=== PATIENT | female | born 1945 | race Caucasian/White ===

== ENCOUNTER → 2017-02-03 | Outpatient (CLI) | payer MEDICARE, OTHER ==
[2015-05-07 03:33] VITALS: BP 135/76
[~2017-02-03] MED LIST: ALBU18HF IH; AMLO1TAB95 PO; ATOR20TA PO; ATOR40TA PO; FEXO180T81 PO; LEVO50TA5 PO; LISI-334 PO; METO25TA9 PO; TICA90TA PO
[2017-02-03 19:32] LABS: ALBUMIN 3.6 g/dL (3.4-5.0); CALCIUM 9.7 mg/dL (8.5-10.1); CREATININE 1.4 mg/dL (0.6-1.0); GFR 37.2; PHOSPHORUS 4.1 mg/dL (2.6-4.7); POTASSIUM 3.9 mmol/L (3.5-5.1)
[2017-02-03 19:54] LABS: BASO # 0.1 x10^3/uL (0.0-0.2); BASO % 1 % (0-3); EOS # 0.2 x10^3/uL (0.0-0.7); EOS % 2 % (0-3); HEMATOCRIT 45.4 % (36.0-47.0); HEMOGLOBIN 15.2 g/dL (12.0-15.5); LYMPH # 2.7 x10^3/uL (1.0-4.8); LYMPH % 34 % (24-48); MEAN CORPUSCULAR HEMOGLOBIN 31 pg (25-35); MEAN CORPUSCULAR HGB CONC 34 g/dL (31-37); MEAN CORPUSCULAR VOLUME 93 fL (79-100); MONO # 0.6 x10^3/uL (0.0-1.1); MONO % 8 % (0-9); NEUT # 4.3 x10^3uL (1.8-7.7); NEUT % 55 % (31-73); PLATELET COUNT 193 x10^3/uL (140-400); RED BLOOD COUNT 4.87 x10^6/uL (3.50-5.40); RED CELL DISTRIBUTION WIDTH 15.5 % (11.5-14.5); WHITE BLOOD COUNT 7.9 x10^3/uL (4.0-11.0)
[2017-02-04 21:12] LABS: CREATININE PTH 1.29 mg/dL (0.57-1.00); PTH INTACT 45 pg/mL (15-65)
== END | disposition home or self-care (01) ==
LOC: LAB 18:42
PROVIDERS: ATTEND Internal Medicine Nephrology
DX: I12.9 Hypertensive chronic kidney disease with stage 1 through stage 4 chronic kidney disease, or unspecified chronic kidney disease (principal); N18.3 Chronic kidney disease, stage 3 (moderate)
CPT/HCPCS: 36415; 80069; 83970; 85027

== ENCOUNTER → 2017-05-10 | Outpatient (CLI) | payer MEDICARE, OTHER ==
[2015-05-07 03:33] VITALS: BP 135/76
[~2017-05-10] MED LIST changes: +IOHEXOL 240 MG/ML 50ML VIAL. ONE; +IOHEXOL 300 MG/ML 75 ML VIAL. IV ONE; +IOHEXOL 300 MG/ML 75 ML VIAL. ONE; +METO-239 PO; -METO25TA9 PO
[2017-05-10 09:28] LABS: CREATININE 1.4 mg/dL (0.6-1.0); GFR 37.1
--- NOTE | 2017-05-10 11:10 | RAD ---
EXAM: CT abdomen/pelvis with contrast. HISTORY: Incisional hernia. TECHNIQUE: Computed tomography of the abdomen and pelvis was performed after the intravenous administration of 60 mL Omnipaque 300. COMPARISON: 04/28/2013. FINDINGS: Lung windows through the visualized portions of the bases reveal mild atelectasis. Bone windows reveal no suspicious lesions. There is diffuse diastasis of the rectus muscles. The deep fascia protrudes in the periumbilical and supraumbilical regions, most notable superior to the umbilicus, where the distal stomach also protrudes into the region of diastasis. No clear superimposed hernia is present. A small cyst in the left hepatic lobe is stable. Another tiny cyst in segment 5 is likely benign. The gallbladder, pancreas, adrenal glands and spleen are unremarkable. The right kidney is severely atrophic. It contains calculi that measure up to 4 mm. Left renal calculus measures 3-4 mm. A subcentimeter cyst is noted in the left lower pole. There are changes of aortobifemoral bypass. The [place] aorta and iliac systems are segmentally occluded with segmental reconstitution in the common, internal and external iliac segments. The graft remains patent. There is a bulky mostly calcified atheroma just proximal to the origin of the graft that narrows the aortic lumen to 7 mm. There are no pathologically enlarged lymph nodes. Mild stranding in the retroperitoneum is likely postsurgical scarring. The uterus is surgically absent. The appendix is not inflamed. There is no obstruction. IMPRESSION: 1. Diffuse diastasis of the periumbilical and supraumbilical rectus muscles with protrusion of the deep fascia, but no clear hernia. 2. Status post aortobifemoral bypass. A large atheroma just proximal to the origin of the graft results in a abdominal aortic stenosis. The graft remains patent. 3. Severe right renal atrophy. Bilateral renal calculi measure up to 4 mm. *One or more of the following individualized dose reduction techniques were utilized for this examination: 1. Automated exposure control. 2. Adjustment of the mA and/or kV according to patient size. 3. Use of iterative reconstruction technique.
== END | disposition home or self-care (01) ==
LOC: CT 08:38
PROVIDERS: ATTEND Specialist
DX: K43.2 Incisional hernia without obstruction or gangrene (principal); I35.0 Nonrheumatic aortic (valve) stenosis; N20.0 Calculus of kidney; N26.1 Atrophy of kidney (terminal); K76.89 Other specified diseases of liver; J98.11 Atelectasis; Q79.59 Other congenital malformations of abdominal wall; I25.10 Atherosclerotic heart disease of native coronary artery without angina pectoris; I10 Essential (primary) hypertension; E03.9 Hypothyroidism, unspecified; E78.00 Pure hypercholesterolemia, unspecified; F17.210 Nicotine dependence, cigarettes, uncomplicated; Z95.1 Presence of aortocoronary bypass graft; Z90.710 Acquired absence of both cervix and uterus
CPT/HCPCS: 36415; 74177; 82565; Q9966; Q9967

== ENCOUNTER → 2017-09-14 | Outpatient (CLI) | payer MEDICARE, OTHER ==
[2015-05-07 03:33] VITALS: BP 135/76
[~2017-09-14] MED LIST changes: -IOHEXOL 240 MG/ML 50ML VIAL. ONE; -IOHEXOL 300 MG/ML 75 ML VIAL. IV ONE; -IOHEXOL 300 MG/ML 75 ML VIAL. ONE
[2017-09-14 18:48] LABS: BASO # 0.1 x10^3/uL (0.0-0.2); BASO % 1 % (0-3); EOS # 0.3 x10^3/uL (0.0-0.7); EOS % 3 % (0-3); HEMATOCRIT 47.3 % (36.0-47.0); HEMOGLOBIN 15.9 g/dL (12.0-15.5); LYMPH # 3.1 x10^3/uL (1.0-4.8); LYMPH % 32 % (24-48); MEAN CORPUSCULAR HEMOGLOBIN 32 pg (25-35); MEAN CORPUSCULAR HGB CONC 34 g/dL (31-37); MEAN CORPUSCULAR VOLUME 95 fL (79-100); MONO # 0.8 x10^3/uL (0.0-1.1); MONO % 9 % (0-9); NEUT # 5.4 x10^3uL (1.8-7.7); NEUT % 55 % (31-73); PLATELET COUNT 235 x10^3/uL (140-400); RED BLOOD COUNT 4.97 x10^6/uL (3.50-5.40); RED CELL DISTRIBUTION WIDTH 14.2 % (11.5-14.5); WHITE BLOOD COUNT 9.7 x10^3/uL (4.0-11.0)
[2017-09-14 18:59] LABS: ALBUMIN 3.8 g/dL (3.4-5.0); CALCIUM 9.6 mg/dL (8.5-10.1); CREATININE 1.3 mg/dL (0.6-1.0); GFR 40.4; MAGNESIUM 1.8 mg/dL (1.8-2.4); PHOSPHORUS 3.9 mg/dL (2.6-4.7); POTASSIUM 4.1 mmol/L (3.5-5.1)
[2017-09-14 19:06] LABS: BACTERIA,URINE 0 /HPF (0-FEW); BILIRUBIN,URINE NEG (NEG); CLARITY,URINE CLEAR; COLOR,URINE STRAW; GLUCOSE,URINE NEG (NEG); NITRITE,URINE NEG (NEG); RBC,URINE 0 /HPF (0-2); SQUAMOUS EPITHELIAL CELL,UR OCC /LPF; UROBILINOGEN,URINE 0.2 mg/dL (0.2 mg/dL); WBC,URINE OCC /HPF (0-4)
== END | disposition home or self-care (01) ==
LOC: LAB 17:34
PROVIDERS: ATTEND Family Medicine
DX: I12.9 Hypertensive chronic kidney disease with stage 1 through stage 4 chronic kidney disease, or unspecified chronic kidney disease (principal); N18.3 Chronic kidney disease, stage 3 (moderate); E78.5 Hyperlipidemia, unspecified
CPT/HCPCS: 80069; 81001; 83735; 84550; 85025

== ENCOUNTER 2017-12-21 15:08 | Inpatient (IN) | payer MEDICARE, OTHER ==
[~2017-12-21] VITALS: Ht 162.6 cm; Wt 67.4 kg
[2017-12-21] VITALS (8 sets, daily range): BP systolic 138–196; BP diastolic 76–92
[2017-12-21 16:15] LABS: BASO # 0.1 x10^3/uL (0.0-0.2); BASO % 1 % (0-3); EOS # 0.1 x10^3/uL (0.0-0.7); EOS % 1 % (0-3); HEMATOCRIT 46.8 % (36.0-47.0); HEMOGLOBIN 16.1 g/dL (12.0-15.5); LYMPH # 2.2 x10^3/uL (1.0-4.8); LYMPH % 22 % (24-48); MEAN CORPUSCULAR HEMOGLOBIN 32 pg (25-35); MEAN CORPUSCULAR HGB CONC 34 g/dL (31-37); MEAN CORPUSCULAR VOLUME 93 fL (79-100); MONO # 0.8 x10^3/uL (0.0-1.1); MONO % 9 % (0-9); NEUT # 6.6 x10^3uL (1.8-7.7); NEUT % 67 % (31-73); PLATELET COUNT 246 x10^3/uL (140-400); RED BLOOD COUNT 5.02 x10^6/uL (3.50-5.40); RED CELL DISTRIBUTION WIDTH 13.7 % (11.5-14.5); WHITE BLOOD COUNT 9.7 x10^3/uL (4.0-11.0)
[2017-12-21] MEDS ORDERED: ASPI-630 PO (16:23)
[2017-12-21] MEDS ORDERED: ALBU8.5H8 INH (16:23)
--- NOTE | 2017-12-21 16:28 | RAD ---
Chest, 2 views, 12/21/2017: HISTORY: Shortness of breath, weakness Comparison is made to a study from 05/07/2015. The heart is at the upper limits of normal in size. There is mild calcific plaquing and tortuosity of the thoracic aorta. The pulmonary vascularity is normal. A calcified granuloma is present in the right upper lobe. No acute infiltrate is seen. There is no evidence of pleural fluid. IMPRESSION: 1. Borderline cardiomegaly and aortic atherosclerosis. 2. No acute abnormality is detected. Electronically signed by: Collin Mosquera MD (12/21/2017 4:24 PM) [facility]
[2017-12-21 16:30] LABS: ALBUMIN 3.7 g/dL (3.4-5.0); CALCIUM 10.1 mg/dL (8.5-10.1); CREATININE 1.1 mg/dL (0.6-1.0); POTASSIUM 4.1 mmol/L (3.5-5.1); TOTAL BILIRUBIN 0.3 mg/dL (0.2-1.0); TOTAL PROTEIN 7.4 g/dL (6.4-8.2)
[2017-12-21] MEDS: hydrALAZINE 20 MG/ML VIAL. IV PRN (17:11)
[2017-12-21] MEDS ORDERED: ALBUTEROL SULFATE 8GM INHALER. INH PRN (18:30)
[2017-12-21] MEDS ORDERED: ALBUTEROL SULFATE 2.5 MG/3 ML NEBU. NEB PRN (18:45)
--- NOTE | 2017-12-21 18:50 | EKG ---
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
[2017-12-21 19:25] LABS: BACTERIA,URINE 0 /HPF (0-FEW); BILIRUBIN,URINE NEG (NEG); CLARITY,URINE CLEAR; COLOR,URINE STRAW; GLUCOSE,URINE NEG (NEG); NITRITE,URINE NEG (NEG); RBC,URINE OCC /HPF (0-2); SQUAMOUS EPITHELIAL CELL,UR OCC /LPF; UROBILINOGEN,URINE 0.2 mg/dL (0.2 mg/dL); WBC,URINE OCC /HPF (0-4)
[2017-12-21] MEDS: hydrALAZINE 25 MG TABLET PO SCH (20:00)
[2017-12-21] MEDS: ATORVASTATIN CALCIUM 20 MG TABLET PO SCH (20:00)
[2017-12-22] VITALS (16 sets, daily range): BP systolic 119–206; BP diastolic 57–92
[2017-12-22] MEDS: hydrALAZINE 20 MG/ML VIAL. IV PRN (00:55)
[2017-12-22 06:25] LABS: BASO # 0.1 x10^3/uL (0.0-0.2); BASO % 1 % (0-3); EOS # 0.2 x10^3/uL (0.0-0.7); EOS % 2 % (0-3); HEMATOCRIT 45.8 % (36.0-47.0); HEMOGLOBIN 15.5 g/dL (12.0-15.5); LYMPH # 3.1 x10^3/uL (1.0-4.8); LYMPH % 31 % (24-48); MEAN CORPUSCULAR HEMOGLOBIN 31 pg (25-35); MEAN CORPUSCULAR HGB CONC 34 g/dL (31-37); MEAN CORPUSCULAR VOLUME 93 fL (79-100); MONO # 0.9 x10^3/uL (0.0-1.1); MONO % 9 % (0-9); NEUT # 5.8 x10^3uL (1.8-7.7); NEUT % 58 % (31-73); PLATELET COUNT 232 x10^3/uL (140-400); RED BLOOD COUNT 4.92 x10^6/uL (3.50-5.40); WHITE BLOOD COUNT 10.1 x10^3/uL (4.0-11.0)
[2017-12-22] MEDS: LEVOTHYROXINE 50 MCG TABLET PO SCH (06:25)
[2017-12-22 06:30] LABS: CALCIUM 9.2 mg/dL (8.5-10.1); CREATININE 1.2 mg/dL (0.6-1.0); GFR 44.3; POTASSIUM 3.9 mmol/L (3.5-5.1)
[2017-12-22] MEDS: LISINOPRIL 20 MG TABLET PO SCH (08:48)
[2017-12-22] MEDS: ASPIRIN 81 MG TAB.CHEW PO SCH (08:48)
[2017-12-22] MEDS: CETIRIZINE HCL 10 MG TABLET PO SCH (08:49)
--- NOTE | 2017-12-22 10:13 | PDOC2 ---
[address]ISONLEXX [address] SUPERVISOR 12/22/17 1013: CONSULT Date of Admission DATE: 12/22/17 TIME: 10:01 Reason for Consult: bradycardia, AVB noted in PCP office. History of Present Illness Ms Hernandez is a 72 year old female with known history of coronary artery disease s /p stemi in 2014 with PCI and stenting to LCX, and peripheral vascular disease s/p aorto bi fem bypass with bilateral TELEVISION PROGRAM DIRECTOR, Profunda and SFA endarterectomy, hypertension and hyperlipidemia. She presented to the PCP office yesterday with complaints of fatigue over the last 3-4 weeks. She did undergo an EKG which was thought to reveal AV block so she was sent to the hospital for evaluation and treatment. She reports sudden onset of fatigue about a month ago. She reports decreased tolerance for ADLs and electroencephalograph technician. Her daughter reports that she frequently falls asleep sitting. She denies any chest discomfort, lightheadedness or dizziness. She denies any palpitations or syncope. She did report to her PCP a cough off and on starting about 1 week ago but currently denies any respiratory symptoms. She does report inhaler use several times per week. She denies congestive symptoms, fever, chills or sick contacts. She denies edema or significant weight change. She also reported to her PCP intermittent Jaw pain for about 1 week but does not currently complain of this symptom. Past Medical History Echo Jul 2017 LVEF 65% Normal wall motion Trace MR Trace TR no significant effusion MPI 01/02/16 Small to moderate infarct involving the base to mid inferior wall without any ischemia Basal inferior wall hypokinesis with EF 69% Cardiac cath 08/19/14 LM without significant stenosis LAD without significant stenosis LCX with 90% midsegment and 100% stenosis in AV groove beyond takeoff of 1st OM. OM1 70% stenosis id to distal segment. RCA without significant stenosis. s/p successful PCI and stent placement with integrity stents to LCX. Femoral Runoff 10/12/14 80% calcified stenosis distal descending aorta. 80% calcified stenosis proximal right common iliac. 90% calcified stenosis left common iliac. 30% stenosis left external iliac. 30% stenosis right common femoral. No significant stenosis left common femoral. 90-95% calcified stenosis very proximal left superficial femoral. 30% stenosis distal left superficial femoral. No significant stenosis bilateral popliteal. 01/28/16 Aorto Bi Femoral Bypass, bilateral TELEVISION PROGRAM DIRECTOR, Profunda and SFA endarterectomy. 03/26/16 ZULAY biphasic/monophasic waveforms and ZULAY indices indicated nor significant arterial insufficiency at rest. 11/13/16 Carotid duplex <50% bilateral ICA with antegrade vertebral flow. Cardiovascular: CAD, HTN, DE, hyperipidemia, Other (PAD) Pulmonary: Other (emphysema) Musculoskeletal: Other (osteoporosis) ENT: Other (chronic rhinitis) Endocrine: Hypothyroidism Past Surgical History: Mastectomy, Hysterectomy, Other (aortobifemoral bypass surgery, left breast nodule removal) Family History hypertension Social History smoker 0.5-1 ppd, no significant ETOH, no illicit drug use Current Medications Current Medications Hydralazine HCl (Apresoline) 10 mg PRN Q6HRS PRN IV ELEVATED BP, SEE COMMENTS Last administered on 12/22/17at 00:55; Start 12/21/17 at 16:45 Albuterol Sulfate (Ventolin Hfa) 1 puff PRN Q6HRS PRN INH SHORTNESS OF BREATH; Start 12/21/17 at 18:30; Status UNV Lisinopril (Prinivil) 20 mg DAILY PO Last administered on 12/22/17at 08:48; Start 12/22/17 at 09:00 Aspirin (Children'S Aspirin) 81 mg DAILY PO Last administered on 12/22/17at 08: 48; Start 12/22/17 at 09:00 Atorvastatin Calcium (Lipitor) 40 mg QHS PO Last administered on 12/21/17at 20: 00; Start 12/21/17 at 21:00 Cetirizine HCl (ZyrTEC) 10 mg DAILY PO Last administered on 12/22/17at 08:49; Start 12/22/17 at 09:00 Levothyroxine Sodium (Synthroid) 50 mcg DAILY07 PO Last administered on at 06:25; Start 12/22/17 at 07:00 Hydralazine HCl (Apresoline) 25 mg TID PO Last administered on 12/21/17at 20:00 ; Start 12/21/17 at 21:00 Albuterol Sulfate (Ventolin) 2.5 mg PRN Q6HRS PRN NEB SHORTNESS OF BREATH; Start 12/21/17 at 18:45 Active Scripts Active Reported Aspirin 81 Mg Tab.chew 81 Mg PO DAILY Proair Hfa Inhaler (Albuterol Sulfate) 8.5 Gm Hfa.aer.ad 1 Puff INH PRN Q6HRS PRN Lipitor (Atorvastatin Calcium) 40 Mg Tablet 40 Mg PO QHS Lisinopril 20 Mg Tablet 20 Mg PO DAILY Metoprolol Succinate ( Xl ) (Metoprolol Succinate) 25 Mg Tab.er.24h 25 Mg PO DAILY Levothyroxine Sodium 50 Mcg Tablet 1 Tab PO DAILY Abbey Allergy (Fexofenadine Hcl) 180 Mg Tablet 180 Mg PO DAILY Allergies: Coded Allergies: Sulfa (Sulfonamide Antibiotics) (Unverified Allergy, Intermediate, 05/07/15 ) sulfamethoxazole (Unverified Allergy, Intermediate, 05/07/15) trimethoprim (Unverified Allergy, Intermediate, 05/07/15) hydrocodone (Unverified Allergy, Mild, vomiting, 05/07/15) I S O L A T I O N *CONTACT* (Verified Allergy, Unknown, 12/23/17) +MRSA screen 12/22/17 Review of System as per HPI or negative General: Alert, Oriented X3, Cooperative, No acute distress HEENT: Atraumatic, EOMI, Mucous membr. moist/pink, Other (no JVD/HJR/carotid bruits) Lungs: Other (decreased with occasional expiratory wheeze) Heart: Other (bradycardic without significant murmurs, no gallops, clicks or rubs) Abdomen: Normal bowel sounds, Soft, No tenderness Extremities: No cyanosis, No edema Neuro: Normal speech, Strength at 5/5 X4 ext Psych/Mental Status: Mental status NL, Mood NL VITALS Vital Signs Date Time Temp Pulse Resp B/P (MAP) Pulse Ox O2 Delivery O2 Flow Rate FiO2 12/22/17 08:48 66 158/87 12/22/17 08:30 Room Air 12/22/17 08:14 20 96 12/22/17 06:15 98.3 Labs Laboratory Tests Test 12/21/17 15:45 12/21/17 19:05 12/21/17 22:00 12/22/17 05:35 White Blood Count 9.7 x10^3/uL (4.0-11.0) 10.1 x10^3/uL (4.0-11.0) Red Blood Count 5.02 x10^6/uL (3.50-5.40) 4.92 x10^6/uL (3.50-5.40) Hemoglobin 16.1 g/dL (12.0-15.5) 15.5 g/dL (12.0-15.5) Hematocrit 46.8 % (36.0-47.0) 45.8 % (36.0-47.0) Mean Corpuscular Volume 93 fL (79-100) 93 fL (79-100) Mean Corpuscular Hemoglobin 32 pg (25-35) 31 pg (25-35) Mean Corpuscular Hemoglobin Concent 34 g/dL (31-37) 34 g/dL (31-37) Red Cell Distribution Width 13.7 % (11.5-14.5) 14.0 % (11.5-14.5) Platelet Count 246 x10^3/uL (140-400) 232 x10^3/uL (140-400) Neutrophils (%) (Auto) 67 % (31-73) 58 % (31-73) Lymphocytes (%) (Auto) 22 % (24-48) 31 % (24-48) Monocytes (%) (Auto) 9 % (0-9) 9 % (0-9) Eosinophils (%) (Auto) 1 % (0-3) 2 % (0-3) Basophils (%) (Auto) 1 % (0-3) 1 % (0-3) Neutrophils # (Auto) 6.6 x10^3uL (1.8-7.7) 5.8 x10^3uL (1.8-7.7) Lymphocytes # (Auto) 2.2 x10^3/uL (1.0-4.8) 3.1 x10^3/uL (1.0-4.8) Monocytes # (Auto) 0.8 x10^3/uL (0.0-1.1) 0.9 x10^3/uL (0.0-1.1) Eosinophils # (Auto) 0.1 x10^3/uL (0.0-0.7) 0.2 x10^3/uL (0.0-0.7) Basophils # (Auto) 0.1 x10^3/uL (0.0-0.2) 0.1 x10^3/uL (0.0-0.2) Sodium Level 138 mmol/L (136-145) 140 mmol/L (136-145) Potassium Level 4.1 mmol/L (3.5-5.1) 3.9 mmol/L (3.5-5.1) Chloride Level 101 mmol/L (98-107) 103 mmol/L (98-107) Carbon Dioxide Level 28 mmol/L (21-32) 28 mmol/L (21-32) Anion Gap 9 (6-14) 9 (6-14) Blood Urea Nitrogen 14 mg/dL (7-20) 14 mg/dL (7-20) Creatinine 1.1 mg/dL (0.6-1.0) 1.2 mg/dL (0.6-1.0) Estimated GFR (Cockcroft-Gault) 49.0 44.3 BUN/Creatinine Ratio 13 (6-20) Glucose Level 108 mg/dL (70-99) 104 mg/dL (70-99) Calcium Level 10.1 mg/dL (8.5-10.1) 9.2 mg/dL (8.5-10.1) Total Bilirubin 0.3 mg/dL (0.2-1.0) Aspartate Amino Transf (AST/SGOT) 14 U/L (15-37) Alanine Aminotransferase (ALT/SGPT) 17 U/L (14-59) Alkaline Phosphatase 113 U/L (46-116) Creatine Kinase 82 U/L (26-192) Troponin I Quantitative 0.078 ng/mL (0-0.055) 0.076 ng/mL (0-0.055) 0.085 ng/mL (0-0.055) BE-Ouz-P-Type Natriuretic Peptide 2737 pg/mL (0-124) Total Protein 7.4 g/dL (6.4-8.2) Albumin 3.7 g/dL (3.4-5.0) Albumin/Globulin Ratio 1.0 (1.0-1.7) Urine Collection Type Unknown Urine Color Straw Urine Clarity Clear Urine pH 7.0 Urine Specific Simpson 1.010 Urine Protein Neg (NEG-TRACE) Urine Glucose (UA) Neg mg/dL (NEG) Urine Ketones (Stick) Neg mg/dL (NEG) Urine Blood Neg (NEG) Urine Nitrite Neg (NEG) Urine Bilirubin Neg (NEG) Urine Urobilinogen Dipstick 0.2 mg/dL (0.2 mg/dL) Urine Leukocyte Esterase Neg (NEG) Urine RBC Occ /HPF (0-2) Urine WBC Occ /HPF (0-4) Urine Squamous Epithelial Cells Occ /LPF Urine Bacteria 0 /HPF (0-FEW) Magnesium Level 1.9 mg/dL (1.8-2.4) Images EKG -Sinus bradycardia, 1st degree AVB, non specific st/t abn EKG from PCP office, sinus bradycardia, 1st degree AVB, non specific st/t abn, PACs. CXR - IMPRESSION: 1. Borderline cardiomegaly and aortic atherosclerosis. 2. No acute abnormality is detected. Assessment/Plan 1. Bradycardia - Sinus bradycardia, 1st degree AVB with occasional PACs. 2. elevated troponin - mild in the setting of uncontrolled hypertension 3. accelerated hypertension 4. CAD with history of stemi in 2014 with PCI/Stent to LCX 5. PAD s/p aortobifem bypass 6. HLD 7. Tobaccoism Bradycardia appears to be sinus with 1st degree AVB. No advanced conduction abnormalities noted. Heart rate has been stable with bradycardia for some time however due to progressive fatigue will hold beta blockers, check TSH and suggest outpatient monitor. Troponin elevation appears to be demand related secondary to accelerated hypertension, however in light of sudden onset of progressive fatigue, as well as intermittent jaw pain reported to PCP, will schedule for MPI to rule out progression of CAD. Hydralazine for improved blood pressure control and will add nitrates as well. Echo in July of this year revealed normal LV function. Check lipids, continue statin and strongly encourage smoking cessation. ED PACHECO MD 12/23/17 1557: CONSULT Assessment/Plan Late entry for 12/22/2017. Patient seen and examined. Agree with above nurse practitioner note. Her EKG does not reveal any evidence of AV block. She has occasional PVCs. Supportive care from a cardiac standpoint. Myocardial perfusion study did not reveal any significant ischemia. LEXX ROSAS APRN Dec 22, 2017 10:13 ED PACHECO MD Dec 23, 2017 15:57
[2017-12-22] MEDS: hydrALAZINE 25 MG TABLET PO SCH ×3 (10:19→20:19)
[2017-12-22] MEDS: ISOSORBIDE MONONITRATE ER 30 MG TAB.ER.24H PO SCH (13:42)
[2017-12-22] MEDS: ATORVASTATIN CALCIUM 20 MG TABLET PO SCH (20:19)
[2017-12-23] MEDS: LEVOTHYROXINE 50 MCG TABLET PO SCH (05:16)
[2017-12-23 05:45] VITALS: BP 146/80
[2017-12-23] MEDS: hydrALAZINE 25 MG TABLET PO SCH ×2 (08:56→15:10)
[2017-12-23] MEDS: ASPIRIN 81 MG TAB.CHEW PO SCH (08:56)
[2017-12-23] MEDS: LISINOPRIL 20 MG TABLET PO SCH (08:56)
[2017-12-23] MEDS: ISOSORBIDE MONONITRATE ER 30 MG TAB.ER.24H PO SCH (08:56)
[2017-12-23] MEDS: CETIRIZINE HCL 10 MG TABLET PO SCH (08:57)
[2017-12-23] MEDS ORDERED: REGADENOSON 0.4 MG/5 ML DISP.SYRIN. IV ONE (09:00)
[2017-12-23 10:52] VITALS: BP 144/70
--- NOTE | 2017-12-23 13:47 | PDOC ---
PROGRESS NOTES Assessment 1. Bradycardia - Sinus bradycardia, 1st degree AVB with occasional PACs. - rate improved off beta blockers. More frequent PVCs. Outpatient monitor with PVC burden on discharge. 2. elevated troponin - mild in the setting of uncontrolled hypertension - MPI today 3. accelerated hypertension - blood pressure significantly improved on hydralazine and imdur. 4. CAD with history of stemi in 2014 with PCI/Stent to LCX - continue current medical mgmt and await MPI 5. PAD s/p aortobifem bypass - continue medical mgmt 6. HLD- lipids pending 7. Tobaccoism - cessation encouraged Subjective seen during stress testing. no chest pain, no significant palpitations, no lightheadedness. Objective tele sinus rhythm with PACs and PVCs. 1x 5beat NSVT. No AV block noted. Vital Signs Date Time Temp Pulse Resp B/P (MAP) Pulse Ox O2 Delivery O2 Flow Rate FiO2 12/23/17 10:52 98.7 84 20 144/70 (94) 93 Room Air Intake and Output 12/23/17 07:00 Intake Total 1420 ml Balance 1420 ml Intake Oral 1420 ml # Voids 4 Abdomen: Normal bowel sounds, Soft Heart: Other (IRR, no gallops, clicks or rubs) Extremities: No cyanosis, Normal pulses General: Alert, Oriented X3, Cooperative Lungs: Other (decreased) Neuro: Normal speech, Strength at 5/5 X4 ext Psych/Mental Status: Mental status NL, Mood NL Review of Relevant I have reviewed the following items zakia (where applicable) has been applied. Labs Laboratory Tests Test 12/21/17 15:45 12/21/17 19:05 12/21/17 22:00 12/22/17 00:25 White Blood Count 9.7 x10^3/uL (4.0-11.0) Red Blood Count 5.02 x10^6/uL (3.50-5.40) Hemoglobin 16.1 g/dL (12.0-15.5) Hematocrit 46.8 % (36.0-47.0) Mean Corpuscular Volume 93 fL (79-100) Mean Corpuscular Hemoglobin 32 pg (25-35) Mean Corpuscular Hemoglobin Concent 34 g/dL (31-37) Red Cell Distribution Width 13.7 % (11.5-14.5) Platelet Count 246 x10^3/uL (140-400) Neutrophils (%) (Auto) 67 % (31-73) Lymphocytes (%) (Auto) 22 % (24-48) Monocytes (%) (Auto) 9 % (0-9) Eosinophils (%) (Auto) 1 % (0-3) Basophils (%) (Auto) 1 % (0-3) Neutrophils # (Auto) 6.6 x10^3uL (1.8-7.7) Lymphocytes # (Auto) 2.2 x10^3/uL (1.0-4.8) Monocytes # (Auto) 0.8 x10^3/uL (0.0-1.1) Eosinophils # (Auto) 0.1 x10^3/uL (0.0-0.7) Basophils # (Auto) 0.1 x10^3/uL (0.0-0.2) Sodium Level 138 mmol/L (136-145) Potassium Level 4.1 mmol/L (3.5-5.1) Chloride Level 101 mmol/L (98-107) Carbon Dioxide Level 28 mmol/L (21-32) Anion Gap 9 (6-14) Blood Urea Nitrogen 14 mg/dL (7-20) Creatinine 1.1 mg/dL (0.6-1.0) Estimated GFR (Cockcroft-Gault) 49.0 BUN/Creatinine Ratio 13 (6-20) Glucose Level 108 mg/dL (70-99) Calcium Level 10.1 mg/dL (8.5-10.1) Total Bilirubin 0.3 mg/dL (0.2-1.0) Aspartate Amino Transf (AST/SGOT) 14 U/L (15-37) Alanine Aminotransferase (ALT/SGPT) 17 U/L (14-59) Alkaline Phosphatase 113 U/L (46-116) Creatine Kinase 82 U/L (26-192) Troponin I Quantitative 0.078 ng/mL (0-0.055) 0.076 ng/mL (0-0.055) VC-Fzk-M-Type Natriuretic Peptide 2737 pg/mL (0-124) Total Protein 7.4 g/dL (6.4-8.2) Albumin 3.7 g/dL (3.4-5.0) Albumin/Globulin Ratio 1.0 (1.0-1.7) Thyroid Stimulating Hormone (TSH) 3.534 uIU/mL (0.358-3.740) Urine Collection Type Unknown Urine Color Straw Urine Clarity Clear Urine pH 7.0 Urine Specific [place] 1.010 Urine Protein Neg (NEG-TRACE) Urine Glucose (UA) Neg mg/dL (NEG) Urine Ketones (Stick) Neg mg/dL (NEG) Urine Blood Neg (NEG) Urine Nitrite Neg (NEG) Urine Bilirubin Neg (NEG) Urine Urobilinogen Dipstick 0.2 mg/dL (0.2 mg/dL) Urine Leukocyte Esterase Neg (NEG) Urine RBC Occ /HPF (0-2) Urine WBC Occ /HPF (0-4) Urine Squamous Epithelial Cells Occ /LPF Urine Bacteria 0 /HPF (0-FEW) Nasal Screen MRSA (PCR) Positive (Negative) Test 12/22/17 05:35 12/23/17 05:51 White Blood Count 10.1 x10^3/uL (4.0-11.0) Red Blood Count 4.92 x10^6/uL (3.50-5.40) Hemoglobin 15.5 g/dL (12.0-15.5) Hematocrit 45.8 % (36.0-47.0) Mean Corpuscular Volume 93 fL (79-100) Mean Corpuscular Hemoglobin 31 pg (25-35) Mean Corpuscular Hemoglobin Concent 34 g/dL (31-37) Red Cell Distribution Width 14.0 % (11.5-14.5) Platelet Count 232 x10^3/uL (140-400) Neutrophils (%) (Auto) 58 % (31-73) Lymphocytes (%) (Auto) 31 % (24-48) Monocytes (%) (Auto) 9 % (0-9) Eosinophils (%) (Auto) 2 % (0-3) Basophils (%) (Auto) 1 % (0-3) Neutrophils # (Auto) 5.8 x10^3uL (1.8-7.7) Lymphocytes # (Auto) 3.1 x10^3/uL (1.0-4.8) Monocytes # (Auto) 0.9 x10^3/uL (0.0-1.1) Eosinophils # (Auto) 0.2 x10^3/uL (0.0-0.7) Basophils # (Auto) 0.1 x10^3/uL (0.0-0.2) Sodium Level 140 mmol/L (136-145) Potassium Level 3.9 mmol/L (3.5-5.1) Chloride Level 103 mmol/L (98-107) Carbon Dioxide Level 28 mmol/L (21-32) Anion Gap 9 (6-14) Blood Urea Nitrogen 14 mg/dL (7-20) Creatinine 1.2 mg/dL (0.6-1.0) Estimated GFR (Cockcroft-Gault) 44.3 Glucose Level 104 mg/dL (70-99) Calcium Level 9.2 mg/dL (8.5-10.1) Magnesium Level 1.9 mg/dL (1.8-2.4) Iron Level 68 ug/dL (50-170) Total Iron Binding Capacity 302 ug/dL (250-450) Iron Saturation 23 % (15-34) Troponin I Quantitative 0.085 ng/mL (0-0.055) Vitamin B12 Level 1094 pg/mL (247-911) Serum Folate 9.32 ng/ml (3.2-20.0) D-Dimer (Alexa) 0.93 mg/L (0.00-0.50) Medications Current Medications Hydralazine HCl (Apresoline) 10 mg PRN Q6HRS PRN IV ELEVATED BP, SEE COMMENTS Last administered on 12/22/17at 00:55; Start 12/21/17 at 16:45 Albuterol Sulfate (Ventolin Hfa) 1 puff PRN Q6HRS PRN INH SHORTNESS OF BREATH; Start 12/21/17 at 18:30; Status UNV Lisinopril (Prinivil) 20 mg DAILY PO Last administered on 12/23/17at 08:56; Start 12/22/17 at 09:00 Aspirin (Children'S Aspirin) 81 mg DAILY PO Last administered on 12/23/17at 08: 56; Start 12/22/17 at 09:00 Atorvastatin Calcium (Lipitor) 40 mg QHS PO Last administered on 12/22/17at 20: 19; Start 12/21/17 at 21:00 Cetirizine HCl (ZyrTEC) 10 mg DAILY PO Last administered on 12/23/17at 08:57; Start 12/22/17 at 09:00 Levothyroxine Sodium (Synthroid) 50 mcg DAILY07 PO Last administered on at 05:16; Start 12/22/17 at 07:00 Hydralazine HCl (Apresoline) 25 mg TID PO Last administered on 12/23/17at 08:56 ; Start 12/21/17 at 21:00 Albuterol Sulfate (Ventolin) 2.5 mg PRN Q6HRS PRN NEB SHORTNESS OF BREATH Last administered on 12/22/17at 10:51; Start 12/21/17 at 18:45 Isosorbide Mononitrate (Imdur) 30 mg DAILY PO Last administered on 12/23/17at 08 :56; Start 12/22/17 at 12:00 Regadenoson (Lexiscan) 0.4 mg 1X ONCE IV Last administered on 12/23/17at 13:22 ; Start 12/23/17 at 09:00; Stop 12/23/17 at 09:01; Status DC Active Scripts Active Reported Aspirin 81 Mg Tab.chew 81 Mg PO DAILY Proair Hfa Inhaler (Albuterol Sulfate) 8.5 Gm Hfa.aer.ad 1 Puff INH PRN Q6HRS PRN Lipitor (Atorvastatin Calcium) 40 Mg Tablet 40 Mg PO QHS Lisinopril 20 Mg Tablet 20 Mg PO DAILY Metoprolol Succinate ( Xl ) (Metoprolol Succinate) 25 Mg Tab.er.24h 25 Mg PO DAILY Levothyroxine Sodium 50 Mcg Tablet 1 Tab PO DAILY Abbey Allergy (Fexofenadine Hcl) 180 Mg Tablet 180 Mg PO DAILY Vitals/I & O Vital Sign - Last 24 Hours 12/22/17 12/22/17 12/22/17 12/22/17 13:42 13:43 16:52 19:25 Temp 99.3 Pulse 83 83 83 Resp 24 B/P (MAP) 181/73 181/73 120/72 (88) Pulse Ox 96 O2 Delivery Room Air Room Air 12/22/17 12/22/17 12/22/17 12/23/17 19:25 20:19 22:20 05:45 Temp 98.2 97.8 98.0 Pulse 86 86 67 78 Resp 18 18 18 B/P (MAP) 143/72 (95) 143/72 124/69 (87) 146/80 (102) Pulse Ox 95 96 95 O2 Delivery Room Air Room Air Room Air 12/23/17 12/23/17 12/23/17 12/23/17 08:56 08:56 08:56 10:52 Temp 98.7 Pulse 78 78 78 84 Resp 20 B/P (MAP) 146/80 146/80 146/80 144/70 (94) Pulse Ox 93 O2 Delivery Room Air Intake and Output 12/22/17 12/22/17 12/23/17 15:00 23:00 07:00 Intake Total 250 ml 1170 ml 0 ml Balance 250 ml 1170 ml 0 ml LEXX ROSAS LANCE CREWMEMBER/MLRS SERGEANT Dec 23, 2017 13:47
--- NOTE | 2017-12-23 14:02 | PN ---
DATE: 12/23/2017 SUBJECTIVE: The patient resting fairly comfortably, going through nuclear studies, stress test and the like for possible coronary artery disease. OBJECTIVE: VITAL SIGNS: Blood pressure 140/70, respiratory rate 20, pulse 84 and afebrile. GENERAL: The patient is alert and oriented. LUNGS: Diminished, but clear. CARDIOVASCULAR: Regular sinus rhythm. ABDOMEN: Soft, nontender. PLAN: We will wait for the results of the testing from the toxics program officer to make further assessment. IMPRESSION: First-degree AV block, borderline cardiomegaly, bradycardia, coronary artery disease, history of stent in 2014. We will await results of the stress test and also continue to encourage her to stop smoking. CIRO AUSTIN MD DR: CHRISTIAN/kat JOB#: [id number] / [id number]
[2017-12-23 15:10] VITALS: BP 144/70
--- NOTE | 2017-12-23 15:28 | RAD ---
MR#: [id number] Date of Study: 12/22/2017 Ordering Physician: LEXX ROSAS, Referring Physician: SIERRA CHAPA Tech: KARSTEN Bingham ARRT (Susan) (N) APPROVED REPORT Test Type: Pharmacological Stress Nurse/Tech: ISIDRO LANDA Test Indications: SOB, ELEVATED TROPONIN,CAD Cardiac History: See Electronic Medical Record Medications: See Electronic Medical Record Medical History: See Electronic Medical Record Resting ECG: SR Resting Heart Rate: 70 bpm Resting Blood Pressure: 159/74mmHg Pretest Chest Pain: None Nurse/Tech Notes SR NO CHANGES Consent: The procedure was explained to the patient in lay terms. Informed consent was witnessed. Josué eout was entered into [employer]. History and Stress Test performed by KARSTEN Bingham ARRT (Susan) (N) Pharm. Details Pharmacologic stress testing was performed using 0.4mg per 5ml of regadenoson given intravenously ove r 7-10 seconds. Stress Symptoms Dyspnea POST EXERCISE Reason for Termination: Infusion complete Target HR: No Max HR: 112 bpm 88% of Maximum Predicted HR: 126 bpm Exercise duration: 6 min:sec, Stage Max Blood Pressure: 168/72mmHg Blood Pressure response to exercise: Normal blood pressure response during stress. Chest Pain: No. ST Change: No. INTERPRETATION Stress EKG Conclusion: NO ACUTE CHANGES Imaging Protocol IMAGE PROTOCOL: Rest Tc-99m/stress Tc-99m 2 days Rest: Stress: Viability: Radiopharm.Tc99m CqurtwsiuMw35e Sestamibi Jznb30gZw 32mCi Img Date 12/22/2017 12/23/2017 Inj-Img [id number]. 90min. Rest Admin Site:IV - Left AntecubitalAdministrator: KARSTEN Bingham ARRT (Susan)(N) Stress Admin Site: IV - Left AntecubitalAdministrator: KARSTEN Bingham ARRT (R)(N) STRESS DATA End Diast. Vol.82.0mlAv. Heart Rate93.0bpm LVEDV index BSA2.0mlCardiac Output0.1L/min End Syst. Vol.24.0mlCO Index BSA5.4L/min LVESV index BSA0.0mlMyocardial Jrfw585.0g Eject. Whpmaucm82.0% Stress Rates Pk. Fill Rate3.84EDV/secLVtime Pk. Fill 170.58msec Pk. Empty Rate4.16ESV/secLVtime Pk. Eject77.09msec 1/3 Pk. Fill1.12EDV/sec Stress Scores Regional WT0.00Summed WT3.00 Regional WM0.00Summed WM4.00 LV Perfusion There is a moderate sized, severe in intensity fixed basal to mid inferior wall defect suggestive of prior infarct without active ischemia. Wall Motion Normal wall motion with EF of 60% LV Perf. Quant 17 Seg. SSS4.00 17 Seg. SRS7.00 17 Seg. SDS0.00 Stress Defect Extent (% LAD)0.00Rest Defect Extent (% LAD)0.00Rev. Defect Extent (% LAD)0.00 Stress Defect Extent (% LCX) 0.00Rest Defect Extent (% LCX)7.50Rev. Defect Extent (% LCX)0.00 Stress Defect Extent (% RCA)26.70Rest Defect Extent (% RCA)32.20Rev. Defect Extent (% RCA)1.10 Stress Defect Extent (% RADHA)8.00Rest Defect Extent (% RADHA)10.20Rev. Defect Extent (% RADHA)0.40 Other Information Quality:Average Risk Assessment: Low-Moderate Risk Conclusion 1. No evidence of EKG changes with stress testing. 2. FIXED inferior wall defect. No ischemia. 3. Low to moderate risk study. 4. EF > 60%. Signed by : Sterling Nation, Electronically Approved : 12/23/2017 15:27:20
[2017-12-23] MEDS ORDERED: HYDR-2868 PO (16:26)
[2017-12-23] MEDS ORDERED: ISOS30TA4 PO (16:26)
--- NOTE | 2017-12-29 17:59 | DS ---
DATE OF DISCHARGE: 12/23/2017 HOSPITAL COURSE: A 72-year-old female came in through the office with generalized weakness, feeling rundown. The patient has significant problems with coronary artery disease as well as vascular disease over the years. The patient's EKG in the office appeared to show some type of a heart block, and as a result of this, the patient was admitted to the hospital for further evaluation and treatment. The patient was brought in. She was seen by Cardiology and evaluated. The diesel retrofit designer felt the patient had some form of a first degree AV block, but did not require any further aggressive therapy. She had bradycardia. She will be seen as an outpatient. She made good progress during the rest of her hospitalization and she was discharged to home. IMPRESSION: Bradycardia, elevated troponin, possibly related to uncontrolled hypertension, accelerated hypertension, coronary artery disease, history of ST elevation myocardial infarction in 2014 with stent placements, peripheral artery disease, aortobifemoral bypass, hyperlipidemia, tobaccoism. The patient will be discharged home on a heart healthy diet, decreased activity. Return for followup with primary care as well as her diesel retrofit designer as an outpatient. CIRO AUSTIN MD DR: CHRISTIAN/kat JOB#: [id number] / [id number]
== END 2017-12-23 17:16 | disposition home or self-care (01) | DRG 310 ==
LOC: ICU 15:08 → 1 SOUTH 15:18 → ICU 12-22 00:15 → 1 SOUTH 12-22 15:02
PROVIDERS: ADMIT Family Medicine; ATTEND Family Medicine
DX: I44.0 Atrioventricular block, first degree (principal); E03.9 Hypothyroidism, unspecified; E78.5 Hyperlipidemia, unspecified; F17.200 Nicotine dependence, unspecified, uncomplicated; I10 Essential (primary) hypertension; I25.10 Atherosclerotic heart disease of native coronary artery without angina pectoris; I70.0 Atherosclerosis of aorta; I25.2 Old myocardial infarction; I73.9 Peripheral vascular disease, unspecified; J31.0 Chronic rhinitis; J43.8 Other emphysema; M81.0 Age-related osteoporosis without current pathological fracture; I51.7 Cardiomegaly; Z82.49 Family history of ischemic heart disease and other diseases of the circulatory system; Z95.5 Presence of coronary angioplasty implant and graft; Z90.710 Acquired absence of both cervix and uterus; Z71.6 Tobacco abuse counseling; Z88.6 Allergy status to analgesic agent; Z88.1 Allergy status to other antibiotic agents; Z88.2 Allergy status to sulfonamides; Z88.8 Allergy status to other drugs, medicaments and biological substances
CPT/HCPCS: 36415; 71046; 78452; 80048; 80053; 81001; 82550; 82607; 82746; 83540; 83550; 83735; 83880; 84443; 84484; 85025; 85379; 87641; 93005; 93017; 94640; 96374; 96375; 96376; A9500; J0360; J2785; J7613

== ENCOUNTER → 2018-03-25 | Outpatient (CLI) | payer MEDICARE, OTHER ==
[~2018-03-25] MED LIST changes: +ALBU8.5H8 INH; +ASPI-630 PO; +HYDR-2868 PO; +ISOS30TA4 PO
[2018-03-25 18:19] LABS: BASO # 0.1 x10^3/uL (0.0-0.2); BASO % 1 % (0-3); EOS # 0.1 x10^3/uL (0.0-0.7); EOS % 2 % (0-3); HEMATOCRIT 41.2 % (36.0-47.0); HEMOGLOBIN 14.3 g/dL (12.0-15.5); LYMPH # 2.7 x10^3/uL (1.0-4.8); LYMPH % 31 % (24-48); MEAN CORPUSCULAR HEMOGLOBIN 32 pg (25-35); MEAN CORPUSCULAR HGB CONC 35 g/dL (31-37); MEAN CORPUSCULAR VOLUME 93 fL (79-100); MONO # 0.7 x10^3/uL (0.0-1.1); MONO % 8 % (0-9); NEUT # 5.1 x10^3uL (1.8-7.7); NEUT % 58 % (31-73); PLATELET COUNT 249 x10^3/uL (140-400); RED BLOOD COUNT 4.45 x10^6/uL (3.50-5.40); RED CELL DISTRIBUTION WIDTH 14.3 % (11.5-14.5); WHITE BLOOD COUNT 8.8 x10^3/uL (4.0-11.0)
[2018-03-25 18:32] LABS: ALBUMIN 3.6 g/dL (3.4-5.0); CALCIUM 9.1 mg/dL (8.5-10.1); CREATININE 1.3 mg/dL (0.6-1.0); GFR 40.3; PHOSPHORUS 3.2 mg/dL (2.6-4.7); POTASSIUM 4.1 mmol/L (3.5-5.1)
[2018-03-26 05:12] LABS: CALCIUM PTH 9.4 mg/dL (8.7-10.3); CREATININE PTH 1.17 mg/dL (0.57-1.00); PTH INTACT 56 pg/mL (15-65)
== END | disposition home or self-care (01) ==
LOC: LAB 17:55
PROVIDERS: ATTEND Internal Medicine Nephrology
DX: I12.9 Hypertensive chronic kidney disease with stage 1 through stage 4 chronic kidney disease, or unspecified chronic kidney disease (principal); N18.3 Chronic kidney disease, stage 3 (moderate); E78.5 Hyperlipidemia, unspecified; E78.00 Pure hypercholesterolemia, unspecified; E03.9 Hypothyroidism, unspecified; J44.9 Chronic obstructive pulmonary disease, unspecified; Z95.5 Presence of coronary angioplasty implant and graft; Z68.25 Body mass index [BMI] 25.0-25.9, adult; Z90.710 Acquired absence of both cervix and uterus; Z88.2 Allergy status to sulfonamides; Z88.1 Allergy status to other antibiotic agents; Z88.8 Allergy status to other drugs, medicaments and biological substances; Z88.5 Allergy status to narcotic agent; Z88.6 Allergy status to analgesic agent; Z82.49 Family history of ischemic heart disease and other diseases of the circulatory system
CPT/HCPCS: 36415; 80069; 83970; 85025

== ENCOUNTER → 2018-04-22 | Outpatient (CLI) | payer MEDICARE, OTHER | END | disposition home or self-care (01) | LOC: LAB 17:52 | PROVIDERS: ATTEND Internal Medicine Nephrology | DX: I12.9 Hypertensive chronic kidney disease with stage 1 through stage 4 chronic kidney disease, or unspecified chronic kidney disease (principal); N18.3 Chronic kidney disease, stage 3 (moderate); E87.1 Hypo-osmolality and hyponatremia; Z71.6 Tobacco abuse counseling; Z68.26 Body mass index [BMI] 26.0-26.9, adult | CPT/HCPCS: 36415; 84295 ==

== ENCOUNTER 2018-05-16 22:15 | Emergency (ER) | payer MEDICARE, OTHER ==
[~2018-05-16] VITALS: Ht 165.1 cm; Wt 65.8 kg
[2018-05-16] MEDS ORDERED: ACETAMINOPHEN/CODEINE 300/30MG TABLET PO ONE (23:00)
[2018-05-17] MEDS ORDERED: ACET-704 PO (00:08)
[2018-05-17] MEDS ORDERED: NAPR-683 PO (00:08)
--- NOTE | 2018-05-17 00:12 | PHYS DOC ---
Past History Past Medical History: Heart Disease, Hypertension, [place], Other Past Surgical History: Other Additional Smoking Information: 1 PPD Alcohol Use: None Drug Use: None Adult General Chief Complaint Chief Complaint: ANKLE PROBLEM [facility] HPI Patient is a 73-year-old female who presents with complaint of pain in injury to her left ankle after she missed a step while going down stairs. She states that she landed awkwardly on that left ankle and felt a twinge of pain. She states that since that time she has not been able to bear weight on the ankle. She states the injury occurred about 5:20 PM today. She denies any other injuries and had no loss of consciousness. She rates the pain at an 8 out of 10. Review of Systems Review of Systems Constitutional: Denies fever or chills [] Respiratory: Denies cough or shortness of breath [] Cardiovascular: No additional information not addressed in HPI [] Musculoskeletal: Complains of left ankle pain [] Integument: Denies rash or skin lesions [] Current Medications Current Medications Current Medications Medications (Trade) Dose Ordered Sig/Anita Start Time Stop Time Status Last Admin Dose Admin Acetaminophen/ Codeine Phosphate (Tylenol #3) 2 tab 1X ONCE 05/16/18 23:00 05/16/18 23:01 DC 05/16/18 22:52 2 TAB Allergies Allergies Allergies Coded Allergies Type Severity Reaction Last Updated Verified Sulfa (Sulfonamide Antibiotics) Allergy Intermediate 05/07/15 No sulfamethoxazole Allergy Intermediate 05/07/15 No trimethoprim Allergy Intermediate 05/07/15 No hydrocodone Allergy Mild vomiting 05/07/15 No I S O L A T I O N *CONTACT* Allergy Unknown 12/23/17 Yes Physical Exam Physical Exam Constitutional: Well developed, well nourished, no acute distress, non-toxic appearance. [] HENT: Normocephalic, atraumatic. [] Cardiovascular:Heart rate regular rhythm [] Lungs & Thorax: Bilateral breath sounds clear to auscultation [] Extremities: Left ankle demonstrates soft tissue swelling and tenderness to palpation around the lateral malleolus. No obvious deformity is noted. Patient unable to bear weight on exam. [] Neurologic: Alert and oriented X 3. [] Current Patient Data Vital Signs Vital Signs Date Time Temp Pulse Resp B/P (MAP) Pulse Ox O2 Delivery O2 Flow Rate FiO2 05/16/18 22:52 20 99 Room Air 05/16/18 22:29 98.1 92 EKG EKG [] Radiology/Procedures Radiology/Procedures [] Impressions: Left ankle films demonstrate lucency through the distal portion of lateral malleolus concerning for nondisplaced fracture. Of note, this is area of greatest tenderness on ankle. Course & Med Decision Making Course & Med Decision Making Pertinent Labs and Imaging studies reviewed. (See chart for details) Patient placed in left posterior OCL splint with stirrup by ER nurse. Good fit and alignment with excellent capillary refill is noted post splinting. Dragon Disclaimer Dragon Disclaimer This electronic medical record was generated, in whole or in part, using a voice recognition dictation system. Departure Departure: Impression: Primary Impression: Fx lateral malleolus-closed Condition: STABLE Referrals: CIRO AUSTIN MD (PCP) HARIS VALDEZ MD Patient Instructions: Ankle Fracture Additional Instructions: Call in the morning to schedule appointment with orthopedic surgeon in the next week. Scripts Naproxen (NAPROSYN) 500 Mg Tablet 1 TAB PO BID PRN for PAIN, #20 TAB Prov: CARL GEE Jr. DO 05/17/18 Acetaminophen With Codeine (TYLENOL WITH CODEINE #3 TABLET) 1 Each Tablet 1-2 TAB PO Q6HRS PRN for PAIN, #16 TAB Prov: CARL GEE Jr. DO 05/17/18 Problem Qualifiers Primary Impression: Fx lateral malleolus-closed Encounter type: initial encounter Fracture alignment: nondisplaced Laterality: left Qualified Codes: S82.65XA - Nondisplaced fracture of lateral malleolus of left fibula, initial encounter for closed fracture CARL GEE Jr. DO May 17, 2018 00:12
[2018-05-17 00:30] VITALS: BP 190/82
--- NOTE | 2018-05-17 08:03 | RAD ---
Examination: ANKLE LEFT 3V History: Left ankle injury on stairs, severe pain and swelling Comparison/Correlation: None Findings: Three-view left ankle x-ray exam was performed. Soft tissue swelling about the lateral malleolus is present. Subtle cortical defect on the frontal view at the lateral malleolar inferior aspect is present. Ankle joint mortise is unremarkable. No bony destruction. Impression: Nondisplaced lateral malleolar fracture and soft tissue swelling. Electronically signed by: Clayton Milton MD (05/17/2018 8:00 AM) [facility]
== END 2018-05-17 00:36 | disposition home or self-care (01) ==
LOC: ER 22:15
DX: S82.65XA Nondisplaced fracture of lateral malleolus of left fibula, initial encounter for closed fracture (principal); I11.9 Hypertensive heart disease without heart failure; I25.2 Old myocardial infarction; F17.210 Nicotine dependence, cigarettes, uncomplicated; Z88.2 Allergy status to sulfonamides; Z88.1 Allergy status to other antibiotic agents; Z88.5 Allergy status to narcotic agent; Z91.041 Radiographic dye allergy status; W10.8XXA Fall (on) (from) other stairs and steps, initial encounter; Y93.89 Activity, other specified; Y92.89 Other specified places as the place of occurrence of the external cause; Y99.8 Other external cause status
CPT/HCPCS: 29515; 73610; 99284

== ENCOUNTER 2018-09-28 20:58 | Emergency (ER) | payer MEDICARE, OTHER ==
[~2018-09-28] VITALS: Ht 165.1 cm; Wt 71.0 kg
[~2018-09-28 20:58] MED LIST changes: +ACET-704 PO; -ALBU18HF IH; +ALBU2.5V8 IH; +ALBU2.5V8 INH; -ALBU8.5H8 INH; +NAPR-683 PO
[2018-09-28] MEDS: ASPIRIN 81 MG TAB.CHEW PO ONE (21:19)
[2018-09-28 21:25] LABS: BASO # 0.1 x10^3/uL (0.0-0.2); BASO % 1 % (0-3); EOS # 0.2 x10^3/uL (0.0-0.7); EOS % 2 % (0-3); HEMATOCRIT 45.6 % (36.0-47.0); HEMOGLOBIN 15.4 g/dL (12.0-15.5); LYMPH # 2.8 x10^3/uL (1.0-4.8); LYMPH % 29 % (24-48); MEAN CORPUSCULAR HEMOGLOBIN 31 pg (25-35); MEAN CORPUSCULAR HGB CONC 34 g/dL (31-37); MEAN CORPUSCULAR VOLUME 92 fL (79-100); MONO # 0.8 x10^3/uL (0.0-1.1); MONO % 8 % (0-9); NEUT # 5.8 x10^3uL (1.8-7.7); NEUT % 60 % (31-73); PLATELET COUNT 269 x10^3/uL (140-400); RED BLOOD COUNT 4.95 x10^6/uL (3.50-5.40); RED CELL DISTRIBUTION WIDTH 14.5 % (11.5-14.5); WHITE BLOOD COUNT 9.7 x10^3/uL (4.0-11.0)
[2018-09-28 21:41] LABS: ALBUMIN/GLOBULIN RATIO 1.3 (1.0-1.7); CALCIUM 9.8 mg/dL (8.5-10.1); CREATININE 1.4 mg/dL (0.6-1.0); TOTAL BILIRUBIN 0.2 mg/dL (0.2-1.0); TOTAL PROTEIN 7.2 g/dL (6.4-8.2)
--- NOTE | 2018-09-28 21:59 | PHYS DOC ---
Past History Past Medical History: Heart Disease, Hypertension, [place], Other Past Surgical History: Other Alcohol Use: None Drug Use: None Adult General Chief Complaint Chief Complaint: CHEST PAIN HPI HPI 73 year old female presents with chest pain. The patient tells me that she had mid scapular pain last night that was severe 8 out of 10. She stated not to come to the emergency room. It did seem to subside. Today, the patient has had additional episodes of chest tightness that are 6 out of 10. She denies shortness of breath or diaphoresis. The patient has a cardiac history with previous heart attack and at least one stent. This was years ago. Her last stress test was a year ago. She denies fever or chills. She takes a baby aspirin daily. Review of Systems Review of Systems Constitutional: Denies fever or chills [] Eyes: Denies change in visual acuity, redness, or eye pain [] HENT: Denies nasal congestion or sore throat [] Respiratory: Denies cough or shortness of breath [] Cardiovascular: No additional information not addressed in HPI [] GI: Denies abdominal pain, nausea, vomiting, bloody stools or diarrhea [] : Denies dysuria or hematuria [] Musculoskeletal: Denies back pain or joint pain [] Integument: Denies rash or skin lesions [] Neurologic: Denies headache, focal weakness or sensory changes [] Endocrine: Denies polyuria or polydipsia [] All other systems were reviewed and found to be within normal limits, except as documented in this note. Current Medications Current Medications Current Medications Medications (Trade) Dose Ordered Sig/[facility] Start Time Stop Time Status Last Admin Dose Admin Aspirin (Children'S Aspirin) 324 mg 1X ONCE 09/28/18 21:15 09/28/18 21:16 DC 09/28/18 21:19 324 MG Allergies Allergies Allergies Coded Allergies Type Severity Reaction Last Updated Verified Sulfa (Sulfonamide Antibiotics) Allergy Intermediate 05/07/15 No sulfamethoxazole Allergy Intermediate 05/07/15 No trimethoprim Allergy Intermediate 05/07/15 No hydrocodone Allergy Mild vomiting 05/07/15 No I S O L A T I O N *CONTACT* Allergy Unknown 12/23/17 Yes Physical Exam Physical Exam Constitutional: Well developed, well nourished, no acute distress, non-toxic appearance. [] HENT: Normocephalic, atraumatic, bilateral external ears normal, oropharynx moist, no oral exudates, nose normal. [] Eyes: PERRLA, EOMI, conjunctiva normal, no discharge. [] Neck: Normal range of motion, no tenderness, supple, no stridor. [] Cardiovascular:Heart rate regular rhythm, no murmur [] Lungs & Thorax: Bilateral breath sounds decreased.[] Abdomen: Bowel sounds normal, soft, no tenderness, no masses, no pulsatile masses. [] Skin: Warm, dry, no erythema, no rash. [] Back: No tenderness, no CVA tenderness. [] Extremities: No tenderness, no cyanosis, no clubbing, ROM intact, no edema. [] Neurologic: Alert and oriented X 3, normal motor function, normal sensory function, no focal deficits noted. [] Psychologic: Affect normal, judgement normal, mood normal. [] Current Patient Data Vital Signs Vital Signs Date Time Temp Pulse Resp B/P (MAP) Pulse Ox O2 Delivery O2 Flow Rate FiO2 09/28/18 21:09 98.3 87 18 99 Room Air Lab Results Laboratory Tests Test 09/28/18 21:11 White Blood Count 9.7 x10^3/uL (4.0-11.0) Red Blood Count 4.95 x10^6/uL (3.50-5.40) Hemoglobin 15.4 g/dL (12.0-15.5) Hematocrit 45.6 % (36.0-47.0) Mean Corpuscular Volume 92 fL (79-100) Mean Corpuscular Hemoglobin 31 pg (25-35) Mean Corpuscular Hemoglobin Concent 34 g/dL (31-37) Red Cell Distribution Width 14.5 % (11.5-14.5) Platelet Count 269 x10^3/uL (140-400) Neutrophils (%) (Auto) 60 % (31-73) Lymphocytes (%) (Auto) 29 % (24-48) Monocytes (%) (Auto) 8 % (0-9) Eosinophils (%) (Auto) 2 % (0-3) Basophils (%) (Auto) 1 % (0-3) Neutrophils # (Auto) 5.8 x10^3uL (1.8-7.7) Lymphocytes # (Auto) 2.8 x10^3/uL (1.0-4.8) Monocytes # (Auto) 0.8 x10^3/uL (0.0-1.1) Eosinophils # (Auto) 0.2 x10^3/uL (0.0-0.7) Basophils # (Auto) 0.1 x10^3/uL (0.0-0.2) Sodium Level 136 mmol/L (136-145) Potassium Level 4.0 mmol/L (3.5-5.1) Chloride Level 99 mmol/L (98-107) Carbon Dioxide Level 28 mmol/L (21-32) Anion Gap 9 (6-14) Blood Urea Nitrogen 19 mg/dL (7-20) Creatinine 1.4 mg/dL (0.6-1.0) H Estimated GFR (Cockcroft-Gault) 37.0 BUN/Creatinine Ratio 14 (6-20) Glucose Level 171 mg/dL (70-99) H Calcium Level 9.8 mg/dL (8.5-10.1) Total Bilirubin 0.2 mg/dL (0.2-1.0) Aspartate Amino Transferase (AST) 14 U/L (15-37) L Alanine Aminotransferase (ALT) 19 U/L (14-59) Alkaline Phosphatase 113 U/L (46-116) Troponin I Quantitative 0.285 ng/mL (0-0.055) H Total Protein 7.2 g/dL (6.4-8.2) Albumin 4.0 g/dL (3.4-5.0) Albumin/Globulin Ratio 1.3 (1.0-1.7) EKG EKG Sinus rhythm, rate 87, normal axis, downsloping ST segments in lead 2, V5, V6. No ST elevations.[] Radiology/Procedures Radiology/Procedures [] Impressions: Rhythm interpretation: No acute cardiopulmonary process. Course & Med Decision Making Course & Med Decision Making Pertinent Labs and Imaging studies reviewed. (See chart for details) The patient's EKG does show some downsloping ST segments in 2, V5 and V6. No elevations. She was given 324 of aspirin on arrival. Her chest x-ray is unremarkable. Her troponin is significant for 0.285. This is higher than her last 3 previous troponins and she has come to the hospital. She did have a troponin of 17 in 2015. The patient's HEART score is 7. I discussed the patient with Dr. Pardo, cardiology and he has recommended the patient be transferred to [facility]. He also requested 25 mg of metoprolol tartrate by mouth, and nitro drip, and heparin protocol. We will start all these in the ED. I discussed the patient with Dr. Vee, the hospitalist and she has accepted the patient for admission. Greater than 35 minutes of critical care time was spent on this patient exclusive of other billable procedures. [] Dragon Disclaimer Dragon Disclaimer This electronic medical record was generated, in whole or in part, using a voice recognition dictation system. Departure Departure: Impression: Primary Impression: Chest pain Additional Impression: NSTEMI (non-ST elevated myocardial infarction) Disposition: 02 XFER SHT-TRM HOSP Condition: GUARDED Referrals: CIRO AUSTIN MD (PCP) Problem Qualifiers Primary Impression: Chest pain Chest pain type: chest pain due to myocardial ischemia Ischemic chest pain type: unstable angina pectoris Qualified Codes: I20.0 - Unstable angina SAPNA WHITLEY DO Sep 28, 2018 21:59
[2018-09-28] MEDS: NITROGLYCERIN SUBLINGUAL 0.4 MG BOTTLE OF 25. SL ONE (22:00)
[2018-09-28] MEDS ORDERED: HEPARIN for IV BOLUS 10,000 UNIT/10 ML VIAL. IV PRN ×2 (22:15)
[2018-09-28] MEDS: METOPROLOL TART IMMED RELEASE 25 MG TABLET PO ONE (22:22)
[2018-09-28] MEDS: HEPARIN for IV BOLUS 10,000 UNIT/10 ML VIAL. IV ONE (22:28)
[2018-09-28] MEDS: NITROGLYCERIN PREMIX 250 ML IV ONE (22:32)
[2018-09-28] MEDS: HEPARIN 25,000UTS/500ML PREMIX 500 ML IV PRN (22:41)
[2018-09-29 00:16] VITALS: BP 133/70
--- NOTE | 2018-09-29 05:02 | RAD ---
AP portable chest radiograph 09/28/2018 Clinical History: Chest pain. An AP erect portable digital radiograph of the chest was obtained. Comparison study is dated 12/21/2017. The cardiac silhouette is mildly enlarged. Atherosclerotic calcification of the thoracic aorta is seen. No acute pulmonary infiltrate is noted. A 1 cm calcified granuloma seen involving the right upper lobe. No pneumothorax or pleural effusion is seen. Degenerative changes are seen involving the thoracic spine. IMPRESSION: No acute abnormality is seen. Electronically signed by: Nigel Duron MD (09/29/2018 4:59 AM) [facility]
--- NOTE | 2018-09-29 09:16 | EKG ---
[address] [address] Test Date: 2018-09-28 Test Time: 21:25:20 Pat Name: KERMIT SALAMANCA Department: Room: Gender: F [employer]: : 1945 Requested By: SAPNA WHITLEY Order Number: [id number] Reading MD: Sterling Nation MD Measurements Intervals [place] Rate: 87 P: 56 SC: 180 QRS: 6 QRSD: 106 T: -174 QT: 336 QTc: 410 Interpretive Statements SINUS RHYTHM VENTRICULAR PREMATURE COMPLEX(ES) CONSIDER LEFT VENTRICULAR HYPERTROPHY ST & T ABNORMALITY, CONSIDER ANTEROLATERAL ISCHEMIA OR LEFT VENTRICULAR STRAIN INFEROLATERAL ISCHEMIA OR LEFT VENTRICULAR STRAIN ABNORMAL ECG Electronically Signed On 10-02-2018 21:59:46 CDT by Sterling Nation MD
[2018-12-05] MEDS ORDERED: MONT10TA9 PO (12:22)
[2018-12-05] MEDS ORDERED: LIPITOR80 MG PO (12:22)
[2018-12-05] MEDS ORDERED: LEVO75TA5 PO (12:22)
[2018-12-05] MEDS ORDERED: TRAZ-120 PO (12:22)
== END 2018-09-29 00:34 | disposition short-term general hospital (02) ==
LOC: ER 20:58
DX: I21.4 Non-ST elevation (NSTEMI) myocardial infarction (principal); I20.0 Unstable angina; I11.9 Hypertensive heart disease without heart failure; I25.2 Old myocardial infarction; Z79.82 Long term (current) use of aspirin; Z88.2 Allergy status to sulfonamides; Z88.1 Allergy status to other antibiotic agents; Z88.5 Allergy status to narcotic agent; Z91.041 Radiographic dye allergy status
CPT/HCPCS: 36415; 71045; 80053; 84484; 85025; 85610; 85730; 93005; 96365; 96367; 96368; 96376; J1644; J3490; 99291-25

== ENCOUNTER → 2019-02-09 | Outpatient (CLI) | payer MEDICARE, OTHER ==
[~2019-02-09] MED LIST changes: +LEVO75TA5 PO; +LIPITOR80 MG PO; +MONT10TA80 PO; +TRAZ-120 PO
--- NOTE | 2019-02-09 14:24 | CARD ---
MR#: [id number] Date of Study: 02/09/2019 Ordering Physician: DIANA DÍAZ, Referring Physician: DIANA DÍAZ, Tech: Luna An APPROVED REPORT EXAM: Two-dimensional and M-mode echocardiogram with Doppler and color Doppler. Other Information Quality : AverageHR: 68bpm INDICATION Cardiac Disease: CAD Surgery/Intervention Two Stents RISK FACTORS Hypertension Hyperlipidemia Smoking 2D DIMENSIONS Left Atrium(2D)4.0 (1.6-4.0cm)IVSd0.9 (0.7-1.1cm) Aortic Root(2D)2.9 (2.0-3.7cm)LVDd5.9 (3.9-5.9cm) LVOT Diameter2.0 (1.8-2.4cm)PWd0.9 (0.7-1.1cm) LVDs5.0 (2.5-4.0cm)FS (%) 15.8 % SV57.3 mlLVEF(%)32.7 (>50%) Aortic Valve AoV Peak Eran.143.4cm/sAoV VTI30.4cm AO Peak GR.8.2mmHgLVOT Peak Eran.126.9cm/s LVOT VTI 25.38cmAO Mean GR.4mmHg LILY (VMAX)2.01cy5TCB (VTI)2.50cm2 Mitral Valve MV E Tlwhzhqm41.7cm/sMV DECEL JPNI847wy MV A Qaiestvw95.3cm/sE/A Ratio0.6 Pulmonary Valve PV Peak Skhpaoof061.3cm/sPV Peak Grad.4mmHg Tricuspid Valve TR P. Gaqkdumd237ls/sRAP PBUWFFGA8duPe TR Peak Gr.35nsOvMHME25fiJw Pulmonary Vein S1 Ulszzeit09.1cm/sD2 Exglzdcl06.9cm/s LEFT VENTRICLE The Left Ventricle is moderately dilated. There is normal left ventricular wall thickness. The left v entricular systolic function is mildly decreased. EF 40-45% There is slight global hypokinesis of the left ventricle. The proximal to mid septum and inferior wall are severely hypokinesis. Transmitral D oppler flow pattern is Grade I-abnormal relaxation pattern. RIGHT VENTRICLE The right ventricle is normal size. The right ventricle is borderline hypertrophied. The right ventri cular systolic function is normal. ATRIA The left atrium size is normal. The right atrium size is normal. The interatrial septum is intact wit h no evidence for an atrial septal defect or patent foramen ovale as noted on 2-D or Doppler imaging. AORTIC VALVE The aortic valve is not well visualized. Doppler and Color Flow revealed trace to mild aortic regurgi tation. There is no significant aortic valvular stenosis. MITRAL VALVE The mitral valve is normal in structure and function. There is no evidence of mitral valve prolapse. There is no mitral valve stenosis. Doppler and Color-flow revealed trace mitral regurgitation. TRICUSPID VALVE The tricuspid valve is not well visualized. Doppler and Color Flow revealed no tricuspid valve regurg itation noted with an estimated PAP of 21 mmHg. There is no tricuspid valve stenosis. PULMONIC VALVE The pulmonic valve is not well visualized. Doppler and Color Flow revealed no pulmonic valvular regur gitation. There is no pulmonic valvular stenosis. GREAT VESSELS The aortic root is normal in size. The IVC is normal in size and collapses >50% with inspiration. PERICARDIAL EFFUSION There is a trace circumferential pericardial effusion. Critical Notification Critical Value: No <Conclusion> The left ventricular systolic function is mildly decreased. EF 40-45% There is slight global hypokinesis of the left ventricle. The proximal to mid septum and inferior wal l are severely hypokinesis. Signed by : Sterling Nation, Electronically Approved : 02/09/2019 14:24:03
== END | disposition home or self-care (01) ==
LOC: ECHO 12:46
PROVIDERS: ATTEND Internal Medicine Cardiovascular Disease
DX: I35.1 Nonrheumatic aortic (valve) insufficiency (principal); I31.3 Pericardial effusion (noninflammatory); I25.10 Atherosclerotic heart disease of native coronary artery without angina pectoris; I10 Essential (primary) hypertension; E78.5 Hyperlipidemia, unspecified; Z87.891 Personal history of nicotine dependence
CPT/HCPCS: 93306

== ENCOUNTER 2019-03-02 20:50 | Emergency (ER) | payer MEDICARE, OTHER ==
[~2019-03-02] VITALS: Ht 162.6 cm; Wt 71.0 kg
[2019-03-02] MEDS ORDERED: methylPREDNISolone SOD SUCC PF 125 MG/2 ML VIAL. IV ONE (22:00)
[2019-03-02] MEDS ORDERED: DOXYCYCLINE HYCLATE 100 MG TABLET PO ONE (22:00)
[2019-03-02] MEDS ORDERED: IPRATRPIUM/ALBUTEROL 0.5/2.5MG 3 ML NEBU. NEB ONE (22:00)
--- NOTE | 2019-03-02 22:11 | PHYS DOC ---
Past History Past Medical History: Heart Disease, Hypertension, PR, Other Past Surgical History: Other Alcohol Use: None Drug Use: None Adult General Chief Complaint Chief Complaint: SHORTNESS OF BREATH HPI HPI Patient is a 73-year-old female who is presenting with shortness of breath. She's been coughing it feels like she is short of breath because it is hard to get the mucus out. She does not know what color it is because she's been unable to cough it up no fever that she knows of denies any chest pain she said she went to her doctor the other day who gave her steroid medication however no antibiotics were given and she thinks she needs those. She is not on any diuretic at all she tells me she's been eating and drinking just fine Review of Systems Review of Systems Constitutional: Denies fever or chills [] Eyes: Denies change in visual acuity, redness, or eye pain [] Cardiovascular: No additional information not addressed in HPI [] GI: Denies abdominal pain, nausea, vomiting, bloody stools or diarrhea [] : Denies dysuria or hematuria [] \ Neurologic: Denies headache, focal weakness or sensory changes [] \ All other systems were reviewed and found to be within normal limits, except as documented in this note. Current Medications Current Medications Current Medications Medications (Trade) Dose Ordered Sig/Anita Start Time Stop Time Status Last Admin Dose Admin Albuterol/ Ipratropium (Duoneb) 3 ml 1X ONCE 03/02/19 22:00 03/02/19 22:01 DC 03/02/19 22:06 3 ML Doxycycline Hyclate (Vibra-Tab) 100 mg 1X ONCE 03/02/19 22:00 03/02/19 22:01 DC 03/02/19 22:06 100 MG Methylprednisolone Sodium Succinate (SOLU-Medrol 125MG VIAL) 125 mg 1X ONCE 03/02/19 22:00 03/02/19 22:01 DC 03/02/19 22:06 125 MG Allergies Allergies Allergies Coded Allergies Type Severity Reaction Last Updated Verified Sulfa (Sulfonamide Antibiotics) Allergy Intermediate 05/07/15 No sulfamethoxazole Allergy Intermediate 05/07/15 No trimethoprim Allergy Intermediate 05/07/15 No hydrocodone Allergy Mild vomiting 05/07/15 No Physical Exam Physical Exam Constitutional: Well developed, chronically ill-appearing HENT: Normocephalic, atraumatic, bilateral external ears normal, oropharynx moist, no oral exudates, nose normal. [] Eyes: PERRLA, EOMI, conjunctiva normal, no discharge. [] Neck: Normal range of motion, no tenderness, supple, no stridor. [] Cardiovascular:Heart rate regular rhythm, no murmur [] Lungs & Thorax: Diffuse wheezing noted bilaterally this was improved somewhat after nebs patient was able to walk to the bathroom in the emergency room without significant increase in respiratory effort Abdomen: Bowel sounds normal, soft, no tenderness, no masses, no pulsatile masses. [] Skin: Warm, dry, no erythema, no rash. [] Back: No tenderness, no CVA tenderness. [] Extremities: No tenderness, no cyanosis, no clubbing, ROM intact, no edema. [] Neurologic: Alert and oriented X 3, normal motor function, normal sensory function, no focal deficits noted. [] Psychologic: Affect normal, judgement normal, mood normal. [] Current Patient Data Vital Signs Vital Signs Date Time Temp Pulse Resp B/P (MAP) Pulse Ox O2 Delivery O2 Flow Rate FiO2 03/02/19 22:06 79 20 175/95 (121) 97 Room Air 03/02/19 21:09 98.7 Lab Results emperature (Fahrenheit): * 98.7 degrees F (97.6-99.5) Patient Temperature * 98.7 degrees F (97.5-99.5) Temperature Source * Oral Blood Pressure Systolic * 184 mm Hg (100-140) H Blood Pressure Diastolic * 107 mm Hg (60-100) H Blood Pressure Mean * 132 mm Hg Blood Pressure Location * Right Arm Blood Pressure Source * Automatic Cuff Pulse Rate * 92 beats per minute (60-90) H Pulse Assessment Method * Monitor Respiratory Rate * 24 breaths per minute (12-24) Oxygen Delivery Method * Room Air Bedside Pulse Oximetry * 96 % Treatment Prior to Arrival EKG EKG []Normal sinus rhythm rate of 78 no acute ischemic changes noted interpreted by me the time of encounter. There is some BORDERLINE ST DEPRESWSION INFERIOR this is very similar to the last EKG in our system dated September Radiology/Procedures Radiology/Procedures [] Impressions: Chest x-ray my interpretation was negative acute no obvious pneumonia or CHF was noted Course & Med Decision Making Course & Med Decision Making Pertinent Labs and Imaging studies reviewed. (See chart for details) []73-year-old female with known COPD as well as CAD status post stent or stool congestive heart failure EF 40-45% with grade 1 diastolic dysfunction who is presenting with shortness of breath coughing unable to get sputum up. Did have wheezing on examination chest x-ray was pretty clear I think this is COPD tropon in negative BNP is elevated but has been in the past that is not really not helpful. noted the sodium of 124 patient denies any diuretic therapy. PERHAPS is related to congestive heart failure. After neb she is feeling much better nevertheless I talked with the patient about the possibility of admission. I was very open to that option and actually preferred it however she said she was feeling much better and she really did not want to be admitted she really wanted to go home. As such we give her prescript ion for antibiotics as well as prednisone some more prednisone she says she only has one day left. I also asked her to watch her fluid intake and get her sodium level checked again in the next 3-5 days she says she will do that return precautions discussed in detail asked her to come back anytime should she be feeling worse rather than better Dragon Disclaimer Dragon Disclaimer This electronic medical record was generated, in whole or in part, using a voice recognition dictation system. Departure Departure: Impression: Primary Impression: Chronic obstructive pulmonary disease with (acute) exacerbation Additional Impression: Hyponatremia Disposition: 01 HOME, SELF-CARE Condition: STABLE Referrals: CIRO AUSTIN MD (PCP) Scripts Prednisone (PREDNISONE) 50 Mg Tablet 1 TAB PO DAILY for COPD, #5 TAB Prov: LISA JO MD 03/02/19 Doxycycline Hyclate (DOXYCYCLINE HYCLATE) 100 Mg Tablet 1 TAB PO BID for COUGH, #20 TAB Prov: LISA JO MD 03/02/19 Problem Qualifiers LISA JO MD Mar 02, 2019 22:11
[2019-03-02 22:14] LABS: BASO % 0 % (0-3); EOS % 0 % (0-3); HEMATOCRIT 44.6 % (36.0-47.0); HEMOGLOBIN 15.1 g/dL (12.0-15.5); LYMPH # 2.1 x10^3/uL (1.0-4.8); LYMPH % 20 % (24-48); MEAN CORPUSCULAR HEMOGLOBIN 30 pg (25-35); MEAN CORPUSCULAR HGB CONC 34 g/dL (31-37); MEAN CORPUSCULAR VOLUME 90 fL (79-100); MONO # 1.1 x10^3/uL (0.0-1.1); MONO % 10 % (0-9); NEUT # 7.5 x10^3uL (1.8-7.7); NEUT % 69 % (31-73); PLATELET COUNT 305 x10^3/uL (140-400); RED BLOOD COUNT 4.97 x10^6/uL (3.50-5.40); RED CELL DISTRIBUTION WIDTH 15.3 % (11.5-14.5); WHITE BLOOD COUNT 10.9 x10^3/uL (4.0-11.0)
[2019-03-02 22:36] LABS: ALBUMIN 3.8 g/dL (3.4-5.0); ALBUMIN/GLOBULIN RATIO 1.3 (1.0-1.7); CALCIUM 9.4 mg/dL (8.5-10.1); CREATININE 1.1 mg/dL (0.6-1.0); GFR 48.8; POTASSIUM 4.7 mmol/L (3.5-5.1); TOTAL BILIRUBIN 0.3 mg/dL (0.2-1.0); TOTAL PROTEIN 6.8 g/dL (6.4-8.2)
--- NOTE | 2019-03-02 22:38 | EKG ---
[address] [address] Test Date: 2019-03-02 Test Time: 22:10:32 Pat Name: KERMIT SALAMANCA Department: Room: Gender: F Intermission Coordinator: : 1945 Requested By: LISA JO Order Number: [id number] Reading MD: Measurements Intervals [place] Rate: 78 P: 64 TN: 186 QRS: 43 QRSD: 94 T: 2 QT: 368 QTc: 423 Interpretive Statements SINUS RHYTHM ST & T ABNORMALITY, CONSIDER INFERIOR ISCHEMIA OR LEFT VENTRICULAR STRAIN ABNORMAL ECG RI6.01 No previous ECG available for comparison
[2019-03-02] MEDS ORDERED: DOXY100T PO (22:55)
[2019-03-02] MEDS ORDERED: PRED50TA PO (22:55)
--- NOTE | 2019-03-02 23:14 | RAD ---
CHEST AP ONLY INDICATION: Dyspnea, cough, congestion. COMPARISON STUDY: 09/28/2018. FINDINGS: Lungs: Normal lung volume. No pulmonary mass or consolidation. The tracheobronchial tree and hilar structures are normal. Pleura: No pleural effusion or pneumothorax. Heart and Mediastinum: The cardiomediastinal silhouette is normal. Tortuous atherosclerotic aorta. IMPRESSION: No acute cardiopulmonary process. Electronically signed by: Jose Quintanilla MD (03/02/2019 11:11 PM) [facility] [place]
[2019-03-02 23:20] VITALS: BP 179/83
== END 2019-03-02 23:20 | disposition home or self-care (01) ==
LOC: ER 20:50
DX: J44.1 Chronic obstructive pulmonary disease with (acute) exacerbation (principal); E87.1 Hypo-osmolality and hyponatremia; I11.9 Hypertensive heart disease without heart failure; I25.2 Old myocardial infarction; Z88.2 Allergy status to sulfonamides; Z88.1 Allergy status to other antibiotic agents; Z88.5 Allergy status to narcotic agent
CPT/HCPCS: 36415; 71045; 80053; 83880; 84484; 85025; 93005; 94640; 96374; 99285; J2930; J7620

== ENCOUNTER 2019-04-10 15:43 | Emergency (ER) | payer MEDICARE, OTHER ==
[~2019-04-10 15:43] MED LIST changes: +DOXY100T PO; +PRED50TA PO
[2019-04-10] MEDS ORDERED: IBUPROFEN 400 MG TABLET. PO ONE (16:50)
--- NOTE | 2019-04-10 16:56 | RAD ---
VENOUS LOWER EXTREMITY RIGHT 04/10/2019 4:15 PM Clinical Information: Right thigh pain. Comparison: None. Technique: Multiple grayscale, color Doppler, and spectral Doppler sonographic images of the lower extremity venous structures were obtained. Findings: The right common femoral, femoral, and popliteal veins exhibit normal compression, respiratory phasicity, and augmentation. No intraluminal thrombi are identified. Color Doppler flow is demonstrated in the right posterior tibial veins. Greater saphenous veins are patent at the saphenofemoral junction. Impression: 1. No evidence of deep venous thrombosis. Electronically signed by: Shae Thompson MD (04/10/2019 4:53 PM) [facility]
[2019-04-10 17:09] VITALS: BP 145/75
--- NOTE | 2019-04-10 17:38 | RAD ---
Indication: Right-sided pain TECHNIQUE: Grayscale, color Doppler and spectral waveform images of the right lower extremity arteries COMPARISON: None FINDINGS: No blood flow is seen in the BOAT ENGINES INSTALLER. Monophasic waveform in the deep femoral artery with velocity of 55 cm/s. Lack of blood flow in the entire SFA. Monophasic waveform in the popliteal artery with velocity of 30 cm/s. Monophasic waveform in the proximal SALES REPRESENTATIVE MALT [employer]QUORS with velocity of 34 cm/s. Monophasic waveform in the anterior tibial artery with velocity of 90 cm/s. Monophasic waveform in the dorsalis pedis artery with velocity of 10 cm/s. No blood flow seen in the distal SALES REPRESENTATIVE MALT [employer]QUORS most likely occluded. Peroneal artery not visualized. IMPRESSION: Arterial occlusion from BOAT ENGINES INSTALLER to distal SFA. Also occlusion of the distal posterior tibial artery. Significant atherosclerotic disease of the infrapopliteal arteries but are patent. Critical findings were identified on 04/10/2019 5:29 PM, read back and verified with Dr. Freeman on 04/10/2019 5:[address] Alden Abernathy DO. Electronically signed by: Alden Abernathy DO (04/10/2019 5:35 PM) [id number]
[2019-04-10] MEDS ORDERED: OXYC1TAB15 PO (17:49)
[2019-04-10] MEDS ORDERED: MELO7.5T29 PO (17:49)
--- NOTE | 2019-04-10 17:50 | PHYS DOC ---
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 Patient has not fallen. Increased pain with movement and walking. No trauma. No swelling. No new numbness or tingling. Patient has a history of cardiac disease, has previously been on blood thinners but was stopped from those due to internal bleeding. She is not on any NSAIDs. She denies any chest pain or palpitations. Denies any trauma, stasis, or known hypercoagulable state.[] Review of Systems Review of Systems Constitutional: Denies fever or chills [] Eyes: Denies change in visual acuity, redness, or eye pain [] HENT: Denies nasal congestion or sore throat [] Respiratory: Denies cough or shortness of breath [] Cardiovascular: No chest pain or palpitations[] GI: Denies abdominal pain, nausea, vomiting, bloody stools or diarrhea [] : Denies dysuria or hematuria [] Musculoskeletal: Denies back pain, see history of present illness[] Integument: Denies rash or skin lesions [] Neurologic: Denies headache, focal weakness or sensory changes [] Endocrine: Denies polyuria or polydipsia [] All other systems were reviewed and found to be within normal limits, except as documented in this note. Current Medications Current Medications Current Medications Medications (Trade) Dose Ordered Sig/Anita Start Time Stop Time Status Last Admin Dose Admin Ibuprofen (Motrin) 400 mg 1X ONCE 04/10/19 16:50 04/10/19 16:51 DC 04/10/19 17:13 400 MG Allergies Allergies Allergies Coded Allergies Type Severity Reaction Last Updated Verified Sulfa (Sulfonamide Antibiotics) Allergy Intermediate 05/07/15 No sulfamethoxazole Allergy Intermediate 05/07/15 No trimethoprim Allergy Intermediate 05/07/15 No hydrocodone Allergy Mild vomiting 05/07/15 No Physical Exam Physical Exam Constitutional: Well developed, well nourished, no acute distress, non-toxic appearance. [] HENT: Normocephalic, atraumatic, bilateral external ears normal, oropharynx moist, no oral exudates, nose normal. [] Eyes: PERRLA, EOMI, conjunctiva normal, no discharge. [] Neck: Normal range of motion, no tenderness, supple, no stridor. [] Cardiovascular:Heart rate regular rhythm, no murmur [] Lungs & Thorax: Bilateral breath sounds clear to auscultation [] Abdomen: Bowel sounds normal, soft, no tenderness, no masses, no pulsatile masses. Pelvis is stable in 3 planes [] Skin: Warm, dry, no erythema, no rash. [] Back: No tenderness, no CVA tenderness. [] Extremities: Right thigh has ropiness to the vastus medialis. Full active range of motion. No swelling or edema. Capillary refill is approximately 2 seconds and symmetric. No pain with axial loading of the femur or hip. She is distally neurovascularly intact. A joint above and a joined below were evaluated and were normal. The other 3 extremities show: No tenderness, no cyanosis, no clubbing, ROM intact, no edema. [] Neurologic: Alert and oriented X 3, normal motor function, normal sensory function, no focal deficits noted. [] Psychologic: Affect normal, judgement normal, mood normal. [] Current Patient Data Vital Signs Vital Signs Date Time Temp Pulse Resp B/P (MAP) Pulse Ox O2 Delivery O2 Flow Rate FiO2 04/10/19 17:09 65 18 100 Room Air EKG EKG [] Radiology/Procedures Radiology/Procedures PROCEDURE: ARTERIAL STUDY LOWER EXT RIGHT Indication: Right-sided pain TECHNIQUE: Grayscale, color Doppler and spectral waveform images of the right lower extremity arteries COMPARISON: None FINDINGS: No blood flow is seen in the RIGGING UP WORKER. Monophasic waveform in the deep femoral artery with velocity of 55 cm/s. Lack of blood flow in the entire SFA. Monophasic waveform in the popliteal artery with velocity of 30 cm/s. Monophasic waveform in the proximal IS SUPPORT ANALYST with velocity of 34 cm/s. Monophasic waveform in the anterior tibial artery with velocity of 90 cm/s. Monophasic waveform in the dorsalis pedis artery with velocity of 10 cm/s. No blood flow seen in the distal IS SUPPORT ANALYST most likely occluded. Peroneal artery not visualized. IMPRESSION: Arterial occlusion from RIGGING UP WORKER to distal SFA. Also occlusion of the distal posterior tibial artery. Significant atherosclerotic disease of the infrapopliteal arteries but are patent. PROCEDURE: VENOUS LOWER EXTREMITY RIGHT VENOUS LOWER EXTREMITY RIGHT 04/10/2019 4:15 PM Clinical Information: Right thigh pain. Comparison: None. Technique: Multiple grayscale, color Doppler, and spectral Doppler sonographic images of the lower extremity venous structures were obtained. Findings: The right common femoral, femoral, and popliteal veins exhibit normal compression, respiratory phasicity, and augmentation. No intraluminal thrombi are identified. Color Doppler flow is demonstrated in the right posterior tibial veins. Greater saphenous veins are patent at the saphenofemoral junction. Impression: 1. No evidence of deep venous thrombosis. [] Course & Med Decision Making Course & Med Decision Making Pertinent Labs and Imaging studies reviewed. (See chart for details) ED course: Patient arrived, was placed in bed, and tolerated exam well. She was transferred to and from [facility] without any complications. After the return of the imaging findings, these were discussed with the patient voiced understanding. Discussion was made with her primary care physician who will see her in walk-in clinic between 9:30 and 10 AM tomorrow. All her questions were answered. She was discharged in improved condition. Medical decision making: Patient appears to have severe atherosclerotic disease of her lower extremity. There is no evidence of acute vascular compromise, no phlegmasia cerulea dolens nor Alba Steve's, no DVT, no neurologic compromise.[] Dragon Disclaimer Dragon Disclaimer This electronic medical record was generated, in whole or in part, using a voice recognition dictation system. 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 Patient Instructions: Peripheral Vascular Disease Additional Instructions: Follow-up with Dr. AUSTIN tomorrow morning between 9:30 and 10. Apply warm compresses for 15 minutes at a time, at least 4 times a day. Take the pain medication as prescribed, as needed for pain. Return to the ER if worsening pain , weakness, or any other concerns. Scripts Oxycodone Hcl/Acetaminophen (PERCOCET 5-325 MG TABLET ) 1 Each Tablet 1 TAB PO PRN Q6HRS PRN for PAIN, #20 TAB Prov: YAYO VICENTE DO 04/10/19 Meloxicam (MELOXICAM) 7.5 Mg Tablet 7.5 MG PO DAILY for PAIN, #20 TAB Prov: YAYO VICENTE DO 04/10/19 YAYO VICENTE DO Apr 10, 2019 17:50
== END 2019-04-10 17:56 | disposition home or self-care (01) ==
LOC: ER 15:43
DX: I70.201 Unspecified atherosclerosis of native arteries of extremities, right leg (principal); E78.00 Pure hypercholesterolemia, unspecified; I10 Essential (primary) hypertension; E03.9 Hypothyroidism, unspecified; Z88.2 Allergy status to sulfonamides; Z88.1 Allergy status to other antibiotic agents; Z88.5 Allergy status to narcotic agent
CPT/HCPCS: 93923; 93971; 99284-25

== ENCOUNTER → 2019-04-27 | Outpatient (CLI) | payer MEDICARE, OTHER ==
[2019-04-10 17:09] VITALS: BP 145/75
[~2019-04-27] MED LIST changes: +MELO7.5T29 PO; +OXYC1TAB15 PO
[2019-04-27 17:51] LABS: BASO % 0 % (0-3); EOS % 0 % (0-3); HEMATOCRIT 38.1 % (36.0-47.0); HEMOGLOBIN 12.7 g/dL (12.0-15.5); LYMPH # 1.3 x10^3/uL (1.0-4.8); LYMPH % 13 % (24-48); MEAN CORPUSCULAR HEMOGLOBIN 31 pg (25-35); MEAN CORPUSCULAR HGB CONC 33 g/dL (31-37); MEAN CORPUSCULAR VOLUME 92 fL (79-100); MONO # 0.7 x10^3/uL (0.0-1.1); MONO % 7 % (0-9); NEUT # 7.6 x10^3uL (1.8-7.7); NEUT % 79 % (31-73); PLATELET COUNT 349 x10^3/uL (140-400); RED BLOOD COUNT 4.13 x10^6/uL (3.50-5.40); RED CELL DISTRIBUTION WIDTH 16.1 % (11.5-14.5); WHITE BLOOD COUNT 9.5 x10^3/uL (4.0-11.0)
[2019-04-27 18:03] LABS: ALBUMIN 3.3 g/dL (3.4-5.0); CALCIUM 8.9 mg/dL (8.5-10.1); CREATININE 1.2 mg/dL (0.6-1.0); PHOSPHORUS 3.1 mg/dL (2.6-4.7); POTASSIUM 4.9 mmol/L (3.5-5.1)
[2019-04-29 03:10] LABS: CALCIUM PTH 9.7 mg/dL (8.7-10.3); CREATININE PTH 0.82 mg/dL (0.57-1.00); PTH INTACT 75 pg/mL (15-65)
== END | disposition home or self-care (01) ==
LOC: LAB 17:08
PROVIDERS: ATTEND Internal Medicine Nephrology
DX: I12.9 Hypertensive chronic kidney disease with stage 1 through stage 4 chronic kidney disease, or unspecified chronic kidney disease (principal); N18.3 Chronic kidney disease, stage 3 (moderate); Z68.25 Body mass index [BMI] 25.0-25.9, adult
CPT/HCPCS: 36415; 80069; 83970; 85025

== ENCOUNTER 2019-05-08 01:15 | Inpatient (IN) | payer MEDICARE, OTHER ==
[~2019-05-08] VITALS: Ht 162.6 cm; Wt 65.4 kg
--- NOTE | 2019-05-08 01:23 | ED.ADGEN ---
Past History Past Medical History: Anemia, Angina, Anxiety, Arthritis, Arrhythmia, Bronchitis, CAD, CHF, COPD, DVT, High Cholesterol, Hypertension, Hypothyroid, Renal Disease, Other Past Surgical History: Cancer Surgery, Hysterectomy, Other Additional Past Surgical Histo: brain sx on 03/15 for benign brain tumor frontal lobe Smoking: Cigarettes Alcohol Use: None Drug Use: None Adult General Chief Complaint Chief Complaint ".. I ve gotten where I can't breath .. and a lot more short of breath.. I did get a flu shot.. did that give me the flu... I am coughing a lot more.. can't get the stuff up... yes I am still smoking..." HPI HPI Patient is a 74 year old female who presents with above hx and complaints of increased dyspnea. Pt. reports marked increase of breathings treatments of albuterol. Pt. also using her MDI more frequent. Pt. denies any recent sick contacts or travel. Did recently receive her Flu vaccination. Patient has significant medical history brain surgery for and March 2019, coronary artery disease with stents, peripheral vascular disease, aortic bifemoral bypass, endarterectomy hypertension, hyperlipidemia, CHF, hypertension, hyperlipidemia, large midline abdomen hernia, COPD with chronic bronchitis, and chronic tobacco use. Patient normally follows with Dr. Austin. Review of Systems Review of Systems Constitutional: Subjective complaints of fever or chills [] Eyes: Denies change in visual acuity, redness, or eye pain [] HENT: Complaints of nasal congestion or sore throat [] Respiratory: Complaints of cough and shortness of breath [] Cardiovascular: No additional information not addressed in HPI [] GI: Denies abdominal pain, nausea, vomiting, bloody stools or diarrhea [] : Denies dysuria or hematuria [] Musculoskeletal: Complaints of chronic back pain or and knee joint pain Integument: Denies rash or skin lesions [] Neurologic: Denies headache, focal weakness or sensory changes [] Endocrine: Denies polyuria or polydipsia [] All other systems were reviewed and found to be within normal limits, except as documented in this note. Family History Family History Noncontributory Current Medications Current Medications Current Medications Medications (Trade) Dose Ordered Sig/Anita Start Time Stop Time Status Last Admin Dose Admin Aspirin (Children'S Aspirin) 324 mg 1X ONCE 05/08/19 01:30 05/08/19 03:19 DC 05/08/19 02:19 324 MG Methylprednisolone Sodium Succinate (SOLU-Medrol 125MG VIAL) 125 mg 1X ONCE 05/08/19 01:30 05/08/19 03:19 DC 05/08/19 02:10 125 MG Oxycodone/ Acetaminophen (Percocet 5/325) 1 tab 1X ONCE 05/08/19 02:30 05/08/19 03:19 DC 05/08/19 02:19 1 TAB Allergies Allergies Allergies Coded Allergies Type Severity Reaction Last Updated Verified Sulfa (Sulfonamide Antibiotics) Allergy Intermediate 05/08/19 No sulfamethoxazole Allergy Intermediate 05/08/19 No trimethoprim Allergy Intermediate 05/08/19 No Physical Exam Physical Exam Constitutional: Moderate acute distress, non-toxic appearance. [] HENT: Normocephalic, atraumatic, bilateral external ears normal, oropharynx moist, no oral exudates, nose normal. []Old scars. Eyes: PERRLA, EOMI, conjunctiva normal, no discharge. Wears glasses Neck: Normal range of motion, no tenderness, supple, no stridor. [] Cardiovascular:Tachycardia Heart rate, ill regular rhythm, PMI to Lt. Lungs & Thorax: Bilateral breath sounds equal at apexes with scattered wheezes and rhonchi on auscultation []Old surgery scar. Bibasilar crackles on respiration. Abdomen: Bowel sounds normal, soft, no tenderness, no masses, no pulsatile masses. Large mid line incision entire length of abd. with easily reducible midline hernia. Skin: Warm, dry, no erythema, no rash. Poor turgor Back: No tenderness, no CVA tenderness. [] Extremities: No tenderness, no cyanosis, no clubbing, ROM intact, ankle edema Rt> Lt. . [] Arthritic Neurologic: Alert and oriented X 3, moves ext. on request, has distal sensory, no focal deficits noted. [] Psychologic: Affect anxious, judgement normal, mood normal. [] Current Patient Data Vital Signs Vital Signs Date Time Temp Pulse Resp B/P (MAP) Pulse Ox O2 Delivery O2 Flow Rate FiO2 05/08/19 03:25 101 22 153/93 (113) 95 Room Air 05/08/19 01:30 97.9 Lab Results Laboratory Tests Test 05/08/19 02:05 White Blood Count 11.8 x10^3/uL (4.0-11.0) H Red Blood Count 3.99 x10^6/uL (3.50-5.40) Hemoglobin 11.9 g/dL (12.0-15.5) L Hematocrit 36.8 % (36.0-47.0) Mean Corpuscular Volume 92 fL (79-100) Mean Corpuscular Hemoglobin 30 pg (25-35) Mean Corpuscular Hemoglobin Concent 33 g/dL (31-37) Red Cell Distribution Width 15.8 % (11.5-14.5) H Platelet Count 238 x10^3/uL (140-400) Neutrophils (%) (Auto) 71 % (31-73) Lymphocytes (%) (Auto) 20 % (24-48) L Monocytes (%) (Auto) 8 % (0-9) Eosinophils (%) (Auto) 1 % (0-3) Basophils (%) (Auto) 1 % (0-3) Neutrophils # (Auto) 8.4 x10^3uL (1.8-7.7) H Lymphocytes # (Auto) 2.4 x10^3/uL (1.0-4.8) Monocytes # (Auto) 0.9 x10^3/uL (0.0-1.1) Eosinophils # (Auto) 0.1 x10^3/uL (0.0-0.7) Basophils # (Auto) 0.1 x10^3/uL (0.0-0.2) Prothrombin Time 11.0 SEC (9.4-11.4) Prothrombin Time INR 1.1 (0.9-1.1) Activated Partial Thromboplast Time 24 SEC (23-33) D-Dimer (Alexa) 2.21 mg/L (0.00-0.50) H Sodium Level 139 mmol/L (136-145) Potassium Level 4.1 mmol/L (3.5-5.1) Chloride Level 104 mmol/L (98-107) Carbon Dioxide Level 28 mmol/L (21-32) Anion Gap 7 (6-14) Blood Urea Nitrogen 12 mg/dL (7-20) Creatinine 1.2 mg/dL (0.6-1.0) H Estimated GFR (Cockcroft-Gault) 44.0 Glucose Level 145 mg/dL (70-99) H Calcium Level 8.6 mg/dL (8.5-10.1) Magnesium Level 1.9 mg/dL (1.8-2.4) Total Bilirubin 0.3 mg/dL (0.2-1.0) Direct Bilirubin 0.1 mg/dL (0.0-0.2) Aspartate Amino Transferase (AST) 17 U/L (15-37) Alanine Aminotransferase (ALT) 30 U/L (14-59) Alkaline Phosphatase 71 U/L (46-116) Creatine Kinase 26 U/L (26-192) Troponin I Quantitative < 0.017 ng/mL (0-0.055) CE-Ugh-D-Type Natriuretic Peptide 6120 pg/mL (0-124) H Total Protein 5.7 g/dL (6.4-8.2) L Albumin 3.2 g/dL (3.4-5.0) L Triglycerides Level 60 mg/dL (0-150) Cholesterol Level 165 mg/dL (0-200) LDL Cholesterol, Calculated 113 mg/dL (0-100) H VLDL Cholesterol, Calculated 12 mg/dL (0-40) Non-HDL Cholesterol Calculated 125 mg/dL (0-129) HDL Cholesterol 40 mg/dL (40-60) Cholesterol/HDL Ratio 4.0 Lipase 84 U/L (73-393) Thyroid Stimulating Hormone (TSH) 4.709 uIU/mL (0.358-3.740) Microbiology 05/08/19 Blood Culture - Final, Complete NO GROWTH AFTER 5 DAYS... EKG EKG My interpretation of EKG shows a irregular rate and rhythm. Has a ventricular rate of 100. Has occasional premature complexes, has had overall anterolateral strain pattern. Morphology is consistent with A. fib[] Radiology/Procedures Radiology/Procedures [address] [address] IMAGING REPORT Signed PATIENT: KERMIT SALAMANCA ACCOUNT: [id number] : 1945 LOCATION: ER AGE: 74 SEX: F EXAM STATUS: REG ER ORD. PHYSICIAN: CELESTINO CALLES MD REASON: Hx. S/P brain surgery sept., weakness, OMNI 350,75ml-REDUCED DOSE PROCEDURE: CT ANGIOGRAPHY CHEST CT arteriogram of the chest . HISTORY: Weakness brain surgery in March CT arteriogram of the chest was done using 75 mL Omnipaque 350 contrast. Coronal this study is negative for a pulmonary embolus. MIP images were reconstructed. Thyroid is homogeneous. Mediastinal lymph nodes are not definitively enlarged. There is a small left pleural effusion. There are foci of decreased density in the liver. There is a sharply marginated fairly low-density lesion in the left lobe probably a cyst. There is a more subtle low-density lesion to the right of the gallbladder fossa in the anterior liver which is nonspecific. Ultrasound or MRI the liver could be of benefit. Spleen and adrenal glands are normal. There is an anterior abdominal wall hernia in the upper abdomen. There is a granuloma in the right apex. Patient has a small nodular infiltrative pattern in the lungs from a multinodular metastatic pattern or miliary pattern. There is respiratory motion artifact. There is peribronchial thickening. There is atrophy of the right kidney which is very small. IMPRESSION: 1. Small liver lesions, nonspecific. 2. Atrophy of the right kidney. 3. Anterior abdominal wall hernia in the upper abdomen. 4. Small left pleural effusion. 5. Nodular infiltrative pattern in the lungs as well as other small focal nodules PQRS Compliance Statement: One or more of the following individualized dose reduction techniques were utilized for this examination: 1. Automated exposure control 2. Adjustment of the mA and/or kV according to patient size 3. Use of iterative reconstruction technique Electronically signed by: Kenan Bhandari MD (05/08/2019 6:01 AM) [facility] DICTATED AND SIGNED BY: KENAN BHANDARI MD DATE: 05/08/19 06 CC: CIRO AUSTIN MD; CELESTINO CALLES MD ~ [place] [address] IMAGING REPORT Signed PATIENT: KERMIT SALAMANCA ACCOUNT: [id number] : 1945 LOCATION: ER AGE: 74 SEX: F EXAM STATUS: REG ER ORD. PHYSICIAN: CELESTINO CALLES MD REASON: Hx. S/P brain surgery sept., weakness PROCEDURE: CT HEAD AND CERVICAL SPINE WO CT brain without contrast, CT cervical spine without contrast. HISTORY: Weakness, post brain surgery CT brain CT scan of brain was done without contrast. Stomach callosal thickening or mucous retention cyst in the right maxillary antrum. Patient's had a previous right frontal craniotomy. There is no intracranial hemorrhage or subdural hematoma. There is mild encephalomalacia of the frontal lobe on the right side in the region of the surgery. Ventricles are normal in size. There is no shift of the midline. There is mild decreased density in the periventricular white matter. There is an old lacunar infarcts in the basal ganglia on the right. There is slight density along the anterior falx which could be residual tumor if the patient had a meningioma. IMPRESSION: 1. Previous craniotomy. 2. No intracranial hemorrhage noted. 3. No recent study for comparison, possible residual tumor along the anterior falx. End impression CT cervical spine Axial CT images were obtained to the cervical spine. Sagittal and coronal reconstructed images were reviewed. Thyroid is homogeneous. There is moderate carotid artery calcifications carotid bifurcations on each side. There is no acute C-spine fracture. There is mild motion artifact. There is hypertrophic spurring with degenerative disc disease. There is mild spinal stenosis at C3-4 and C4-5. AP diameter of the canal measures 6 to 7 mm at C3-4. Canal measures 8 mm at C4-5. There is foraminal stenosis at C4-5 bilaterally from uncovertebral spurring. There is mild foraminal narrowing on the left side at C5-6 and C6-7 and on the right side at C6-7. IMPRESSION: 1. Degenerative changes in the cervical spine. 2. Spinal stenosis C3-4 and C4-5. 3. Facet arthritis and uncovertebral spurring with foraminal stenosis. PQRS Compliance Statement: One or more of the following individualized dose reduction techniques were utilized for this examination: 1. Automated exposure control 2. Adjustment of the mA and/or kV according to patient size 3. Use of iterative reconstruction technique Electronically signed by: Kenan Bhandari MD (05/08/2019 5:54 AM) [facility] DICTATED AND SIGNED BY: KENAN BHANDARI MD DATE: 05/08/19 0554 CC: CIRO AUSTIN MD; CELESTINO CALLES MD ~ [][address] [address] IMAGING REPORT Signed PATIENT: KERMIT SALAMANCA ACCOUNT: [id number] : 1945 LOCATION: ER AGE: 74 SEX: F EXAM STATUS: REG ER ORD. PHYSICIAN: CELESTINO CALLES MD REASON: dyspnea PROCEDURE: PORTABLE CHEST 1V Portable AP chest. HISTORY: Dyspnea AP view was taken of the chest. The heart is enlarged. There is minimal linear atelectasis or infiltrate along the left heart border in the left lung base. There is no effusion. IMPRESSION: 1. Cardiomegaly. 2. Mild left lung base atelectasis or infiltrate. Electronically signed by: Kenan Bhandari MD (05/08/2019 2:24 AM) [facility] DICTATED AND SIGNED BY: KENAN BHANDARI MD DATE: 05/08/19223 CC: CIRO AUSTIN MD; CELESTINO CALLES MD ~ Course & Med Decision Making Course & Med Decision Making Pertinent Labs and Imaging studies reviewed. (See chart for details) Discussed presentation, testing and tx. plan with Dr. Austin. Will admit to his service. CT Result currently pending. Will repeat US of legs on admission. Will continue gentle diuresis with Lasix. Will cover with antibiotics for possible infiltrate and sinus issues. Discussed risks and benefits of coverage or DVT, PE with hx of recent surgery on 03/15. Will give one dosage pending work up of repeat US . [] Final Impression Final Impression 1. Increased Dyspnea 2. COPD exacerbation 3. Leukocytosis 11.8 4. Anemia hemoglobin 11.9 5. Elevated d-dimer 2.21 6. Elevated creatinine 1.2 7. Diabetes glucose 145 8. CHF diastolic dysfunction-BNP 6120 9. History of Arterial occlusion TEASELER-SfA 10. Hx. of Brain mass- S/P Surgery 11.Lt Basilar Infiltrate vs. Atelectasis Dragon Disclaimer Dragon Disclaimer This electronic medical record was generated, in whole or in part, using a voice recognition dictation system. Dragon Disclaimer This chart was dictated in whole or in part using Voice Recognition software in a busy, high-work load, and often noisy Emergency Department environment. It may contain unintended and wholly unrecognized errors or omissions. CELESTINO CALLES MD May 08, 2019 01:23
[2019-05-08] MEDS ORDERED: ASPIRIN 81 MG TAB.CHEW PO ONE (01:30)
[2019-05-08] MEDS ORDERED: methylPREDNISolone SOD SUCC PF 125 MG/2 ML VIAL. IV ONE (01:30)
[2019-05-08] MEDS ORDERED: metoprolol (01:41)
[2019-05-08] MEDS ORDERED: keppra (01:43)
--- NOTE | 2019-05-08 02:28 | RAD ---
Portable AP chest. HISTORY: Dyspnea AP view was taken of the chest. The heart is enlarged. There is minimal linear atelectasis or infiltrate along the left heart border in the left lung base. There is no effusion. IMPRESSION: 1. Cardiomegaly. 2. Mild left lung base atelectasis or infiltrate. Electronically signed by: Kenan Bhandari MD (05/08/2019 2:24 AM) [facility]
[2019-05-08] MEDS ORDERED: oxyCODONE/APAP 5/325 1 TAB TABLET PO ONE (02:30)
[2019-05-08 02:44] LABS: ALBUMIN 3.2 g/dL (3.4-5.0); BASO # 0.1 x10^3/uL (0.0-0.2); BASO % 1 % (0-3); CALCIUM 8.6 mg/dL (8.5-10.1); CREATININE 1.2 mg/dL (0.6-1.0); DIRECT BILIRUBIN 0.1 mg/dL (0.0-0.2); EOS # 0.1 x10^3/uL (0.0-0.7); EOS % 1 % (0-3); HEMATOCRIT 36.8 % (36.0-47.0); HEMOGLOBIN 11.9 g/dL (12.0-15.5); LYMPH # 2.4 x10^3/uL (1.0-4.8); LYMPH % 20 % (24-48); MAGNESIUM 1.9 mg/dL (1.8-2.4); MEAN CORPUSCULAR HEMOGLOBIN 30 pg (25-35); MEAN CORPUSCULAR HGB CONC 33 g/dL (31-37); MEAN CORPUSCULAR VOLUME 92 fL (79-100); MONO # 0.9 x10^3/uL (0.0-1.1); MONO % 8 % (0-9); NEUT # 8.4 x10^3uL (1.8-7.7); NEUT % 71 % (31-73); PLATELET COUNT 238 x10^3/uL (140-400); POTASSIUM 4.1 mmol/L (3.5-5.1); RED BLOOD COUNT 3.99 x10^6/uL (3.50-5.40); RED CELL DISTRIBUTION WIDTH 15.8 % (11.5-14.5); TOTAL BILIRUBIN 0.3 mg/dL (0.2-1.0); TOTAL PROTEIN 5.7 g/dL (6.4-8.2); WHITE BLOOD COUNT 11.8 x10^3/uL (4.0-11.0)
[2019-05-08] MEDS ORDERED: cefTRIAXone SODIUM 1 GM VIAL ONE (03:43)
[2019-05-08] MEDS ORDERED: AZITHROMYCIN 250 MG TABLET. PO ONE (03:45)
[2019-05-08] MEDS ORDERED: FUROSEMIDE 40 MG/4 ML VIAL IVP ONE (03:45)
[2019-05-08] MEDS ORDERED: IOHEXOL 350 MG/ML 100 ML VIAL. IV ONE (04:30)
[2019-05-08] MEDS ORDERED: CONTRAST GIVEN MC PRN (04:45)
[2019-05-08 04:52] LABS: BARBITURATES NEG (NEG); BENZODIAZEPINES NEG (NEG); CANNABINOIDS NEG (NEG); COCAINE NEG (NEG); METHADONE NEG (NEG); OPIATES NEG (NEG); PHENCYCLIDINE NEG (NEG)
[2019-05-08 04:54] LABS: BACTERIA,URINE 0 /HPF (0-FEW); BILIRUBIN,URINE NEG (NEG); CLARITY,URINE CLEAR; COLOR,URINE YELLOW; GLUCOSE,URINE NEG (NEG); NITRITE,URINE NEG (NEG); RBC,URINE 0 /HPF (0-2); SQUAMOUS EPITHELIAL CELL,UR MOD /LPF; UROBILINOGEN,URINE 0.2 mg/dL (0.2 mg/dL); WBC,URINE OCC /HPF (0-4)
[2019-05-08 04:57] LABS: AMPHETAMINE/METHAMPHETAMINE NEG (NEG)
--- NOTE | 2019-05-08 05:57 | RAD ---
CT brain without contrast, CT cervical spine without contrast. HISTORY: Weakness, post brain surgery CT brain CT scan of brain was done without contrast. Stomach callosal thickening or mucous retention cyst in the right maxillary antrum. Patient's had a previous right frontal craniotomy. There is no intracranial hemorrhage or subdural hematoma. There is mild encephalomalacia of the frontal lobe on the right side in the region of the surgery. Ventricles are normal in size. There is no shift of the midline. There is mild decreased density in the periventricular white matter. There is an old lacunar infarcts in the basal ganglia on the right. There is slight density along the anterior falx which could be residual tumor if the patient had a meningioma. IMPRESSION: 1. Previous craniotomy. 2. No intracranial hemorrhage noted. 3. No recent study for comparison, possible residual tumor along the anterior falx. End impression CT cervical spine Axial CT images were obtained to the cervical spine. Sagittal and coronal reconstructed images were reviewed. Thyroid is homogeneous. There is moderate carotid artery calcifications carotid bifurcations on each side. There is no acute C-spine fracture. There is mild motion artifact. There is hypertrophic spurring with degenerative disc disease. There is mild spinal stenosis at C3-4 and C4-5. AP diameter of the canal measures 6 to 7 mm at C3-4. Canal measures 8 mm at C4-5. There is foraminal stenosis at C4-5 bilaterally from uncovertebral spurring. There is mild foraminal narrowing on the left side at C5-6 and C6-7 and on the right side at C6-7. IMPRESSION: 1. Degenerative changes in the cervical spine. 2. Spinal stenosis C3-4 and C4-5. 3. Facet arthritis and uncovertebral spurring with foraminal stenosis. PQRS Compliance Statement: One or more of the following individualized dose reduction techniques were utilized for this examination: 1. Automated exposure control 2. Adjustment of the mA and/or kV according to patient size 3. Use of iterative reconstruction technique Electronically signed by: Kenan Bhandari MD (05/08/2019 5:54 AM) [facility]
--- NOTE | 2019-05-08 06:04 | RAD ---
CT arteriogram of the chest . HISTORY: Weakness brain surgery in March CT arteriogram of the chest was done using 75 mL Omnipaque 350 contrast. Coronal this study is negative for a pulmonary embolus. MIP images were reconstructed. Thyroid is homogeneous. Mediastinal lymph nodes are not definitively enlarged. There is a small left pleural effusion. There are foci of decreased density in the liver. There is a sharply marginated fairly low-density lesion in the left lobe probably a cyst. There is a more subtle low-density lesion to the right of the gallbladder fossa in the anterior liver which is nonspecific. Ultrasound or MRI the liver could be of benefit. Spleen and adrenal glands are normal. There is an anterior abdominal wall hernia in the upper abdomen. There is a granuloma in the right apex. Patient has a small nodular infiltrative pattern in the lungs from a multinodular metastatic pattern or miliary pattern. There is respiratory motion artifact. There is peribronchial thickening. There is atrophy of the right kidney which is very small. IMPRESSION: 1. Small liver lesions, nonspecific. 2. Atrophy of the right kidney. 3. Anterior abdominal wall hernia in the upper abdomen. 4. Small left pleural effusion. 5. Nodular infiltrative pattern in the lungs as well as other small focal nodules PQRS Compliance Statement: One or more of the following individualized dose reduction techniques were utilized for this examination: 1. Automated exposure control 2. Adjustment of the mA and/or kV according to patient size 3. Use of iterative reconstruction technique Electronically signed by: Kenan Bhandari MD (05/08/2019 6:01 AM) [facility]
[2019-05-08] MEDS ORDERED: ONDANSETRON PF 4 MG/2 ML VIAL. IV PRN (06:15)
[2019-05-08] MEDS ORDERED: ACETAMINOPHEN 325 MG TABLET PO PRN (06:15)
[2019-05-08] MEDS ORDERED: ENOXAPARIN ** NOTE DOSE ** SYRINGE SQ ONE (06:30)
[2019-05-08 08:00] VITALS: BP 142/96
[2019-05-08] MEDS ORDERED: oxyCODONE/APAP 5/325 1 TAB TABLET PO PRN (09:00)
--- NOTE | 2019-05-08 09:11 | RAD ---
VENOUS LOWER EXT BILATERAL History: Largely pain and edema. Comparison: None. Discussion: Multiple longitudinal and transverse high resolution real-time images of the venous system of bilateral lower extremity were obtained with color and Doppler sampling. The common femoral, superficial femoral, popliteal and proximal calf veins are all patent and demonstrate normal flow and compressibility. Normal respiratory phasicity and augmentation is present. Impression: 1. No evidence of deep vein thrombosis within the bilateral lower extremities. Electronically signed by: Jose Caldwell DO (05/08/2019 9:08 AM) [facility]
[2019-05-08] MEDS: IPRATRPIUM/ALBUTEROL 0.5/2.5MG 3 ML NEBU. NEB SCH ×4 (09:17→21:53)
[2019-05-08] MEDS: LEVOTHYROXINE 75 MCG TABLET PO SCH (09:28)
[2019-05-08] MEDS: methylPREDNISolone SOD SUCC PF 125 MG/2 ML VIAL. IV SCH (09:28)
[2019-05-08] MEDS: CETIRIZINE HCL 10 MG TABLET PO SCH (09:28)
[2019-05-08] MEDS: MELOXICAM 7.5 MG TABLET PO SCH (09:28)
[2019-05-08] MEDS: ISOSORBIDE MONONITRATE ER 30 MG TAB.ER.24H PO SCH (09:29)
[2019-05-08] MEDS: LISINOPRIL 20 MG TABLET PO SCH (09:29)
--- NOTE | 2019-05-08 09:35 | RAD ---
DUPLEX LOWER EXTREMITY BILAT Indication: Edema. Pain. Comparison: April 10, 2019.. Procedure: Real-time grayscale, color flow Doppler, and Doppler spectral waveform analysis of the arterial system of the lower extremity is performed. Findings: Right lower extremity: Occlusion of the right common femoral artery extending to the level of the mid superficial femoral artery. Monophasic waveforms of the remaining distal right lower extremity arterial system. Decreased flow distally. Occlusion of the distal right posterior tibial artery. Left lower extremity: Biphasic waveform within the left common femoral and deep femoral arteries. Small bulbous appearance of the left common femoral superficial femoral artery junction. Monophasic waveform of the superficial femoral artery extending to the remainder of the lower extremity. No significant velocity elevation. IMPRESSION: 1. Occlusion of the right common femoral artery extending to the mid superficial femoral artery with distal reconstitution, previously extended to the distal superficial femoral artery. 2. Occlusion of the distal right posterior tibial artery, unchanged. 3. Monophasic waveforms throughout the left lower extremity, indicating proximal stenosis. Electronically signed by: Jose Caldwell DO (05/08/2019 9:32 AM) [facility]
[2019-05-08 09:39] LABS: INFLUENZA A PATIENT NEGATIVE (NEGATIVE); INFLUENZA B PATIENT NEGATIVE (NEGATIVE)
[2019-05-08 09:48] VITALS: BP 120/75
--- NOTE | 2019-05-08 10:04 | NUR ---
Admission Pt admitted to [facility] from ED. Daughter at bedside. VSS. NAD. Denies pain. US at bedside to perform BLE doppler. Droplet precautions initiated until flu screen results. Pt oriented to room and unit routines. All belongings accounted for.
--- NOTE | 2019-05-08 10:16 | NUR ---
IP: Pt has a hx of + mrsa screen on 12/22/17. Pt to be in contact precautions until there are 2 negative screens 7 days apart.
[2019-05-08] MEDS: RIVAROXABAN 15 MG TABLET. PO SCH ×2 (11:02→17:06)
[2019-05-08] MEDS ORDERED: ANTI-COAG MONITOR BY PHARMACY. MC PRN (11:45)
--- NOTE | 2019-05-08 13:11 | PDOC ---
PROVIDER NOTE PROVIDER NOTE PROVIDER NOTE Cardiology consultation note Reason for consultation dyspnea Mrs. Hernandez is a 74-year-old woman with past medical history as noted below who comes into the hospital in the setting of difficulty with breathing. She reports that she has had difficulty breathing through her nose and mouth likely due to some viral URI and also has been coughing. She denies any angina. No syncope or palpitations. 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 Simons and was found to have atrial fibrillation with a rapid ventricular response and her hydralazine was discontinued and she was started on metoprolol therapy. She states that after being given steroids for her breathing is improved. She unfortunately continues to smoke. Past medical history 1. Coronary artery disease status post PCI 2. Aortobifemoral bypass 3. Tobacco abuse 4. Dyslipidemia 5. Hypertension Social history is notable for continued tobacco use. No alcohol or illicit drug use. Family history is noncontributory Allergies reviewed include sulfa Current cardiac medications include lisinopril, metoprolol, atorvastatin, Imdur and recently it appears that she's been started on Xarelto Physical examination Vital signs stable, heart rate 100, blood pressure 112/82 The patient appeared well nourished and normally developed. Head exam is unremarkable. No scleral icterus or corneal arcus noted. Neck is without jugular venous distension, thyromegaly, or carotid bruits. Carotid upstrokes are brisk bilaterally. Lungs are notable for diffuse bilateral wheezing Cardiac exam reveals the PMI to be normally sized and situated. Rhythm is irregular. First and second heart sounds normal. No murmurs, rubs or gallops. Abdominal exam reveals normal bowel sounds, no masses, no organomegaly and no aortic enlargement. Extremities are nonedematous and both femoral and pedal pulses are normal. Msk: No traumua Neuro: No focal deficits Diagnostic studies: EKG is unavailable for review but it appears that the ER physician had noted atrial fibrillation with a mostly controlled ventricular response CT angiography reviewed Labs reviewed negative troponin Impression: 1. Probable COPD exacerbation 2. Known chronic atrial fibrillation with fairly controlled ventricular response 3. Probable acute on chronic diastolic heart failure 4. Severe peripheral arterial disease status post aortobifemoral bypass with finding of SFA occlusion on the right side without any critical limb ischemia at this time Recommendations: 1. We will confirm with the neurosurgical colleagues at [facility] to ensure that she is able to tolerate anticoagulation given her recent tumor removal 2. We will start her on low-dose metoprolol for rate control 3. Recent ejection fraction of 40-45% on echocardiogram, continue current medical therapy for blood pressure and dyslipidemia. Thank you for this consultation. ED PACHECO MD May 08, 2019 13:11
[2019-05-08 13:49] LABS: THYROID STIM HORMONE (TSH) 4.709 uIU/mL (0.358-3.740)
[2019-05-08 14:13] VITALS: BP 123/79
[2019-05-08] MEDS: METOPROLOL TART IMMED RELEASE 25 MG TABLET PO SCH ×3 (15:07→23:56)
[2019-05-08] MEDS ORDERED: DOCU-109 PO (15:43)
[2019-05-08] MEDS: DOCUSATE SODIUM 100 MG CAPSULE PO PRN (17:05)
--- NOTE | 2019-05-08 19:11 | HP ---
ADMIT DATE: 05/08/2019 HISTORY OF PRESENT ILLNESS: This is a 74-year-old female came in through the Emergency Room. The patient had 3-4 day history of increased shortness of breath treatments at home with her nebulizer; however, she became increasingly worse and as a result of this, the patient was admitted to the hospital for further evaluation and treatment. The patient recently had a brain tumor surgery to remove a mass from her brain. The patient was admitted for heart failure and further evaluation. PAST MEDICAL HISTORY: She has had seizures, brain tumor. She is on Keppra, heart attack, cardiomegaly STEMI in 2015, congestive heart failure, coronary artery disease, aortofemoral bypass, hypercholesterolemia, hypertension, DVT, respiratory disorder, COPD, bronchitis, pneumonia, reproductive disorders, hysterectomy. She has had chronic renal problems, osteoarthritis, hypothyroidism, history of tobacco abuse, blood disorders, anemia. IMMUNIZATIONS: For influenza, pneumococcal up to date, history of MRSA. FAMILY HISTORY: Heart attack. ALLERGIES: SULFUR. MEDICATIONS: Reconciliation of medications were undertaken and found to be that of Abbey 180, ProAir inhaler, Lipitor 80, isosorbide, lisinopril 20, meloxicam, oxycodone, docusate, levothyroxine 75 and Keppra. SOCIAL HISTORY: The patient has a [id number] history of smoking, quit last year. Is a FULL CODE. Denies alcohol or hard drug use. REVIEW OF SYSTEMS: Just increased shortness of breath, congestion. No chest pain, no chest tightness, no nausea, vomiting, melena, hematochezia, hematemesis. Neurologically baseline for this patient. PHYSICAL EXAMINATION: GENERAL: Pleasant white female. VITAL SIGNS: Blood pressure 123/80, respiratory rate 20, pulse as noted 120, respiratory rate 20, pulse afebrile and the patient otherwise will be monitored carefully there. HEENT: Head atraumatic, normocephalic. Eyes: PERRLA without jaundice. The mouth and throat were normal. NECK: Supple, without JVD, carotid bruits. No thyromegaly. LUNGS: Diminished throughout, poor movement of air, some crackles noted in the bases. CARDIOVASCULAR: Irregularly irregular. ABDOMEN: Soft, nontender, protuberant. EXTREMITIES: No clubbing, cyanosis, nor edema. NEUROLOGIC: Baseline for her. CTA shows possible metastatic disease to her lung. IMPRESSION: Acute on top of chronic diastolic heart failure, brain cancer, possible mets to the brain, acute on top of chronic diastolic as mentioned, chronic kidney disease stage 3, type 2 diabetes, moderate protein malnutrition, hypercholesterolemia, hypothyroidism. The patient will be diuresed in the usual fashion. Continue to monitor her accordingly and make further evaluation on her as indicated. CIRO AUSTIN MD DR: CHRISTIAN/nts JOB#: [id number] / [id number]
[2019-05-08 19:42] VITALS: BP 124/72
[2019-05-08] MEDS: levETIRAcetam 500 MG TABLET PO SCH (20:33)
[2019-05-08] MEDS: ATORVASTATIN CALCIUM 20 MG TABLET PO SCH (20:34)
[2019-05-08] MEDS ORDERED: ENOXAPARIN ** NOTE DOSE ** SYRINGE SQ SCH (21:00)
[2019-05-08 22:37] VITALS: BP 150/78
[2019-05-09] MEDS: IPRATRPIUM/ALBUTEROL 0.5/2.5MG 3 ML NEBU. NEB SCH (05:34)
[2019-05-09 05:41] VITALS: BP 126/87
[2019-05-09] MEDS: METOPROLOL TART IMMED RELEASE 25 MG TABLET PO SCH (05:44)
[2019-05-09] MEDS: LEVOTHYROXINE 75 MCG TABLET PO SCH (05:44)
[2019-05-09 06:25] LABS: BASO % 0 % (0-3); EOS % 0 % (0-3); HEMATOCRIT 35.1 % (36.0-47.0); HEMOGLOBIN 11.2 g/dL (12.0-15.5); LYMPH # 1.5 x10^3/uL (1.0-4.8); LYMPH % 6 % (24-48); MEAN CORPUSCULAR HEMOGLOBIN 29 pg (25-35); MEAN CORPUSCULAR HGB CONC 32 g/dL (31-37); MEAN CORPUSCULAR VOLUME 91 fL (79-100); MONO # 1.2 x10^3/uL (0.0-1.1); MONO % 4 % (0-9); NEUT # 24.2 x10^3uL (1.8-7.7); NEUT % 90 % (31-73); PLATELET COUNT 262 x10^3/uL (140-400); RED BLOOD COUNT 3.84 x10^6/uL (3.50-5.40); RED CELL DISTRIBUTION WIDTH 15.6 % (11.5-14.5)
[2019-05-09 06:34] LABS: CALCIUM 9.1 mg/dL (8.5-10.1); CREATININE 1.2 mg/dL (0.6-1.0)
[2019-05-09 06:42] LABS: WHITE BLOOD COUNT 26.9 x10^3/uL (4.0-11.0)
[2019-05-09] MEDS: levETIRAcetam 500 MG TABLET PO SCH ×2 (08:02→20:26)
[2019-05-09] MEDS: RIVAROXABAN 15 MG TABLET. PO SCH ×2 (08:02→16:09)
[2019-05-09] MEDS: MELOXICAM 7.5 MG TABLET PO SCH (08:02)
[2019-05-09] MEDS: methylPREDNISolone SOD SUCC PF 125 MG/2 ML VIAL. IV SCH (08:02)
[2019-05-09] MEDS: DOCUSATE SODIUM 100 MG CAPSULE PO PRN ×2 (08:02→20:27)
[2019-05-09] MEDS: CETIRIZINE HCL 10 MG TABLET PO SCH (08:03)
[2019-05-09] MEDS: ISOSORBIDE MONONITRATE ER 30 MG TAB.ER.24H PO SCH (08:03)
[2019-05-09] MEDS: LISINOPRIL 20 MG TABLET PO SCH (08:04)
[2019-05-09] MEDS: AZITHROMYCIN 250 MG TABLET. PO SCH (08:10)
[2019-05-09 09:42] LABS: % ATYL 1 % (0-0); % BANDS 7 % (0-9); % LYMPHS 4 % (24-48); % MONOS 4 % (0-10); % SEGS 84 % (35-66)
[2019-05-09 09:43] LABS: PLT ESTIMATE ADEQUATE (ADEQUATE)
--- NOTE | 2019-05-09 09:45 | PDOC ---
LIZETTE HERNANDEZ WIRELESS CELLULAR TECHNICIAN 05/09/19 0945: CARDIO Progress Notes Date & Time Date of Service DATE: 05/09/19 TIME: 09:31 Time of Evaluation 09:31 Subjective Notes No complaints, wanting to go home today as she has vacation planned to see daughter and granddaughter Vitals Vitals Vital Signs Date Time Temp Pulse Resp B/P (MAP) Pulse Ox O2 Delivery O2 Flow Rate FiO2 05/09/19 08:04 92 126/87 05/09/19 05:41 98.4 20 92 Room Air Weight Weight [ ] Input and Output I.O. Intake and Output 05/09/19 07:00 Intake Total 380 ml Balance 380 ml Intake Oral 380 ml # Voids 6 Laboratory Labs Laboratory Tests Test 05/08/19 02:05 05/08/19 04:25 05/08/19 09:10 05/08/19 11:07 White Blood Count 11.8 x10^3/uL (4.0-11.0) Red Blood Count 3.99 x10^6/uL (3.50-5.40) Hemoglobin 11.9 g/dL (12.0-15.5) Hematocrit 36.8 % (36.0-47.0) Mean Corpuscular Volume 92 fL (79-100) Mean Corpuscular Hemoglobin 30 pg (25-35) Mean Corpuscular Hemoglobin Concent 33 g/dL (31-37) Red Cell Distribution Width 15.8 % (11.5-14.5) Platelet Count 238 x10^3/uL (140-400) Neutrophils (%) (Auto) 71 % (31-73) Lymphocytes (%) (Auto) 20 % (24-48) Monocytes (%) (Auto) 8 % (0-9) Eosinophils (%) (Auto) 1 % (0-3) Basophils (%) (Auto) 1 % (0-3) Neutrophils # (Auto) 8.4 x10^3uL (1.8-7.7) Lymphocytes # (Auto) 2.4 x10^3/uL (1.0-4.8) Monocytes # (Auto) 0.9 x10^3/uL (0.0-1.1) Eosinophils # (Auto) 0.1 x10^3/uL (0.0-0.7) Basophils # (Auto) 0.1 x10^3/uL (0.0-0.2) Prothrombin Time 11.0 SEC (9.4-11.4) Prothromb Time International Ratio 1.1 (0.9-1.1) Activated Partial Thromboplast Time 24 SEC (23-33) D-Dimer (Alexa) 2.21 mg/L (0.00-0.50) Sodium Level 139 mmol/L (136-145) Potassium Level 4.1 mmol/L (3.5-5.1) Chloride Level 104 mmol/L (98-107) Carbon Dioxide Level 28 mmol/L (21-32) Anion Gap 7 (6-14) Blood Urea Nitrogen 12 mg/dL (7-20) Creatinine 1.2 mg/dL (0.6-1.0) Estimated GFR (Cockcroft-Gault) 44.0 Glucose Level 145 mg/dL (70-99) Calcium Level 8.6 mg/dL (8.5-10.1) Magnesium Level 1.9 mg/dL (1.8-2.4) Total Bilirubin 0.3 mg/dL (0.2-1.0) Direct Bilirubin 0.1 mg/dL (0.0-0.2) Aspartate Amino Transf (AST/SGOT) 17 U/L (15-37) Alanine Aminotransferase (ALT/SGPT) 30 U/L (14-59) Alkaline Phosphatase 71 U/L (46-116) Creatine Kinase 26 U/L (26-192) Troponin I Quantitative < 0.017 ng/mL (0-0.055) FG-Lmw-S-Type Natriuretic Peptide 6120 pg/mL (0-124) Total Protein 5.7 g/dL (6.4-8.2) Albumin 3.2 g/dL (3.4-5.0) Triglycerides Level 60 mg/dL (0-150) Cholesterol Level 165 mg/dL (0-200) LDL Cholesterol, Calculated 113 mg/dL (0-100) VLDL Cholesterol, Calculated 12 mg/dL (0-40) Non-HDL Cholesterol Calculated 125 mg/dL (0-129) HDL Cholesterol 40 mg/dL (40-60) Cholesterol/HDL Ratio 4.0 Lipase 84 U/L (73-393) Thyroid Stimulating Hormone (TSH) 4.709 uIU/mL (0.358-3.740) Urine Collection Type Unknown Urine Color Yellow Urine Clarity Clear Urine pH 7.0 Urine Specific Chama 1.015 Urine Protein Neg (NEG-TRACE) Urine Glucose (UA) Neg mg/dL (NEG) Urine Ketones (Stick) Neg mg/dL (NEG) Urine Blood Neg (NEG) Urine Nitrite Neg (NEG) Urine Bilirubin Neg (NEG) Urine Urobilinogen Dipstick 0.2 mg/dL (0.2 mg/dL) Urine Leukocyte Esterase Neg (NEG) Urine RBC 0 /HPF (0-2) Urine WBC Occ /HPF (0-4) Urine Squamous Epithelial Cells Mod /LPF Urine Bacteria 0 /HPF (0-FEW) Urine Opiates Screen Neg (NEG) Urine Methadone Screen Neg (NEG) Urine Barbiturates Neg (NEG) Urine Phencyclidine Screen Neg (NEG) Urine Amphetamine/Methamphetamine Neg (NEG) Urine Benzodiazepines Screen Neg (NEG) Urine Cocaine Screen Neg (NEG) Urine Cannabinoids Screen Neg (NEG) Urine Ethyl Alcohol Neg (NEG) Influenza Type A (Rapid) Negative (NEGATIVE) Influenza Type B (Rapid) Negative (NEGATIVE) Nasal Screen MRSA (PCR) Positive (Negative) Test 05/09/19 05:50 White Blood Count 26.9 x10^3/uL (4.0-11.0) Red Blood Count 3.84 x10^6/uL (3.50-5.40) Hemoglobin 11.2 g/dL (12.0-15.5) Hematocrit 35.1 % (36.0-47.0) Mean Corpuscular Volume 91 fL (79-100) Mean Corpuscular Hemoglobin 29 pg (25-35) Mean Corpuscular Hemoglobin Concent 32 g/dL (31-37) Red Cell Distribution Width 15.6 % (11.5-14.5) Platelet Count 262 x10^3/uL (140-400) Neutrophils (%) (Auto) 90 % (31-73) Lymphocytes (%) (Auto) 6 % (24-48) Monocytes (%) (Auto) 4 % (0-9) Eosinophils (%) (Auto) 0 % (0-3) Basophils (%) (Auto) 0 % (0-3) Neutrophils # (Auto) 24.2 x10^3uL (1.8-7.7) Lymphocytes # (Auto) 1.5 x10^3/uL (1.0-4.8) Monocytes # (Auto) 1.2 x10^3/uL (0.0-1.1) Eosinophils # (Auto) 0.0 x10^3/uL (0.0-0.7) Basophils # (Auto) 0.0 x10^3/uL (0.0-0.2) Sodium Level 137 mmol/L (136-145) Potassium Level 4.0 mmol/L (3.5-5.1) Chloride Level 100 mmol/L (98-107) Carbon Dioxide Level 28 mmol/L (21-32) Anion Gap 9 (6-14) Blood Urea Nitrogen 23 mg/dL (7-20) Creatinine 1.2 mg/dL (0.6-1.0) Estimated GFR (Cockcroft-Gault) 44.0 Glucose Level 149 mg/dL (70-99) Calcium Level 9.1 mg/dL (8.5-10.1) Microbiology Micro Microbiology 05/08/19 Blood Culture - Preliminary, Resulted NO GROWTH AFTER 1 DAY... Physical Exams HEENT: Neck Supple W Full Motion Chest: Symmetric Lungs: Other (bilateral rhonchi ) Heart: S1S2, RRR Abdomen: Soft N/T Extremities: No Edema Neurology: alert, oriented, follow commands Assessment Assessment 1. Probable COPD exacerbation. improved 2. PAFIB; remains in AFIB, rate intermittently elevated. 3. Mild acute on chronic systolic/diastolic heart failure; LVEF 40-45%. S/p IV Lasix 4. CAD s/p PCI/stent. Most rent cath with PCI/MAUDE to the LAD and PTCA to the LCx 4. Severe PAD s/p aortobifemoral bypass with finding of SFA occlusion on the right side without any critical limb ischemia at this time 5. S/p brain tumor removal; 03/15/19 6. Hypertension; controlled 7. Hyperlipidemia 8. Tobaccoism; discussed/encouraged cessation Recommendations: Metoprolol for rate control; will increase for better rate control Case d/w Cassidy Vargas, neurosurgery FOOD PREPARATION WORKER at [facility]; okay to proceed with OAC Xarelto for stroke prevention Consider outpatient CV following 3-4 weeks of OAC Secondary prevention measures. Outpatient f/u of PAD Follow up with Dr. Simons as previously scheduled. DIANA SIMONS MD 05/09/19 1935: CARDIO Progress Notes Assessment Assessment Patient seen and examined. Agree with FOOD PREPARATION WORKER's assessment and plan A. Fib rate better controlled but still slightly elevated Increase metoprolol dose and add digoxin for better rate control AC okay per neurosurgery - agree with xarelto for stroke prophylaxis and plan outpatient cardioversion in 3-4 weeks CAD clinically stable Continue current treatment for AECOPD LIZETTE HERNANDEZ APRN May 09, 2019 09:45 DIANA SIMONS MD May 09, 2019 19:35
[2019-05-09] MEDS ORDERED: METOPROLOL TART IMMED RELEASE 50 MG TABLET PO ONE (10:00)
[2019-05-09 10:34] VITALS: BP 129/81
[2019-05-09] MEDS: ALBUTEROL SULFATE 2.5 MG/3 ML NEBU. INH PRN ×2 (10:58→21:30)
[2019-05-09 14:50] VITALS: BP 139/82
[2019-05-09 19:32] VITALS: BP 126/75
[2019-05-09] MEDS ORDERED: DIGOXIN IV 500 MCG/2 ML AMPUL. IV ONE (19:45)
[2019-05-09] MEDS: ATORVASTATIN CALCIUM 20 MG TABLET PO SCH (20:26)
[2019-05-09] MEDS: METOPROLOL TART IMMED RELEASE 50 MG TABLET PO SCH (20:27)
[2019-05-09] MEDS: LACTOBACILLUS RHAMNOSUS GG 1 CAPSULE. PO SCH (20:27)
[2019-05-09] MEDS: methylPREDNISolone SOD SUCC PF 40 MG/ML VIAL. IV SCH (20:28)
[2019-05-09 23:27] VITALS: BP 154/92
[2019-05-10 05:11] VITALS: BP 152/93
[2019-05-10] MEDS: LEVOTHYROXINE 75 MCG TABLET PO SCH (05:22)
[2019-05-10] MEDS: ALBUTEROL SULFATE 2.5 MG/3 ML NEBU. INH PRN (05:38)
--- NOTE | 2019-05-10 05:55 | PN ---
DATE: 05/09/2019 SUBJECTIVE: A 74-year-old -[place] female in with a combination of influenza type B as well as some mild congestive heart failure. The patient is still very weak and tired. Blood pressure 139/82, respiratory rate 24, pulse 110, afebrile. The patient seems to be making fairly good progress. The patient's white count has jumped up probably from her steroids. They were using again bring down her to help her with her COPD. The patient's positive D-dimer was unremarkable in terms of her CTA. There are no signs of infection; however, there was probably a nodular infiltrate consistent with possible metastatic cancer on her CT scan, so we will continue to monitor that vehemently and make further evaluation on that. OBJECTIVE: GENERAL: The patient is alert and oriented. VITAL SIGNS: Blood pressure 140/82, respiratory rate 24, pulse 110, afebrile. The patient is alert and oriented. LUNGS: Diminished, some crackles noted in the bases. CARDIOVASCULAR: Regular sinus rhythm. ABDOMEN: Soft, nontender. IMPRESSION: Exacerbation of chronic obstructive pulmonary disease, upper respiratory tract infection, paroxysmal atrial fibrillation, rate increased mild acute on top of chronic diastolic, systolic heart failure, EF of 40-45%, severe peripheral arterial disease, brain tumor, possible metastatic cancer to the lungs, hypertension, controlled, hyperlipidemia and again I encouraged her to stop her smoking episodes. CIRO AUSTIN MD DR: CHRISTIAN/kat JOB#: [id number] / [id number]
--- NOTE | 2019-05-10 08:17 | PDOC ---
CARDIO Progress Notes Date & Time Date of Service DATE: 05/10/19 TIME: 08:15 Time of Evaluation 08:15 Subjective Notes No chest pain, palpitations, dizziness. SOA improved. Was able to ambulate with PT this morning without any significant dyspnea. Vitals Vitals Vital Signs Date Time Temp Pulse Resp B/P (MAP) Pulse Ox O2 Delivery O2 Flow Rate FiO2 05/10/19 05:40 96 Room Air 05/10/19 05:11 98.3 86 20 152/93 (112) Weight Weight [ ] Input and Output I.O. Intake and Output 05/10/19 06:59 Intake Total 1140 ml Balance 1140 ml Intake Oral 1090 ml IV Total 50 ml # Voids 5 Laboratory Labs Laboratory Tests Test 05/08/19 09:10 05/08/19 11:07 05/09/19 05:50 Influenza Type A (Rapid) Negative (NEGATIVE) Influenza Type B (Rapid) Negative (NEGATIVE) Nasal Screen MRSA (PCR) Positive (Negative) White Blood Count 26.9 x10^3/uL (4.0-11.0) Red Blood Count 3.84 x10^6/uL (3.50-5.40) Hemoglobin 11.2 g/dL (12.0-15.5) Hematocrit 35.1 % (36.0-47.0) Mean Corpuscular Volume 91 fL (79-100) Mean Corpuscular Hemoglobin 29 pg (25-35) Mean Corpuscular Hemoglobin Concent 32 g/dL (31-37) Red Cell Distribution Width 15.6 % (11.5-14.5) Platelet Count 262 x10^3/uL (140-400) Neutrophils (%) (Auto) 90 % (31-73) Lymphocytes (%) (Auto) 6 % (24-48) Monocytes (%) (Auto) 4 % (0-9) Eosinophils (%) (Auto) 0 % (0-3) Basophils (%) (Auto) 0 % (0-3) Neutrophils # (Auto) 24.2 x10^3uL (1.8-7.7) Lymphocytes # (Auto) 1.5 x10^3/uL (1.0-4.8) Monocytes # (Auto) 1.2 x10^3/uL (0.0-1.1) Eosinophils # (Auto) 0.0 x10^3/uL (0.0-0.7) Basophils # (Auto) 0.0 x10^3/uL (0.0-0.2) Segmented Neutrophils % 84 % (35-66) Band Neutrophils % 7 % (0-9) Lymphocytes % 4 % (24-48) Atypical Lymphocytes % (Manual) 1 % (0-0) Monocytes % 4 % (0-10) Platelet Estimate Adequate (ADEQUATE) Sodium Level 137 mmol/L (136-145) Potassium Level 4.0 mmol/L (3.5-5.1) Chloride Level 100 mmol/L (98-107) Carbon Dioxide Level 28 mmol/L (21-32) Anion Gap 9 (6-14) Blood Urea Nitrogen 23 mg/dL (7-20) Creatinine 1.2 mg/dL (0.6-1.0) Estimated GFR (Cockcroft-Gault) 44.0 Glucose Level 149 mg/dL (70-99) Calcium Level 9.1 mg/dL (8.5-10.1) Microbiology Micro Microbiology 05/08/19 Blood Culture - Preliminary, Resulted NO GROWTH AFTER 2 DAYS... Physical Exams HEENT: Neck Supple W Full Motion Chest: Symmetric Lungs: Other (bilateral rhonchi ) Heart: S1S2, irregularly irregular Abdomen: Soft N/T Extremities: No Edema Neurology: alert, oriented, follow commands Assessment Assessment 1. AE COPD; improved 2. PAFIB; remains in AFIB, rate now controlled with addition of digoxin 3. Mild acute on chronic systolic/diastolic heart failure; LVEF 40-45%. 4. CAD s/p PCI/stent; Most recent cath with PCI/MAUDE to the LAD and PTCA to the LCx 4. Severe PAD s/p aortobifemoral bypass with finding of SFA occlusion on the right side without any critical limb ischemia at this time 5. S/p brain tumor removal; 03/15/19 6. Hypertension; controlled 7. Hyperlipidemia 8. Tobaccoism; discussed/encouraged cessation Recommendations: Continue metoprolol/digoxin for rate control Xarelto for stroke prophylaxis Will plan for outpatient cardioversion in 3-4 weeks Secondary prevention measures. Follow up with Dr. Simons as previously scheduled. LIZETTE HERNANDEZ APRN May 10, 2019 08:17
[2019-05-10] MEDS: methylPREDNISolone SOD SUCC PF 40 MG/ML VIAL. IV SCH (08:22)
[2019-05-10] MEDS: CETIRIZINE HCL 10 MG TABLET PO SCH (08:22)
[2019-05-10] MEDS: levETIRAcetam 500 MG TABLET PO SCH (08:23)
[2019-05-10] MEDS: RIVAROXABAN 15 MG TABLET. PO SCH (08:23)
[2019-05-10] MEDS: ISOSORBIDE MONONITRATE ER 30 MG TAB.ER.24H PO SCH (08:23)
[2019-05-10] MEDS: METOPROLOL TART IMMED RELEASE 50 MG TABLET PO SCH (08:23)
[2019-05-10] MEDS: DOCUSATE SODIUM 100 MG CAPSULE PO PRN (08:23)
[2019-05-10] MEDS: LACTOBACILLUS RHAMNOSUS GG 1 CAPSULE. PO SCH (08:24)
[2019-05-10] MEDS: MELOXICAM 7.5 MG TABLET PO SCH (08:24)
[2019-05-10] MEDS: LISINOPRIL 20 MG TABLET PO SCH (08:24)
[2019-05-10] MEDS: AZITHROMYCIN 250 MG TABLET. PO SCH (08:39)
[2019-05-10] MEDS ORDERED: DIGOXIN 125 MCG TABLET PO SCH (09:00)
[2019-05-10] MEDS ORDERED: CEPH500C PO (10:30)
[2019-05-10] MEDS ORDERED: PRED-220 PO (10:30)
[2019-05-10 10:36] VITALS: BP 128/67
--- NOTE | 2019-05-10 11:27 | NUR ---
NURSING NOTES: PATIENT DISCHARGED FROM HOSPITAL TO HOME. PATIENT ESCORTED BY FAMILY TO FAMILY VEHICLE. ALL PATIENT BELONGINGS SENT HOME WITH PATIENT. DISCHARGE INSTRUCTIONS GIVEN TO PATIENT AND VOICED UNDERSTANDING.
--- NOTE | 2019-05-10 12:35 | DS ---
DATE OF DISCHARGE: 05/10/2019 HOSPITAL COURSE: A 74-year-old female came in with increased shortness of breath, difficulty breathing. The patient made good progress with aggressive pulmonary toilet as well as some steroids and some mild diuresis as she did have a mild congestive heart failure. She had paroxysmal atrial fibrillation and the patient in turn made good progress. She has a history of brain tumor. The scans unfortunately showed the possibility that she may have metastatic disease in her lungs. That is a possibility and she will need to follow up with her oncologist on that issue as well. Otherwise, Cardiology saw her and agreed that she did have a mild case of acute on top of chronic diastolic heart failure with an ejection fraction of 45%. The patient is doing quite well overall and she was discharged home. DISCHARGE DIAGNOSES: Acute exacerbation of chronic obstructive pulmonary disease with hypoxia, paroxysmal atrial fibrillation, mild [id number] systolic and diastolic heart failure, coronary artery disease, history of brain tumor with possible metastatic disease, controlled hypertension, peripheral artery disease, hyperlipidemia. The patient was encouraged to stop smoking and she will follow up with Dr. Simons for possible ablation for her atrial fibrillation. CIRO AUSTIN MD DR: CHRISTIAN/kat JOB#: [id number] / [id number]
[2019-05-29] MEDS ORDERED: RIVAROXABAN 10 MG TABLET. PO SCH (09:00)
== END 2019-05-10 11:29 | disposition home or self-care (01) | DRG 871 ==
LOC: ER 01:15 → 1 SOUTH 03:30
PROVIDERS: ADMIT Family Medicine; ATTEND Family Medicine
DX: A41.9 Sepsis, unspecified organism (principal); I50.43 Acute on chronic combined systolic (congestive) and diastolic (congestive) heart failure; I13.0 Hypertensive heart and chronic kidney disease with heart failure and stage 1 through stage 4 chronic kidney disease, or unspecified chronic kidney disease; J44.1 Chronic obstructive pulmonary disease with (acute) exacerbation; E44.0 Moderate protein-calorie malnutrition; J98.11 Atelectasis; I48.20 Chronic atrial fibrillation, unspecified; J44.0 Chronic obstructive pulmonary disease with (acute) lower respiratory infection; F41.9 Anxiety disorder, unspecified; M19.90 Unspecified osteoarthritis, unspecified site; I25.10 Atherosclerotic heart disease of native coronary artery without angina pectoris; E78.00 Pure hypercholesterolemia, unspecified; F17.200 Nicotine dependence, unspecified, uncomplicated; E11.22 Type 2 diabetes mellitus with diabetic chronic kidney disease; N18.3 Chronic kidney disease, stage 3 (moderate); E78.5 Hyperlipidemia, unspecified; E11.51 Type 2 diabetes mellitus with diabetic peripheral angiopathy without gangrene; J20.9 Acute bronchitis, unspecified; I70.209 Unspecified atherosclerosis of native arteries of extremities, unspecified extremity; I48.0 Paroxysmal atrial fibrillation; J10.1 Influenza due to other identified influenza virus with other respiratory manifestations; R09.02 Hypoxemia; E03.9 Hypothyroidism, unspecified; Z90.710 Acquired absence of both cervix and uterus; Z95.5 Presence of coronary angioplasty implant and graft; Z86.14 Personal history of Methicillin resistant Staphylococcus aureus infection; Z88.2 Allergy status to sulfonamides; Z88.8 Allergy status to other drugs, medicaments and biological substances; D64.9 Anemia, unspecified; Z82.49 Family history of ischemic heart disease and other diseases of the circulatory system; Z86.011 Personal history of benign neoplasm of the brain; Z68.24 Body mass index [BMI] 24.0-24.9, adult; I25.2 Old myocardial infarction
CPT/HCPCS: 36415; 70450; 71045; 71275; 72125; 80048; 80061; 80076; 80307; 81001; 82550; 83690; 83735; 83880; 84443; 84484; 85007; 85025; 85379; 85610; 85730; 87040; 87641; 87804; 93925; 93970; 94640; 96372; 96374; 96375; G0238; J0456; J0696; J1160; J1650; J1940; J2920; J2930; J7613; J7620; Q9967; 99285-25

== ENCOUNTER 2019-06-25 07:18 | Emergency (ER) | payer MEDICARE, OTHER ==
[~2019-06-25] VITALS: Ht 162.6 cm; Wt 67.0 kg
[2019-06-25 07:18] VITALS: BP 155/55
[~2019-06-25 07:18] MED LIST changes: +CEPH500C PO; +DOCU-109 PO; +PRED-220 PO; +keppra PO; +metoprolol PO
[2019-06-25] MEDS ORDERED: ORPHENADRINE CITRATE 60 MG/2 ML VIAL. IM ONE (07:30)
--- NOTE | 2019-06-25 07:34 | PHYS DOC ---
Past History Past Medical History: Anemia, Angina, Anxiety, Arthritis, Arrhythmia, Bronchitis, CAD, CHF, COPD, DVT, High Cholesterol, Hypertension, Hypothyroid, Renal Disease, Other Additional Past Medical Histor: brain tumor; rt [employer]URES to distal SFA occlusion and occlusion of distal tibial Past Surgical History: Cancer Surgery, Hysterectomy, Other Additional Past Surgical Histo: brain sx on 03/15 for benign brain tumor frontal lobe; aortobifem bypass Smoking: Cigarettes Alcohol Use: None Drug Use: None Adult General Chief Complaint Chief Complaint: BACK INJURY HPI HPI Patient is a 74-year-old female presents complaining of low back pain without a fall. Patient reports she had an MRI performed several months ago at an outside facility that showed multiple bulging disks. She has had no trauma. No loss of bowel or bladder control. Pain became worse last night/early this morning. No significant relief with hydrocodone. She is scheduled for follow-up with orthopedic surgery the beginning of July 2019. Increased pain with movement. Pain is severe. Patient has a history several months ago of having a brain tumor resected. There has been no changes in weight. No fever. No injection drug use/abuse.[] Review of Systems Review of Systems Constitutional: Denies fever or chills [] Eyes: Denies change in visual acuity, redness, or eye pain [] HENT: Denies nasal congestion or sore throat [] Respiratory: Denies cough or shortness of breath [] Cardiovascular: No chest pain or palpitations[] GI: Denies abdominal pain, nausea, vomiting, bloody stools or diarrhea [] : Denies dysuria or hematuria [] Musculoskeletal: See history of present illness[] Integument: Denies rash or skin lesions [] Neurologic: Denies headache, focal weakness or sensory changes [] Endocrine: Denies polyuria or polydipsia [] All other systems were reviewed and found to be within normal limits, except as documented in this note. Current Medications Current Medications Current Medications Medications (Trade) Dose Ordered Sig/Anita Start Time Stop Time Status Last Admin Dose Admin Orphenadrine Citrate (Norflex) 60 mg 1X ONCE 06/25/19 07:30 06/25/19 07:31 UNV Allergies Allergies Allergies Coded Allergies Type Severity Reaction Last Updated Verified Sulfa (Sulfonamide Antibiotics) Allergy Intermediate 05/08/19 No sulfamethoxazole Allergy Intermediate 05/08/19 No trimethoprim Allergy Intermediate 05/08/19 No I S O L A T I O N *CONTACT* Allergy Unknown 05/09/19 Yes Physical Exam Physical Exam Constitutional: Well developed, well nourished, mild discomfort, non-toxic appearance. [] HENT: Normocephalic, atraumatic, bilateral external ears normal, oropharynx moist, no oral exudates, nose normal. [] Eyes: PERRLA, EOMI, conjunctiva normal, no discharge. [] Neck: Normal range of motion, no tenderness, supple, no stridor. [] Cardiovascular:Heart rate regular rhythm, no murmur [] Lungs & Thorax: Bilateral breath sounds clear to auscultation [] Abdomen: Bowel sounds normal, soft, no tenderness, no masses, no pulsatile masses. [] Skin: Warm, dry, no erythema, no rash. [] Back: No midline tenderness. Bilateral lower paraspinal muscle tenderness and exquisite tenderness over the right sciatic notch. This re-creates the discomfort. She is able to roll onto her side without any significant difficulty. She is distally neurovascularly intact. No CVA tenderness. [] Extremities: No tenderness, no cyanosis, no clubbing, ROM intact, no edema. [] Neurologic: Alert and oriented X 3, normal motor function, normal sensory function, no focal deficits noted. [] Psychologic: Affect normal, judgement normal, mood normal. [] EKG EKG [] Radiology/Procedures Radiology/Procedures PROCEDURE: CT LUMBAR SPINE WO CONTRAST Examination: CT lumbar spine without contrast HISTORY: History of low back pain COMPARISON: None available TECHNIQUE: Axial CT images of the lumbar spine were performed without contrast. Coronal and sagittal reformats are performed. Exposure: One or more of the following individualized dose reduction techniques were utilized for this examination: 1. Automated exposure control 2. Adjustment of the mA and/or kV according to patient size 3. Use of iterative reconstruction technique FINDINGS: There is minimal inferior endplate compression change of L1 vertebral body. Moderate disc bulge identified at L1-L2, L2-L3 L4-L5 and L5-S1 vertebral levels causing anterior thecal sac impressions with spinal canal stenosis most at L4-L5 vertebral level. Mild to moderate bilateral neural foraminal narrowing identified at these levels. The bilateral facets are well aligned. Moderate intervertebral disc height loss identified in the lumbar spine. Severe atrophic change of right kidney with the bilateral intrarenal collecting system calculi identified with largest measuring 4 mm in the left kidney. Aortobiiliac graft identified. IMPRESSION: 1. Multilevel degenerative changes lumbar spine most at L4-L5 vertebral levels. 2. Minimal inferior endplate compression change of L1 vertebral body probably chronic.[] Course & Med Decision Making Course & Med Decision Making Pertinent Labs and Imaging studies reviewed. (See chart for details) Emergency department course: Patient arrived, was placed in bed, and tolerated exam well. She was given parenteral muscle relaxants. She was transported to and from radiology with any complications. Patient refuses to provide a urine sample, she states, "This is not a urinary tract infection. I have none of the symptoms of one." She was feeling better after the muscle relaxers. Findings and plan were discussed with patient and family who voiced understanding. She was discharged in improved condition. Medical decision making: Patient was not given NSAIDs for pain management due to being on several toe and potentially having surgery in the not too distant future. Patient is currently on a low-dose, 5 mg, of prednisone daily as part of a taper post her brain surgery in the fall. There is no evidence of an acute fracture or subluxation. No evidence of cauda equina syndrome.[] Dragon Disclaimer Dragon Disclaimer This electronic medical record was generated, in whole or in part, using a voice recognition dictation system. Departure Departure: Impression: Primary Impression: Back pain with sciatica Disposition: 01 HOME, SELF-CARE Condition: IMPROVED Referrals: CIRO AUSTIN MD (PCP) Follow-up within 2 days Patient Instructions: Back Pain, Adult, Sciatica with [facility] Additional Instructions: Follow-up with your regular doctor in 2 days. Continue your medicines as prescribed. Take the new medicine as prescribed. Apply warm compresses for 15 minutes at a time, at least 4 times a day. Return to the ER if worsening pain, weakness, loss of bowel or bladder control, or any other concerns. Scripts Orphenadrine Citrate (ORPHENADRINE CITRATE) 100 Mg Tablet.er 100 MG PO BID for BACK PAIN, #20 TAB.SR Prov: YAYO VICENTE DO 06/25/19 YAYO VICENTE DO Jun 25, 2019 07:34
[2019-06-25] MEDS ORDERED: ZOLP10TA PO (07:56)
[2019-06-25] MEDS ORDERED: CARV25TA2 PO (07:56)
[2019-06-25] MEDS ORDERED: RIVA15TA PO (07:56)
--- NOTE | 2019-06-25 08:12 | RAD ---
Examination: CT lumbar spine without contrast HISTORY: History of low back pain COMPARISON: None available TECHNIQUE: Axial CT images of the lumbar spine were performed without contrast. Coronal and sagittal reformats are performed. Exposure: One or more of the following individualized dose reduction techniques were utilized for this examination: 1. Automated exposure control 2. Adjustment of the mA and/or kV according to patient size 3. Use of iterative reconstruction technique FINDINGS: There is minimal inferior endplate compression change of L1 vertebral body. Moderate disc bulge identified at L1-L2, L2-L3 L4-L5 and L5-S1 vertebral levels causing anterior thecal sac impressions with spinal canal stenosis most at L4-L5 vertebral level. Mild to moderate bilateral neural foraminal narrowing identified at these levels. The bilateral facets are well aligned. Moderate intervertebral disc height loss identified in the lumbar spine. Severe atrophic change of right kidney with the bilateral intrarenal collecting system calculi identified with largest measuring 4 mm in the left kidney. Aortobiiliac graft identified. IMPRESSION: 1. Multilevel degenerative changes lumbar spine most at L4-L5 vertebral levels. 2. Minimal inferior endplate compression change of L1 vertebral body probably chronic. Electronically signed by: Byron Rudolph MD (06/25/2019 8:09 AM) [facility]
[2019-06-25] MEDS ORDERED: ORPH-16 PO (08:46)
== END 2019-06-25 08:56 | disposition home or self-care (01) ==
LOC: ER 07:18
DX: M54.41 Lumbago with sciatica, right side (principal); F41.9 Anxiety disorder, unspecified; M19.90 Unspecified osteoarthritis, unspecified site; I25.10 Atherosclerotic heart disease of native coronary artery without angina pectoris; I11.0 Hypertensive heart disease with heart failure; I50.9 Heart failure, unspecified; E78.00 Pure hypercholesterolemia, unspecified; E03.9 Hypothyroidism, unspecified; F17.210 Nicotine dependence, cigarettes, uncomplicated; J44.9 Chronic obstructive pulmonary disease, unspecified; Z86.2 Personal history of diseases of the blood and blood-forming organs and certain disorders involving the immune mechanism; Z88.2 Allergy status to sulfonamides; Z88.1 Allergy status to other antibiotic agents; Z91.041 Radiographic dye allergy status
CPT/HCPCS: 72131; 96372; 99284; J2360

== ENCOUNTER 2019-06-28 19:06 | Inpatient (IN) | payer MEDICARE, OTHER ==
[~2019-06-28] VITALS: Ht 162.6 cm; Wt 67.3 kg
[~2019-06-28 19:06] MED LIST changes: +CARV25TA2 PO; +ORPH-16 PO; +RIVA15TA PO; +ZOLP10TA PO
[2019-06-28] MEDS ORDERED: methylPREDNISolone SOD SUCC PF 125 MG/2 ML VIAL. IV ONE (20:00)
[2019-06-28] MEDS ORDERED: IPRATRPIUM/ALBUTEROL 0.5/2.5MG 3 ML NEBU. NEB ONE (20:00)
--- NOTE | 2019-06-28 20:02 | PHYS DOC ---
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 The patient started to have increased shortness of breath yesterday. She has been using an albuterol nebulizer 3 times a day for the last 4 days. She states that it is not helping and her breathing seems to be worse. She believes that she is wheezing. She's been told she has COPD, but has never had a formal COPD pulmonary evaluation. 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 She is not on oxygen. She is already on oral steroids. She has a history of A. fib and 2 stents. She denies chest pain. She denies fever or chills. Review of Systems Review of Systems Constitutional: Denies fever or chills [] Eyes: Denies change in visual acuity, redness, or eye pain [] HENT: Denies nasal congestion or sore throat [] Respiratory: Cough with shortness of breath [] Cardiovascular: No additional information not addressed in HPI [] GI: Denies abdominal pain, nausea, vomiting, bloody stools or diarrhea [] : Denies dysuria or hematuria [] Musculoskeletal: Denies back pain or joint pain [] Integument: Denies rash or skin lesions [] Neurologic: Denies headache, focal weakness or sensory changes [] Endocrine: Denies polyuria or polydipsia [] All other systems were reviewed and found to be within normal limits, except as documented in this note. Allergies Allergies Allergies Coded Allergies Type Severity Reaction Last Updated Verified Sulfa (Sulfonamide Antibiotics) Allergy Intermediate 05/08/19 No sulfamethoxazole Allergy Intermediate 05/08/19 No trimethoprim Allergy Intermediate 05/08/19 No Physical Exam Physical Exam Constitutional: Well developed, well nourished, mild acute distress, non-toxic appearance. [] HENT: Normocephalic, atraumatic, bilateral external ears normal, oropharynx moist, no oral exudates, nose normal. [] Eyes: PERRLA, EOMI, conjunctiva normal, no discharge. [] Neck: Normal range of motion, no tenderness, supple, no stridor. [] Cardiovascular:Heart rate regular rhythm, no murmur [] Lungs & Thorax: Bilateral diffuse expiratory wheezing.[] Abdomen: Bowel sounds normal, soft, no tenderness, no masses, no pulsatile masses. [] Skin: Warm, dry, no erythema, no rash. [] Back: No tenderness, no CVA tenderness. [] Extremities: No tenderness, no cyanosis, no clubbing, ROM intact, no edema. [] Neurologic: Alert and oriented X 3, normal motor function, normal sensory function, no focal deficits noted. [] Psychologic: Affect normal, judgement normal, mood normal. [] Current Patient Data Vital Signs Vital Signs Date Time Temp Pulse Resp B/P (MAP) Pulse Ox O2 Delivery O2 Flow Rate FiO2 06/28/19 19:10 125 22 96 Room Air EKG EKG Irregular rhythm, rate 118, A. fib, normal axis, no ST elevations or depressions.[] Radiology/Procedures Radiology/Procedures [] Course & Med Decision Making Course & Med Decision Making Pertinent Labs and Imaging studies reviewed. (See chart for details) The patient has requested to take her evening medications which are Keppra, metoprolol, and Xarelto. I believe this is reasonable and I given the patient permission to take her home meds. The metoprolol likely help with her heart rate. The patient's lab results are remarkable for a pro BNP of over 5000. Review of her chart shows that this is typical for her. This is a COPD e xacerbation. Her single view chest does not show any focal consolidation to suggest pneumonia. I have treated her with 125 of Solu-Medrol and DuoNeb treatment. She'll get an additional DuoNeb treatment and albuterol treatment. I will admit the patient to the hospital for her COPD. I spoke with Dr. De La Torre and he has accepted the patient for admission. [] Dragon Disclaimer Dragon Disclaimer This electronic medical record was generated, in whole or in part, using a voice recognition dictation system. Departure Departure: Impression: Primary Impression: COPD exacerbation Disposition: ADMITTED INPATIENT Admitting Physician: Eriberto De La Torre Condition: STABLE Referrals: ERIBERTO DE LA TORRE MD (PCP) SAPNA WHITLEY DO Jun 28, 2019 20:02
[2019-06-28 20:30] LABS: BASO # 0.1 x10^3/uL (0.0-0.2); BASO % 1 % (0-3); EOS # 0.1 x10^3/uL (0.0-0.7); EOS % 1 % (0-3); HEMATOCRIT 37.7 % (36.0-47.0); HEMOGLOBIN 12.2 g/dL (12.0-15.5); LYMPH # 1.6 x10^3/uL (1.0-4.8); LYMPH % 13 % (24-48); MEAN CORPUSCULAR HEMOGLOBIN 28 pg (25-35); MEAN CORPUSCULAR HGB CONC 32 g/dL (31-37); MEAN CORPUSCULAR VOLUME 88 fL (79-100); MONO % 8 % (0-9); NEUT # 9.5 x10^3uL (1.8-7.7); NEUT % 77 % (31-73); PLATELET COUNT 322 x10^3/uL (140-400); WHITE BLOOD COUNT 12.3 x10^3/uL (4.0-11.0)
[2019-06-28 20:36] LABS: CALCIUM 9.6 mg/dL (8.5-10.1); CREATININE 1.1 mg/dL (0.6-1.0); GFR 48.7; POTASSIUM 4.8 mmol/L (3.5-5.1)
[2019-06-28 20:49] LABS: ALBUMIN 3.5 g/dL (3.4-5.0); ALBUMIN/GLOBULIN RATIO 1.1 (1.0-1.7); TOTAL BILIRUBIN 0.4 mg/dL (0.2-1.0); TOTAL PROTEIN 6.6 g/dL (6.4-8.2)
[2019-06-28 21:40] LABS: BILIRUBIN,URINE NEG (NEG); CLARITY,URINE CLEAR; COLOR,URINE YELLOW; GLUCOSE,URINE NEG (NEG)
[2019-06-28 21:41] LABS: BACTERIA,URINE 0 /HPF (0-FEW); NITRITE,URINE NEG (NEG); RBC,URINE 0 /HPF (0-2); SQUAMOUS EPITHELIAL CELL,UR MOD /LPF; UROBILINOGEN,URINE 0.2 mg/dL (0.2 mg/dL); WBC,URINE OCC /HPF (0-4)
--- NOTE | 2019-06-28 21:48 | RAD ---
Examination: PORTABLE CHEST 1V History: Shortness of breath Comparison/Correlation: 05/08/2019 CTA of the chest Findings: Portable frontal view of the chest was obtained. Heart size is borderline. No infiltrate, pleural effusion, or pneumothorax. Calcified granuloma involves the right upper lung. Subtle interstitial thickening of the lung kinney diffusely is nonspecific and similar pulmonary correlation previous exams. Impression: No focal infiltrate. Electronically signed by: Clayton Milton MD (06/28/2019 9:45 PM) [facility]
[2019-06-28] MEDS ORDERED: ONDANSETRON PF 4 MG/2 ML VIAL. IV PRN (22:15)
--- NOTE | 2019-06-28 22:55 | NUR ---
Admission Note: Pt transported via EMS from ED to room 123. Pt able to move self over to bed w/minimal assistance. VSS except for elevated HR. Pt c/o right ankle pain s/p fracture this past Monday 06/25 (seeing ortho this week for consult). Breathing is unlabored at this time. Pt states she feels much better. Called physician for pain medication and metoprolol d/t elevated HR.
--- NOTE | 2019-06-28 23:02 | EKG ---
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
[2019-06-28 23:04] VITALS: BP 158/110
[2019-06-29] MEDS ORDERED: oxyCODONE/APAP 5/325 1 TAB TABLET PO PRN
[2019-06-29] MEDS: METOPROLOL TART IMMED RELEASE 50 MG TABLET PO SCH ×2 (00:20→08:53)
[2019-06-29 06:29] VITALS: BP 114/92
[2019-06-29 07:54] LABS: BASO % 0 % (0-3); EOS % 0 % (0-3); HEMATOCRIT 40.3 % (36.0-47.0); HEMOGLOBIN 12.7 g/dL (12.0-15.5); LYMPH # 0.5 x10^3/uL (1.0-4.8); LYMPH % 5 % (24-48); MEAN CORPUSCULAR HEMOGLOBIN 28 pg (25-35); MEAN CORPUSCULAR HGB CONC 32 g/dL (31-37); MEAN CORPUSCULAR VOLUME 88 fL (79-100); MONO # 0.2 x10^3/uL (0.0-1.1); MONO % 2 % (0-9); NEUT # 9.5 x10^3uL (1.8-7.7); NEUT % 93 % (31-73); PLATELET COUNT 329 x10^3/uL (140-400); RED BLOOD COUNT 4.57 x10^6/uL (3.50-5.40); RED CELL DISTRIBUTION WIDTH 17.5 % (11.5-14.5); WHITE BLOOD COUNT 10.2 x10^3/uL (4.0-11.0)
[2019-06-29] MEDS ORDERED: IPRATRPIUM/ALBUTEROL 0.5/2.5MG 3 ML NEBU. NEB SCH (08:00)
[2019-06-29 08:08] LABS: ALBUMIN 3.4 g/dL (3.4-5.0); CALCIUM 9.1 mg/dL (8.5-10.1); CREATININE 1.4 mg/dL (0.6-1.0); GFR 36.9; POTASSIUM 5.2 mmol/L (3.5-5.1); TOTAL BILIRUBIN 0.4 mg/dL (0.2-1.0); TOTAL PROTEIN 6.7 g/dL (6.4-8.2)
[2019-06-29] MEDS ORDERED: ALBU2.5V8 IH (08:52)
--- NOTE | 2019-06-29 09:00 | NUR ---
Dr De La Torre here to see patient, orders and labs placed. Notified physician that patient is wanting to discharge today due to having an appointment. Plan is to give antibiotic and dose of IV lasix. Will make follow up with PCP in 1 week. Patient states she has an appointment on the 19 of july for cardioversion. States it was suppose to be sooner but Dr Simons is out of the country.
[2019-06-29] MEDS ORDERED: ALBUTEROL SULFATE 2.5 MG/3 ML NEBU. IH PRN (09:15)
[2019-06-29] MEDS ORDERED: ATORVASTATIN CALCIUM 20 MG TABLET PO SCH (09:15)
[2019-06-29] MEDS ORDERED: ZOLPIDEM 5 MG TABLET. PO PRN (09:15)
[2019-06-29] MEDS ORDERED: CETIRIZINE HCL 10 MG TABLET PO SCH (09:15)
[2019-06-29] MEDS ORDERED: FUROSEMIDE 20 MG/2 ML VIAL IVP SCH (09:15)
[2019-06-29] MEDS ORDERED: DOCUSATE SODIUM 100 MG CAPSULE PO PRN (09:15)
[2019-06-29] MEDS ORDERED: predniSONE 20 MG TABLET PO SCH (09:15)
[2019-06-29] MEDS ORDERED: ISOSORBIDE MONONITRATE ER 30 MG TAB.ER.24H PO SCH (09:15)
[2019-06-29] MEDS ORDERED: LISINOPRIL 20 MG TABLET PO SCH (09:15)
[2019-06-29] MEDS ORDERED: LEVOTHYROXINE 75 MCG TABLET PO SCH (09:15)
[2019-06-29] MEDS ORDERED: DEXTROSE 50% 25 GM / 50ML DISP.SYRIN. IV PRN (09:30)
[2019-06-29] MEDS ORDERED: AZITHROMYCIN 250 MG TABLET. PO ONE (09:30)
[2019-06-29] MEDS ORDERED: INSULIN LISPRO 300 UNITS/3 ML VIAL. SQ SCH (09:40)
--- NOTE | 2019-06-29 10:11 | HP ---
ADMIT DATE: 06/28/2019 HISTORY OF PRESENT ILLNESS: A 74-year-old female came in through the Emergency Room late last night. Apparently, she was having increased shortness of breath for the last 3-4 days, becoming increasingly worse despite using multiple inhalers. She was still not able to get her breath, came in and she was noted to be wheezing and possible exacerbation of COPD. Chest x-ray was negative. She has been treated for a pulmonary embolus, but she is on Xarelto for that. The patient otherwise is not on oxygen. She is already on oral steroids. PAST MEDICAL HISTORY: Chronic atrial fibrillation. She has had coronary artery disease with 2 stents. She still smokes and encouraged to stop smoking. Degenerative arthritis, arrhythmia, bronchitis, coronary artery disease. She has had a history of CHF, COPD, DVT, hypercholesterolemia, hypertension, hypothyroidism, previous [place], MRSA, renal disease and seizures. The patient also has an aortic fem bypass, fracture of the right ankle on 06/25/2019. She has had previous histories of pneumonia, hysterectomy, hypothyroidism, [id number] history of smoking, anemia, and brain tumor. The patient has had her immunizations of tetanus, influenza, and pneumococcal vaccinations up-to-date as well as MRSA. FAMILY HISTORY: Heart attack. ALLERGIES: ____ AND TRIMETHOPRIM. SOCIAL HISTORY: The patient is a heavy smoker, although has been encouraged to stop smoking, [id number] history of such. REVIEW OF SYSTEMS: The patient denies any headaches, visual change, blurred vision, double vision. Does have shortness of breath, but no chest pain, does have orthopnea. Does have palpitations, abdominal pain negative. No nausea or vomiting. Does have some chilling, however. EXTREMITIES: Without clubbing, cyanosis, or edema. NEUROLOGIC: Intact. PHYSICAL EXAMINATION: GENERAL: This is a pleasant white female looking older than stated age. MEDICATIONS: Have been reviewed and reconciled in the chart. Usually include Abbey, albuterol, Xarelto 15, Lipitor, isosorbide 30, carvedilol 3.125 b.i.d., lisinopril 20, Percocet, Zyloprim, docusate, Keppra 500, and metoprolol. OBJECTIVE: VITAL SIGNS: Blood pressure 114/92, respiratory rate 18, pulse 91, afebrile, oxygen saturation was down to 92, is up to 94%-96% now. HEENT: The patient's head was atraumatic, normocephalic. Eyes: PERRLA without jaundice. The mouth and throat were normal. NECK: Supple, without JVD, carotid bruits. No thyromegaly. LUNGS: Diminished. Marked wheezing throughout. CARDIOVASCULAR: Regular sinus rhythm, S1, S2, without murmur, rub, thrill, or extra heart sounds. ABDOMEN: The patient's abdomen is soft, nontender, no rebound or guarding. Positive bowel sounds. No hepatosplenomegaly was noted. EXTREMITIES: No clubbing, cyanosis, or edema. There is some swelling to the legs around the feet,+1 pitting edema. She has got a Cam walker on the right leg consistent with her fracture there. ASSESSMENT AND PLAN: In any case, the patient will be admitted for further evaluation of acute exacerbation of chronic obstructive pulmonary disease with probable bronchitis, acute respiratory distress, history of chronic obstructive pulmonary disease chronic, history of brain tumor, history of vascular disease, history of tobacco abuse, again encouraged to stop smoking. She is on Keppra for her seizure activity. We will continue to monitor the patient accordingly. We will give her a dose of Lasix as well as prednisone, aggressive pulmonary toilet, some antibiotics. The patient wants to be discharged to see her orthopedic doctor for her fracture of her right ankle. Apparently, it is noted that it occurred a couple of days ago and she needs to see the orthopod to see whether or not it needs to be a cast at all. However, the patient has a benign brain tumor of the frontal lobe as well and brain surgery. LABORATORY DATA: It looks like creatinine function. She has chronic kidney disease stage 3. She has some elevated blood sugars. Her BNP was 5000, so it could be that she is in acute on top of chronic diastolic heart failure as well. No recent echo has been done and none available. CIRO AUSTIN MD DR: CHRISTIAN/kat JOB#: [id number] / [id number]
--- NOTE | 2019-06-29 10:29 | NUR ---
IP: Pt has a hx of + mrsa screens since 2018 with most recent on 05/08/19. Pt to be in contact precautions until there are 2 negative screens 7 days apart.
[2019-06-29 10:53] LABS: INFLUENZA A PATIENT NEGATIVE (NEGATIVE); INFLUENZA B PATIENT NEGATIVE (NEGATIVE)
[2019-06-29 11:54] VITALS: BP 119/61
--- NOTE | 2019-06-29 12:55 | NUR ---
Spoke with Dr De La Torre in regards to patient discharging from facility. Patient states that he explained to physician that she needs to be discharged today in order to be fitted for her cast due to a recent fracture to ankle. Patient stated he would have her discharged by noon today. Phone call placed to Dr De La Torre.
--- NOTE | 2019-06-29 13:17 | NUR ---
DISCHARGE INSTRUCTIONS GIVEN TO PATIENT AND FAMILY MEMBER, VERBALIZED DC INSTRUCTIONS. IV REMOVED. PATIENT AMBULATED TO [place] VIA WHEELCHAIR TO GO TO [facility] FOR ORTH APPT FOR CAST PLACEMENT. PATIENT ADVISED TO GO TO ER IF HAS INCREASED SOA, DIFFICULTY BREATHING OR WORSENING OF SYMPTOMS.
[2019-06-29] MEDS ORDERED: CARVEDILOL 3.125 MG TABLET PO SCH (17:00)
[2019-06-29] MEDS ORDERED: RIVAROXABAN 15 MG TABLET. PO SCH (21:00)
[2019-06-29] MEDS ORDERED: LACTOBACILLUS RHAMNOSUS GG 1 CAPSULE. PO SCH (21:00)
[2019-06-29 23:07] LABS: HEMOGLOBIN A1C 7.7 % (4.8-5.6)
== END 2019-06-29 13:23 | disposition home or self-care (01) | DRG 190 ==
LOC: ER 19:06 → 1 SOUTH 21:40
PROVIDERS: ADMIT Family Medicine; ATTEND Family Medicine
DX: J44.1 Chronic obstructive pulmonary disease with (acute) exacerbation (principal); I50.33 Acute on chronic diastolic (congestive) heart failure; I48.20 Chronic atrial fibrillation, unspecified; I13.0 Hypertensive heart and chronic kidney disease with heart failure and stage 1 through stage 4 chronic kidney disease, or unspecified chronic kidney disease; I11.0 Hypertensive heart disease with heart failure; F41.9 Anxiety disorder, unspecified; M19.90 Unspecified osteoarthritis, unspecified site; N18.3 Chronic kidney disease, stage 3 (moderate); I25.10 Atherosclerotic heart disease of native coronary artery without angina pectoris; E78.00 Pure hypercholesterolemia, unspecified; J40 Bronchitis, not specified as acute or chronic; I25.2 Old myocardial infarction; Z90.710 Acquired absence of both cervix and uterus; Z88.8 Allergy status to other drugs, medicaments and biological substances; Z95.5 Presence of coronary angioplasty implant and graft; Z79.01 Long term (current) use of anticoagulants; Z87.01 Personal history of pneumonia (recurrent); Z86.011 Personal history of benign neoplasm of the brain; Z82.49 Family history of ischemic heart disease and other diseases of the circulatory system; F17.200 Nicotine dependence, unspecified, uncomplicated; E03.9 Hypothyroidism, unspecified
CPT/HCPCS: 36415; 71045; 80053; 81001; 82306; 83036; 83605; 83880; 84145; 84484; 85025; 87804; 93005; 94640; 96374; J0456; J0696; J1815; J2930; J7512; J7620; 99285-25

== ENCOUNTER 2019-06-30 20:57 | Inpatient (IN) | payer MEDICARE, OTHER ==
[~2019-06-30] VITALS: Ht 162.6 cm; Wt 63.2 kg
[2019-06-30] MEDS ORDERED: ALBUTEROL SULFATE 2.5 MG/3 ML NEBU. ONE (21:10)
[2019-06-30] MEDS ORDERED: IPRATRPIUM/ALBUTEROL 0.5/2.5MG 3 ML NEBU. ONE (21:10)
[2019-06-30 21:42] LABS: BASO # 0.1 x10^3/uL (0.0-0.2); BASO % 0 % (0-3); EOS # 0.1 x10^3/uL (0.0-0.7); EOS % 0 % (0-3); HEMATOCRIT 37.7 % (36.0-47.0); HEMOGLOBIN 12.2 g/dL (12.0-15.5); LYMPH % 12 % (24-48); MEAN CORPUSCULAR HEMOGLOBIN 28 pg (25-35); MEAN CORPUSCULAR HGB CONC 32 g/dL (31-37); MEAN CORPUSCULAR VOLUME 87 fL (79-100); MONO # 1.2 x10^3/uL (0.0-1.1); MONO % 7 % (0-9); NEUT # 13.7 x10^3uL (1.8-7.7); NEUT % 80 % (31-73); PLATELET COUNT 323 x10^3/uL (140-400); RED BLOOD COUNT 4.35 x10^6/uL (3.50-5.40); RED CELL DISTRIBUTION WIDTH 17.3 % (11.5-14.5); WHITE BLOOD COUNT 17.1 x10^3/uL (4.0-11.0)
--- NOTE | 2019-06-30 21:44 | PHYS DOC ---
Past History Past Medical History: Anemia, Angina, Anxiety, Arthritis, Arrhythmia, Bronchitis, CAD, CHF, COPD, DVT, High Cholesterol, Hypertension, Hypothyroid, [place], MRSA, Renal Disease, Seizure, Other Additional Past Medical Histor: brain tumor; rt [employer] to distal SFA occlusion and occlusion of distal tibial Past Surgical History: Cancer Surgery, Hysterectomy, Other Additional Past Surgical Histo: brain sx on 03/15 for benign brain tumor frontal lobe; aortobifem bypass Smoking: Cigarettes Alcohol Use: None Drug Use: None Adult General Chief Complaint Chief Complaint: SHORTNESS OF BREATH HPI HPI 74-year-old female returns emergency room with shortness of breath. The patient was recently admitted to this facility. I saw her a few days ago. She was admitted for COPD exacerbation. She stayed for a couple days was feeling better and then went home. She presents tonight with the same symptoms of shortness of breath, wheezing, and generally feeling terrible. She was not discharged on Lasix. He denies chest pain or diaphoresis. She has a productive cough. Patient is a smoker. Review of Systems Review of Systems Constitutional: Fatigue. Denies fever or chills [] Eyes: Denies change in visual acuity, redness, or eye pain [] HENT: Denies nasal congestion or sore throat [] Respiratory: Cough with shortness of breath [] Cardiovascular: No additional information not addressed in HPI [] GI: Denies abdominal pain, nausea, vomiting, bloody stools or diarrhea [] : Denies dysuria or hematuria [] Musculoskeletal: Denies back pain or joint pain [] Integument: Denies rash or skin lesions [] Neurologic: Denies headache, focal weakness or sensory changes [] Endocrine: Denies polyuria or polydipsia [] All other systems were reviewed and found to be within normal limits, except as documented in this note. Current Medications Current Medications Current Medications Medications (Trade) Dose Ordered Sig/Anita Start Time Stop Time Status Last Admin Dose Admin Albuterol Sulfate (Ventolin) 2.5 mg STK-MED ONCE 06/30/19 21:10 06/30/19 21:11 DC Albuterol/ Ipratropium (Duoneb) 3 ml STK-MED ONCE 06/30/19 21:10 06/30/19 21:11 DC Furosemide (Lasix) 40 mg 1X ONCE 06/30/19 21:45 06/30/19 21:46 Methylprednisolone Sodium Succinate (SOLU-Medrol 125MG VIAL) 125 mg 1X ONCE 06/30/19 21:45 06/30/19 21:46 Allergies Allergies Allergies Coded Allergies Type Severity Reaction Last Updated Verified Sulfa (Sulfonamide Antibiotics) Allergy Intermediate 05/08/19 No sulfamethoxazole Allergy Intermediate 05/08/19 No trimethoprim Allergy Intermediate 05/08/19 No I S O L A T I O N *CONTACT* Allergy Unknown 06/29/19 Yes Physical Exam Physical Exam Constitutional: Well developed, well nourished, moderate acute distress, non- toxic appearance. [] HENT: Normocephalic, atraumatic, bilateral external ears normal, oropharynx moist, no oral exudates, nose normal. [] Eyes: PERRLA, EOMI, conjunctiva normal, no discharge. [] Neck: Normal range of motion, no tenderness, supple, no stridor. [] Cardiovascular:Heart rate regular rhythm, no murmur [] Lungs & Thorax: Bilateral breath sounds with expiratory wheezing throughout[] Abdomen: Bowel sounds normal, soft, no tenderness, no masses, no pulsatile masses. [] Skin: Warm, dry, no erythema, no rash. [] Back: No tenderness, no CVA tenderness. [] Extremities: No tenderness, no cyanosis, no clubbing, ROM intact, no edema. [] Neurologic: Alert and oriented X 3, normal motor function, normal sensory function, no focal deficits noted. [] Psychologic: Affect normal, judgement normal, mood normal. [] Current Patient Data Vital Signs Vital Signs Date Time Temp Pulse Resp B/P (MAP) Pulse Ox O2 Delivery O2 Flow Rate FiO2 06/30/19 21:14 94.9 128 32 98 Nasal Cannula EKG EKG [] Radiology/Procedures Radiology/Procedures [] Course & Med Decision Making Course & Med Decision Making Pertinent Labs and Imaging studies reviewed. (See chart for details) The patient's labs are significant for slightly elevated troponin of 0.06. Her EKG does not show ST elevation. The patient is very uncomfortable breathing. She has diffuse wheezing. I ordered 125 of Solu-Medrol as well as 40 of Lasix IV. For her comfort, we have laced the patient on BiPAP due to her respiratory rate and discomfort. Her ABG shows pH 7.396, PCO2 43.9, PO2 64. I spoke with Dr. De La Torre and he is agreed to admit the patient for further management. 37 minutes of critical care time was spent on this patient exclusive of other billable procedures. [] Dragon Disclaimer Dragon Disclaimer This electronic medical record was generated, in whole or in part, using a voice recognition dictation system. Departure Departure: Impression: Primary Impression: Acute respiratory distress Additional Impressions: Elevated troponin I level COPD exacerbation Disposition: 09 ADMITTED INPATIENT Admitting Physician: Eriberto De La Torre Condition: STABLE Referrals: ERIBERTO DE LA TORRE MD (PCP) Problem Qualifiers SAPNA WHITLEY DO Jun 30, 2019 21:44
[2019-06-30] MEDS ORDERED: methylPREDNISolone SOD SUCC PF 125 MG/2 ML VIAL. IV ONE (21:45)
[2019-06-30] MEDS ORDERED: FUROSEMIDE 40 MG/4 ML VIAL IVP ONE (21:45)
[2019-06-30 21:56] LABS: CALCIUM 9.4 mg/dL (8.5-10.1); CREATININE 1.2 mg/dL (0.6-1.0)
[2019-06-30 22:02] LABS: ALBUMIN 3.6 g/dL (3.4-5.0); ALBUMIN/GLOBULIN RATIO 1.3 (1.0-1.7); TOTAL BILIRUBIN 0.3 mg/dL (0.2-1.0); TOTAL PROTEIN 6.4 g/dL (6.4-8.2)
[2019-06-30 22:14] LABS: POTASSIUM 5.4 mmol/L (3.5-5.1)
[2019-06-30 22:19] LABS: % BANDS 1 % (0-9); % LYMPHS 8 % (24-48); % MONOS 7 % (0-10); % SEGS 84 % (35-66)
[2019-06-30 22:20] LABS: ANISOCYTOSIS SLIGHT; BURR CELLS PRESENT; OVALOCYTES PRESENT; PLT ESTIMATE ADEQUATE (ADEQUATE); POIKILOCYTOSIS SLIGHT
[2019-06-30 22:35] LABS: INFLUENZA A PATIENT NEGATIVE (NEGATIVE); INFLUENZA B PATIENT NEGATIVE (NEGATIVE)
[2019-06-30 22:44] LABS: BGAS PH 7.4 (7.35-7.45)
[2019-06-30] MEDS ORDERED: ONDANSETRON PF 4 MG/2 ML VIAL. IV PRN (23:00)
--- NOTE | 2019-07-01 00:06 | NUR ---
The patient, KERMIT SALAMANCA, 74 y/o, F admitted by CIRO AUSTIN MD, was given written information regarding hospital policies, unit procedures and contact persons. Valuables were checked and logged. Call light at bedside. Will continue to monitor.
--- NOTE | 2019-07-01 00:18 | RAD ---
CHEST AP ONLY Clinical Indication: Shortness of breath Comparison: None. Findings: Portable upright frontal view chest was obtained. Heart size is borderline. Lungs are clear. There is no pneumothorax. No pleural effusion is appreciated. No acute bone abnormality. IMPRESSION: No acute cardiopulmonary process. Electronically signed by: Clayton Milton MD (07/01/2019 12:15 AM) [facility]
[2019-07-01 00:56] VITALS: BP 157/87
[2019-07-01 01:58] LABS: BILIRUBIN,URINE NEG (NEG); CLARITY,URINE CLEAR; COLOR,URINE STRAW; GLUCOSE,URINE NEG (NEG)
[2019-07-01 01:59] LABS: BACTERIA,URINE FEW /HPF (0-FEW); NITRITE,URINE NEG (NEG); RBC,URINE 0 /HPF (0-2); SQUAMOUS EPITHELIAL CELL,UR FEW /LPF; UROBILINOGEN,URINE 0.2 mg/dL (0.2 mg/dL); WBC,URINE 0 /HPF (0-4)
--- NOTE | 2019-07-01 02:49 | EKG ---
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
[2019-07-01] MEDS ORDERED: IPRATRPIUM/ALBUTEROL 0.5/2.5MG 3 ML NEBU. ONE (04:05)
[2019-07-01 05:15] LABS: BASO % 0 % (0-3); EOS % 0 % (0-3); HEMATOCRIT 36.5 % (36.0-47.0); HEMOGLOBIN 11.9 g/dL (12.0-15.5); LYMPH # 0.3 x10^3/uL (1.0-4.8); LYMPH % 3 % (24-48); MEAN CORPUSCULAR HEMOGLOBIN 28 pg (25-35); MEAN CORPUSCULAR HGB CONC 33 g/dL (31-37); MEAN CORPUSCULAR VOLUME 86 fL (79-100); MONO # 0.2 x10^3/uL (0.0-1.1); MONO % 2 % (0-9); NEUT # 11.3 x10^3uL (1.8-7.7); NEUT % 96 % (31-73); PLATELET COUNT 303 x10^3/uL (140-400); RED BLOOD COUNT 4.26 x10^6/uL (3.50-5.40); RED CELL DISTRIBUTION WIDTH 17.1 % (11.5-14.5); WHITE BLOOD COUNT 11.8 x10^3/uL (4.0-11.0)
[2019-07-01 05:54] VITALS: BP 163/109
[2019-07-01 06:22] LABS: CREATININE 1.1 mg/dL (0.6-1.0); GFR 48.7; POTASSIUM 4.5 mmol/L (3.5-5.1)
[2019-07-01] MEDS ORDERED: MONTELUKAST 10 MG TABLET. PO SCH (07:00)
[2019-07-01] MEDS ORDERED: IPRATRPIUM/ALBUTEROL 0.5/2.5MG 3 ML NEBU. NEB SCH ×2 (08:00→12:00)
[2019-07-01] MEDS ORDERED: METO50TA6 PO (08:54)
[2019-07-01] MEDS ORDERED: LEVE500T56 PO (08:54)
[2019-07-01] MEDS: ATORVASTATIN CALCIUM 20 MG TABLET PO SCH ×3 (09:00→20:34)
[2019-07-01] MEDS ORDERED: DOCUSATE SODIUM 100 MG CAPSULE PO PRN (09:00)
[2019-07-01] MEDS ORDERED: oxyCODONE/APAP 5/325 1 TAB TABLET PO PRN (09:00)
[2019-07-01] MEDS ORDERED: ENOXAPARIN 40 MG/0.4 ML SYRINGE. SQ SCH (09:45)
--- NOTE | 2019-07-01 10:01 | EKG ---
[address] [address] Test Date: 2019-07-01 Test Time: 09:57:16 Pat Name: KERMIT SALAMANCA Department: Room: 113 A Gender: F Contract Management Specialist: YANETH : 1945 Requested By: CIRO AUSTIN Order Number: [id number] Reading MD: Sterling Nation MD Measurements Intervals [place] Rate: 103 P: FL: QRS: 49 QRSD: 94 T: 239 QT: 324 QTc: 426 Interpretive Statements ATRIAL FIBRILLATION LVH NON-SPECIFIC ST/T CHANGES Electronically Signed On 07-03-2019 14:17:42 EMPLOYEE RELATIONS DIRECTOR by Sterling Nation MD
[2019-07-01 10:18] VITALS: BP 138/90
[2019-07-01] MEDS: ISOSORBIDE MONONITRATE ER 30 MG TAB.ER.24H PO SCH (10:28)
[2019-07-01] MEDS: methylPREDNISolone SOD SUCC PF 125 MG/2 ML VIAL. IV SCH ×3 (10:28→20:34)
[2019-07-01] MEDS: LISINOPRIL 20 MG TABLET PO SCH (10:28)
[2019-07-01] MEDS: LEVOTHYROXINE 75 MCG TABLET PO SCH (10:29)
[2019-07-01] MEDS: METOPROLOL TART IMMED RELEASE 50 MG TABLET PO SCH ×2 (10:29→20:33)
[2019-07-01] MEDS: levETIRAcetam 500 MG TABLET PO SCH ×2 (10:29→20:33)
[2019-07-01] MEDS: CARVEDILOL 3.125 MG TABLET PO SCH ×2 (10:30→17:01)
[2019-07-01] MEDS: IPRATRPIUM/ALBUTEROL 0.5/2.5MG 3 ML NEBU. NEB SCH ×3 (11:06→19:57)
[2019-07-01] MEDS ORDERED: DIGOXIN IV 500 MCG/2 ML AMPUL. IV ONE (14:45)
[2019-07-01 15:15] VITALS: BP 120/76
--- NOTE | 2019-07-01 17:16 | HP ---
ADMIT DATE: 06/30/2019 HISTORY OF PRESENT ILLNESS: The patient just came back from a trip from [place] and with increased shortness of breath. The patient was found to be in heart failure at this time, but also with atrial fibrillation with rapid ventricular response. I am unable to pull up the electrocardiogram as the PACS viewer could not be launched. However, it appeared that she may also have atrial fibrillation with rapid ventricular response. The patient was admitted therefore for congestive heart failure, acute on top of chronic as well as that of atrial fibrillation with rapid ventricular response. PAST MEDICAL HISTORY: Includes brain tumor, cardiomegaly, STEMI in 08/2014, heart attack, CHF, coronary artery disease, aortofemoral bypass, hypercholesterolemia, DVTs, bronchitis, pneumonia, reproductive disorders, hysterectomy, osteoarthritis, hypothyroidism and anemia. IMMUNIZATIONS: Tetanus toxoid, diphtheria, influenza, pneumococcal, up-to-date. She has also had MRSA. ALLERGIES: She has allergies to [employer] and TRIMETHOPRIM. MEDICATIONS: Include Abbey, albuterol, Xarelto 15 mg at bedtime, Lipitor 80 mg, isosorbide 30 mg daily, carvedilol 3.125 b.i.d., metoprolol 50 mg 1 tablet b.i.d., lisinopril 20 mg a day, Keppra 1 tablet b.i.d., Percocet 5/325, Ambien 10 mg at bedtime, Colace, levothyroxine 75 mcg. SOCIAL HISTORY: The patient has a [id number] history of smoking, has been encouraged numerous times to stop smoking. FAMILY HISTORY: Noncontributory. Otherwise, the patient denies any alcohol or drug use. REVIEW OF SYSTEMS: The patient just feels generally weak, extremely short of breath. Denies chest pain. Does have abdominal pain. Denies any other problems per se and neurologically, the patient is alert and oriented, stable there. PHYSICAL EXAMINATION: GENERAL: This is a pleasant white female, looking very lethargic. VITAL SIGNS: Blood pressure 130/82, respiratory rate 24, pulse 110, afebrile. HEENT: The patient's head was atraumatic, normocephalic. LUNGS: Diminished throughout, poor breath sounds were noted with rhonchi noted. CARDIOVASCULAR: Irregularly irregular rhythm, tachycardic. ABDOMEN: Soft, nontender, no rebound or guarding. Positive bowel sounds. No hepatosplenomegaly was noted. EXTREMITIES: No clubbing, cyanosis, nor edema. NEUROLOGIC: The patient is alert and oriented x 3. LABORATORY DATA: The patient's BNP of 5400. White count 17,000 down to 11, hemoglobin 11.9. Blood gas stable. D-dimer 0.35. Sodium 133, creatinine 1.1 with a GFR of 48, blood sugar 222. Lactic acid normal. UA unremarkable. Influenza negative. IMPRESSION AND PLAN: Acute on top of chronic diastolic heart failure, atrial fibrillation with rapid ventricular response and neurologically, the patient will be monitored carefully and as noted, cannot get into the PACS to review the EKG unfortunately. CIRO AUSTIN MD DR: CHRISTIAN/kat JOB#: [id number] / [id number]
[2019-07-01 19:13] VITALS: BP 125/83
[2019-07-01] MEDS: RIVAROXABAN 15 MG TABLET. PO SCH (20:32)
[2019-07-01] MEDS: MONTELUKAST 10 MG TABLET. PO SCH (20:33)
[2019-07-01 23:08] VITALS: BP 116/76
[2019-07-02 05:20] VITALS: BP 127/74
[2019-07-02] MEDS: IPRATRPIUM/ALBUTEROL 0.5/2.5MG 3 ML NEBU. NEB SCH ×4 (05:31→21:46)
[2019-07-02] MEDS: LEVOTHYROXINE 75 MCG TABLET PO SCH (05:34)
[2019-07-02 07:16] LABS: BASO # 0.1 x10^3/uL (0.0-0.2); BASO % 0 % (0-3); EOS % 0 % (0-3); HEMATOCRIT 34.5 % (36.0-47.0); LYMPH # 0.6 x10^3/uL (1.0-4.8); LYMPH % 4 % (24-48); MEAN CORPUSCULAR HEMOGLOBIN 27 pg (25-35); MEAN CORPUSCULAR HGB CONC 32 g/dL (31-37); MEAN CORPUSCULAR VOLUME 85 fL (79-100); MONO # 0.5 x10^3/uL (0.0-1.1); MONO % 3 % (0-9); NEUT % 93 % (31-73); PLATELET COUNT 310 x10^3/uL (140-400); RED BLOOD COUNT 4.04 x10^6/uL (3.50-5.40); RED CELL DISTRIBUTION WIDTH 17.1 % (11.5-14.5); WHITE BLOOD COUNT 16.2 x10^3/uL (4.0-11.0)
[2019-07-02 07:25] LABS: CALCIUM 8.8 mg/dL (8.5-10.1); GFR 54.3; POTASSIUM 4.5 mmol/L (3.5-5.1)
[2019-07-02 07:47] LABS: % BANDS 1 % (0-9); % LYMPHS 4 % (24-48); % MONOS 1 % (0-10); % SEGS 94 % (35-66)
[2019-07-02 07:48] LABS: PLT ESTIMATE ADEQUATE (ADEQUATE); POLYCHROMASIA PRESENT
[2019-07-02 07:49] LABS: ANISOCYTOSIS SLIGHT; OVALOCYTES OCC
[2019-07-02 07:51] LABS: TEAR DROP CELLS OCC
[2019-07-02 07:52] LABS: POIKILOCYTOSIS SLIGHT
[2019-07-02] MEDS: CARVEDILOL 3.125 MG TABLET PO SCH (09:00)
[2019-07-02] MEDS: levETIRAcetam 500 MG TABLET PO SCH ×2 (09:01→20:37)
[2019-07-02] MEDS: CETIRIZINE HCL 10 MG TABLET PO SCH (09:01)
[2019-07-02] MEDS: methylPREDNISolone SOD SUCC PF 40 MG/ML VIAL. IV SCH ×3 (09:01→20:36)
[2019-07-02] MEDS: ISOSORBIDE MONONITRATE ER 30 MG TAB.ER.24H PO SCH (09:01)
[2019-07-02] MEDS: METOPROLOL TART IMMED RELEASE 50 MG TABLET PO SCH ×2 (09:01→20:37)
[2019-07-02] MEDS: LISINOPRIL 20 MG TABLET PO SCH (09:03)
--- NOTE | 2019-07-02 10:05 | PN ---
DATE: SUBJECTIVE: A 74-year-old female, feeling much better. She is more alert got some good sleep. OBJECTIVE: VITAL SIGNS: The patient's blood pressure is 127/74, respiratory rate 20, pulse is now down in the 90s. She was up in the 130s with atrial fibrillation with RVR; however, she is markedly improved. LUNGS: Diminished and coarse breath sounds. CARDIOVASCULAR: Irregularly irregular rhythm. ABDOMEN: Soft. EXTREMITIES: No clubbing, cyanosis, nor edema. LABORATORY DATA: White count is up, but she is on methylprednisolone, so it probably explains that. IMPRESSION AND PLAN: Atrial fibrillation with rapid ventricular response, acute on chronic exacerbation of chronic obstructive pulmonary disease with asthma, acute bronchitis, elevated white count probably secondary to steroids, chronic kidney disease stage 3, elevated BNP still, also elevated troponins. We will also have Cardiology review her echocardiogram to be reviewed as well. CIRO AUSTIN MD DR: CHRISTIAN/kat JOB#: [id number] / [id number]
--- NOTE | 2019-07-02 10:30 | NUR ---
Pt is up in bed A & O X 4. irritable at times but compliant with her medication, assessment, and cares.
[2019-07-02 11:03] VITALS: BP 122/77
[2019-07-02 14:55] VITALS: BP 121/78
--- NOTE | 2019-07-02 16:38 | PDOC2 ---
CARDIAC CONSULT DATE OF CONSULT Date Of Consult DATE: 07/02/19 TIME: 16:30 REASON FOR CONSULT Reason for Consult Atrial fibrillation and heart failure REFERRING PHYSICIAN Referring Physician Dr. cM SOURCE Source: Chart review, Patient HPI History of Present Illness The patient is a 74-year-old female who was admitted to the hospital for increasing shortness of breath. The patient denied chest pain but did report continued tobacco abuse. Chest x-ray showed no acute processes. Troponin was minimally elevated at 0.060. EKG showed atrial fibrillation with nonspecific ST-T wave changes. The patient has been treated for diastolic heart failure and acute exacerbation of COPD and reports feeling better. She denies any chest pain. PAST MEDICAL HISTORY Cardiovascular: AFIB, CAD, CHF, HTN, [place], hyperipidemia, Other (peripheral vascular disease) Pulmonary: COPD CENTRAL NERVOUS SYSTEM: Seizure Heme/Onc: Other (brain tumor) PAST SURGICAL HISTORY Past Surgical History: Other (coronary stent placement, neurosurgery for a brain mass approximately 10 years ago, bilateral femoropopliteal operation) FAMILY HISTORY Family History: Hypertension SOCIAL HISTORY Smoke: <1 pack per day CURRENT MEDICATIONS Current Medications Current Medications Albuterol Sulfate (Ventolin) 2.5 mg STK-MED ONCE .ROUTE ; Start 06/30/19 at 21:10; Stop 06/30/19 at 21:11; Status DC Albuterol/ Ipratropium (Duoneb) 3 ml STK-MED ONCE .ROUTE ; Start 06/30/19 at 21:10; Stop 06/30/19 at 21:11; Status DC Furosemide (Lasix) 40 mg 1X ONCE IVP Last administered on 06/30/19at 21:44; Start 06/30/19 at 21:45; Stop 06/30/19 at 21:46; Status DC Methylprednisolone Sodium Succinate (SOLU-Medrol 125MG VIAL) 125 mg 1X ONCE IV Last administered on 06/30/19at 21:44; Start 06/30/19 at 21:45; Stop 06/30/19 at 21:46; Status DC Ondansetron HCl (Zofran) 4 mg PRN Q4HRS PRN IV NAUSEA/VOMITING; Start 06/30/19 at 23:00; Stop 07/01/19 at 22:59; Status DC Albuterol/ Ipratropium (Duoneb) 3 ml RTQID NEB Last administered on 07/01/19at 05:27; Start 07/01/19 at 08:00; Stop 07/01/19 at 09:52; Status DC Albuterol/ Ipratropium (Duoneb) 3 ml STK-MED ONCE .ROUTE ; Start 07/01/19 at 04:05; Stop 07/01/19 at 04:05; Status DC Methylprednisolone Sodium Succinate (SOLU-Medrol 125MG VIAL) 40 mg TID IV Last administered on 07/01/19at 20:34; Start 07/01/19 at 09:00; Stop 07/02/19 at 08:54; Status DC Montelukast Sodium (Singulair) 10 mg QHS PO ; Start 07/01/19 at 07:00; Stop 07/01/19 at 08:20; Status DC Albuterol/ Ipratropium (Duoneb) 3 ml RTQID NEB Last administered on 07/02/19at 16:23; Start 07/01/19 at 08:00 Montelukast Sodium (Singulair) 10 mg QHS PO Last administered on 07/01/19at 20:33; Start 07/01/19 at 21:00 Docusate Sodium (Colace) 100 mg PRN BID PRN PO CONSTIPATION; Start 07/01/19 at 09:00 Isosorbide Mononitrate (Imdur) 30 mg DAILY PO Last administered on 07/02/19at 09:01; Start 07/01/19 at 09:00 Levothyroxine Sodium (Synthroid) 75 mcg DAILY06 PO Last administered on 07/02/19 05:34; Start 07/01/19 at 09:00 Lisinopril (Prinivil) 20 mg DAILY PO Last administered on 07/02/19at 09:03; Start 07/01/19 at 09:00 Oxycodone/ Acetaminophen (Percocet 5/325) 1 tab PRN Q6HRS PRN PO PAIN; Start 07/01/19 at 09:00 Rivaroxaban (Xarelto) 15 mg HS PO Last administered on 07/01/19at 20:32; Start 07/01/19 at 21:00 Atorvastatin Calcium (Lipitor) 80 mg DAILY PO ; Start 07/01/19 at 09:00; Stop 07/01/19 at 14:55; Status DC Carvedilol (Coreg) 3.125 mg BIDWMEALS PO Last administered on 07/02/19 09:00; Start 07/01/19 at 10:00; Stop 07/02/19 at 10:27; Status DC Cetirizine HCl (ZyrTEC) 10 mg DAILY PO Last administered on 07/02/19 09:01; Start 07/02/19 at 09:00 Zolpidem Tartrate (Ambien) 5 mg PRN QHS PRN PO INSOMNIA MRX1; Start 07/01/19 at 09:30 Albuterol/ Ipratropium (Duoneb) 3 ml RTQID NEB ; Start 07/01/19 at 12:00; Stop 07/01/19 at 09:52; Status DC Enoxaparin Sodium (Lovenox 40mg Syringe) 40 mg Q24H SQ ; Start 07/01/19 at 09:45; Stop 07/01/19 at 09:53; Status DC Levetiracetam (Keppra) 500 mg BID PO Last administered on 07/02/19at 09:01; Start 07/01/19 at 10:00 Metoprolol Tartrate (Lopressor) 50 mg BID PO Last administered on 07/02/19 09:01; Start 07/01/19 at 10:00 Digoxin (Lanoxin) 125 mcg 1X ONCE IV Last administered on 07/01/19at 14:58; Start 07/01/19 at 14:45; Stop 07/01/19 at 14:46; Status DC Atorvastatin Calcium (Lipitor) 80 mg QHS PO Last administered on 07/01/19at 20:34; Start 07/01/19 at 21:00 Methylprednisolone Sodium Succinate (SOLU-Medrol 40MG VIAL) 40 mg TID IV Last administered on 07/02/19at 14:00; Start 07/02/19 at 09:00 Active Scripts Active Percocet 5-325 Mg Tablet (Oxycodone Hcl/Acetaminophen) 1 Each Tablet 1 Tab PO PRN Q6HRS PRN Isosorbide Mononitrate Er (Isosorbide Mononitrate) 30 Mg Tab.er.24h 30 Mg PO DAILY 30 Days Reported Metoprolol Tartrate 50 Mg Tablet 1 Tab PO BID Keppra (Levetiracetam) 500 Mg Tablet 1 Tab PO BID 30 Days Ventolin Hfa Inhaler (Albuterol Sulfate) 18 Gm Hfa.aer.ad 1 Puff IH PRN Q4HRS PRN Carvedilol 25 Mg Tablet 3.125 Mg PO BIDWMEALS Xarelto (Rivaroxaban) 15 Mg Tablet 15 Mg PO HS Ambien (Zolpidem Tartrate) 10 Mg Tablet 10 Mg PO PRN QHS PRN Colace (Docusate Sodium) 100 Mg Capsule 1 Cap PO BID PRN 30 Days LAST DOSE GIVEN: DATE: TODAY TIME: AM NEXT DOSE DUE: DATE: TODAY TIME: PM Levothyroxine Sodium 75 Mcg Tablet 1 Tab PO DAILY LAST DOSE GIVEN: DATE: TODAY TIME: AM NEXT DOSE DUE: DATE: TOMORROW TIME: AM Lipitor (Atorvastatin Calcium) 80 Mg Tablet 1 Tab PO DAILY LAST DOSE GIVEN: DATE: LAST NIGHT TIME: BEDTIME NEXT DOSE DUE: DATE: TODAY TIME: BEDTIME Lisinopril 20 Mg Tablet 20 Mg PO DAILY LAST DOSE GIVEN: DATE: TODAY TIME: AM NEXT DOSE DUE: DATE: TOMORROW TIME: AM [place] Allergy (Fexofenadine Hcl) 180 Mg Tablet 180 Mg PO DAILY LAST DOSE GIVEN: DATE: TODAY TIME: AM NEXT DOSE DUE: DATE: TOMORROW TIME: AM ALLERGIES Allergies: Coded Allergies: Sulfa (Sulfonamide Antibiotics) (Unverified Allergy, Intermediate, 05/08/19) sulfamethoxazole (Unverified Allergy, Intermediate, 05/08/19) trimethoprim (Unverified Allergy, Intermediate, 05/08/19) I S O L A T I O N *CONTACT* (Verified Allergy, Unknown, 06/29/19) mrsa ROS General: YES: Fatigue Respiratory: YES: Shortness of breath, SOB with excertion PHYSICAL EXAM General: mild distress HEENT: Atraumatic Lungs: Other (decreased breath sounds) Heart: Other (irregular rhythm) Abdomen: Normal bowel sounds VITALS Vital Signs Vital Signs Date Time Temp Pulse Resp B/P (MAP) Pulse Ox O2 Delivery O2 Flow Rate FiO2 07/02/19 16:23 Nasal Cannula 2.0 07/02/19 14:55 98.2 98 20 121/78 (92) 94 LABS LABS Laboratory Tests Test 06/30/19 21:10 06/30/19 21:25 06/30/19 21:30 06/30/19 21:45 Urine Collection Type Unknown Urine Color Straw Urine Clarity Clear Urine pH 5.5 Urine Specific [place] 1.010 Urine Protein Neg (NEG-TRACE) Urine Glucose (UA) Neg mg/dL (NEG) Urine Ketones (Stick) Neg mg/dL (NEG) Urine Blood Neg (NEG) Urine Nitrite Neg (NEG) Urine Bilirubin Neg (NEG) Urine Urobilinogen Dipstick 0.2 mg/dL (0.2 mg/dL) Urine Leukocyte Esterase Neg (NEG) Urine RBC 0 /HPF (0-2) Urine WBC 0 /HPF (0-4) Urine Squamous Epithelial Cells Few /LPF Urine Bacteria Few /HPF (0-FEW) NX-Lxu-D-Type Natriuretic Peptide 5725 pg/mL (0-124) White Blood Count 17.1 x10^3/uL (4.0-11.0) Red Blood Count 4.35 x10^6/uL (3.50-5.40) Hemoglobin 12.2 g/dL (12.0-15.5) Hematocrit 37.7 % (36.0-47.0) Mean Corpuscular Volume 87 fL (79-100) Mean Corpuscular Hemoglobin 28 pg (25-35) Mean Corpuscular Hemoglobin Concent 32 g/dL (31-37) Red Cell Distribution Width 17.3 % (11.5-14.5) Platelet Count 323 x10^3/uL (140-400) Neutrophils (%) (Auto) 80 % (31-73) Lymphocytes (%) (Auto) 12 % (24-48) Monocytes (%) (Auto) 7 % (0-9) Eosinophils (%) (Auto) 0 % (0-3) Basophils (%) (Auto) 0 % (0-3) Neutrophils # (Auto) 13.7 x10^3uL (1.8-7.7) Lymphocytes # (Auto) 2.0 x10^3/uL (1.0-4.8) Monocytes # (Auto) 1.2 x10^3/uL (0.0-1.1) Eosinophils # (Auto) 0.1 x10^3/uL (0.0-0.7) Basophils # (Auto) 0.1 x10^3/uL (0.0-0.2) Segmented Neutrophils % 84 % (35-66) Band Neutrophils % 1 % (0-9) Lymphocytes % 8 % (24-48) Monocytes % 7 % (0-10) Platelet Estimate Adequate (ADEQUATE) Poikilocytosis Slight Anisocytosis Slight Ovalocytes Present [place] Cells Present Sodium Level 132 mmol/L (136-145) Potassium Level 5.4 mmol/L (3.5-5.1) Chloride Level 96 mmol/L (98-107) Carbon Dioxide Level 28 mmol/L (21-32) Anion Gap 8 (6-14) Blood Urea Nitrogen 41 mg/dL (7-20) Creatinine 1.2 mg/dL (0.6-1.0) Estimated GFR (Cockcroft-Gault) 44.0 BUN/Creatinine Ratio 34 (6-20) Glucose Level 167 mg/dL (70-99) Calcium Level 9.4 mg/dL (8.5-10.1) Total Bilirubin 0.3 mg/dL (0.2-1.0) Aspartate Amino Transf (AST/SGOT) 31 U/L (15-37) Alanine Aminotransferase (ALT/SGPT) 35 U/L (14-59) Alkaline Phosphatase 64 U/L (46-116) Troponin I Quantitative 0.060 ng/mL (0-0.055) Total Protein 6.4 g/dL (6.4-8.2) Albumin 3.6 g/dL (3.4-5.0) Albumin/Globulin Ratio 1.3 (1.0-1.7) Influenza Type A (Rapid) Negative (NEGATIVE) Influenza Type B (Rapid) Negative (NEGATIVE) Test 06/30/19 22:11 07/01/19 00:15 07/01/19 02:15 07/01/19 05:00 Blood Gas pH 7.40 (7.35-7.45) Blood Gas PCO2 44 mmHg (35-45) Blood Gas PO2 64 mmHg (71-100) Blood Gas HCO3 27 mmol/L (22-26) Arterial Bld O2 Saturation (Calc) 92 % (92-99) FiO2 21 % Nasal Screen MRSA (PCR) Positive (Negative) Troponin I Quantitative 0.055 ng/mL (0-0.055) 0.051 ng/mL (0-0.055) White Blood Count 11.8 x10^3/uL (4.0-11.0) Red Blood Count 4.26 x10^6/uL (3.50-5.40) Hemoglobin 11.9 g/dL (12.0-15.5) Hematocrit 36.5 % (36.0-47.0) Mean Corpuscular Volume 86 fL (79-100) Mean Corpuscular Hemoglobin 28 pg (25-35) Mean Corpuscular Hemoglobin Concent 33 g/dL (31-37) Red Cell Distribution Width 17.1 % (11.5-14.5) Platelet Count 303 x10^3/uL (140-400) Neutrophils (%) (Auto) 96 % (31-73) Lymphocytes (%) (Auto) 3 % (24-48) Monocytes (%) (Auto) 2 % (0-9) Eosinophils (%) (Auto) 0 % (0-3) Basophils (%) (Auto) 0 % (0-3) Neutrophils # (Auto) 11.3 x10^3uL (1.8-7.7) Lymphocytes # (Auto) 0.3 x10^3/uL (1.0-4.8) Monocytes # (Auto) 0.2 x10^3/uL (0.0-1.1) Eosinophils # (Auto) 0.0 x10^3/uL (0.0-0.7) Basophils # (Auto) 0.0 x10^3/uL (0.0-0.2) Sodium Level 133 mmol/L (136-145) Potassium Level 4.5 mmol/L (3.5-5.1) Chloride Level 97 mmol/L (98-107) Carbon Dioxide Level 29 mmol/L (21-32) Anion Gap 7 (6-14) Blood Urea Nitrogen 40 mg/dL (7-20) Creatinine 1.1 mg/dL (0.6-1.0) Estimated GFR (Cockcroft-Gault) 48.7 Glucose Level 222 mg/dL (70-99) Calcium Level 9.0 mg/dL (8.5-10.1) ZC-Hra-T-Type Natriuretic Peptide 5470 pg/mL (0-124) Test 07/01/19 10:12 07/02/19 06:58 D-Dimer (Alexa) 0.35 mg/L (0.00-0.50) Lactic Acid Level 1.1 mmol/L (0.4-2.0) Procalcitonin < 0.10 ng/mL (0.00-0.10) White Blood Count 16.2 x10^3/uL (4.0-11.0) Red Blood Count 4.04 x10^6/uL (3.50-5.40) Hemoglobin 11.0 g/dL (12.0-15.5) Hematocrit 34.5 % (36.0-47.0) Mean Corpuscular Volume 85 fL (79-100) Mean Corpuscular Hemoglobin 27 pg (25-35) Mean Corpuscular Hemoglobin Concent 32 g/dL (31-37) Red Cell Distribution Width 17.1 % (11.5-14.5) Platelet Count 310 x10^3/uL (140-400) Neutrophils (%) (Auto) 93 % (31-73) Lymphocytes (%) (Auto) 4 % (24-48) Monocytes (%) (Auto) 3 % (0-9) Eosinophils (%) (Auto) 0 % (0-3) Basophils (%) (Auto) 0 % (0-3) Neutrophils # (Auto) 15.0 x10^3uL (1.8-7.7) Lymphocytes # (Auto) 0.6 x10^3/uL (1.0-4.8) Monocytes # (Auto) 0.5 x10^3/uL (0.0-1.1) Eosinophils # (Auto) 0.0 x10^3/uL (0.0-0.7) Basophils # (Auto) 0.1 x10^3/uL (0.0-0.2) Segmented Neutrophils % 94 % (35-66) Band Neutrophils % 1 % (0-9) Lymphocytes % 4 % (24-48) Monocytes % 1 % (0-10) Platelet Estimate Adequate (ADEQUATE) Large Platelets Occ Polychromasia Present Poikilocytosis Slight Basophilic Stippling Present Anisocytosis Slight Tear Drop Cells Occ Ovalocytes Occ Crenated Cell Present Sodium Level 136 mmol/L (136-145) Potassium Level 4.5 mmol/L (3.5-5.1) Chloride Level 99 mmol/L (98-107) Carbon Dioxide Level 30 mmol/L (21-32) Anion Gap 7 (6-14) Blood Urea Nitrogen 38 mg/dL (7-20) Creatinine 1.0 mg/dL (0.6-1.0) Estimated GFR (Cockcroft-Gault) 54.3 Glucose Level 207 mg/dL (70-99) Calcium Level 8.8 mg/dL (8.5-10.1) IMAGES IMAGES Chest x-ray with no acute processes. EKG EKG EKG shows atrial fibrillation and nonspecific ST segment changes. STRESS TEST Stress Test Nuclear stress test on 12/23/17 showed no reversible ischemia, a fixed inferior wall defect and an ejection fraction of greater than 60%. ASSESSMENT/PLAN Assessment/Plan 1. Acute respiratory failure. Patient with acute exacerbation of COPD and continued tobacco abuse as well as probable diastolic heart failure. Patient is improving on present medications and would continue. We'll gradually increase activities today. 2. Acute exacerbation of COPD with continued tobacco abuse. Discussed discontinuation of smoking. Continue pulmonary medications. 3. Probable diastolic heart failure. Exacerbated by initial elevation in patient's atrial fibrillation rate. Will continue on present treatments and monitor lab. 4. Chronic atrial fibrillation. Rate under reasonable control at this time on metoprolol 50 mg twice a day. Patient also continues on anticoagulation with overall toe. 5. Hypertension. Improved control. Continue present treatment. 6. Hyperlipidemia. Continue present treatment. Thank you for allowing us to participate in the care of your patient. DANI ROBBINS MD Jul 02, 2019 16:38
[2019-07-02] MEDS ORDERED: SODIUM CHLORIDE 0.65% NASAL SPRAY 45ML BOTTLE. NS PRN (19:30)
[2019-07-02 19:58] VITALS: BP 154/85
[2019-07-02] MEDS: MONTELUKAST 10 MG TABLET. PO SCH (20:37)
[2019-07-02] MEDS: RIVAROXABAN 15 MG TABLET. PO SCH (20:37)
[2019-07-02] MEDS: ATORVASTATIN CALCIUM 20 MG TABLET PO SCH (20:38)
[2019-07-02] MEDS: ZOLPIDEM 5 MG TABLET. PO PRN (20:39)
[2019-07-02 23:32] VITALS: BP 139/89
[2019-07-03] MEDS: IPRATRPIUM/ALBUTEROL 0.5/2.5MG 3 ML NEBU. NEB SCH ×4 (05:10→19:52)
[2019-07-03 05:46] VITALS: BP 168/97
[2019-07-03] MEDS: LEVOTHYROXINE 75 MCG TABLET PO SCH (05:49)
--- NOTE | 2019-07-03 07:51 | PDOC ---
CARDIO Progress Notes Date & Time Date of Service DATE: 07/03/19 TIME: 07:44 Time of Evaluation 07:44 Subjective Notes breathing improved. No chest pain, palpitations, dizziness, diaphoresis or nausea/vomiting. Vitals Vitals Vital Signs Date Time Temp Pulse Resp B/P (MAP) Pulse Ox O2 Delivery O2 Flow Rate FiO2 07/03/19 05:46 97.7 98 18 168/97 (120) 96 Nasal Cannula 3.0 Weight Weight [ ] Input and Output I.O. Intake and Output 07/03/19 07:00 Intake Total 1200 ml Balance 1200 ml Intake Oral 1200 ml # Voids 6 Laboratory Labs Laboratory Tests Test 07/01/19 10:12 07/02/19 06:58 D-Dimer (Alexa) 0.35 mg/L (0.00-0.50) Lactic Acid Level 1.1 mmol/L (0.4-2.0) Procalcitonin < 0.10 ng/mL (0.00-0.10) White Blood Count 16.2 x10^3/uL (4.0-11.0) Red Blood Count 4.04 x10^6/uL (3.50-5.40) Hemoglobin 11.0 g/dL (12.0-15.5) Hematocrit 34.5 % (36.0-47.0) Mean Corpuscular Volume 85 fL (79-100) Mean Corpuscular Hemoglobin 27 pg (25-35) Mean Corpuscular Hemoglobin Concent 32 g/dL (31-37) Red Cell Distribution Width 17.1 % (11.5-14.5) Platelet Count 310 x10^3/uL (140-400) Neutrophils (%) (Auto) 93 % (31-73) Lymphocytes (%) (Auto) 4 % (24-48) Monocytes (%) (Auto) 3 % (0-9) Eosinophils (%) (Auto) 0 % (0-3) Basophils (%) (Auto) 0 % (0-3) Neutrophils # (Auto) 15.0 x10^3uL (1.8-7.7) Lymphocytes # (Auto) 0.6 x10^3/uL (1.0-4.8) Monocytes # (Auto) 0.5 x10^3/uL (0.0-1.1) Eosinophils # (Auto) 0.0 x10^3/uL (0.0-0.7) Basophils # (Auto) 0.1 x10^3/uL (0.0-0.2) Segmented Neutrophils % 94 % (35-66) Band Neutrophils % 1 % (0-9) Lymphocytes % 4 % (24-48) Monocytes % 1 % (0-10) Platelet Estimate Adequate (ADEQUATE) Large Platelets Occ Polychromasia Present Poikilocytosis Slight Basophilic Stippling Present Anisocytosis Slight Tear Drop Cells Occ Ovalocytes Occ Crenated Cell Present Sodium Level 136 mmol/L (136-145) Potassium Level 4.5 mmol/L (3.5-5.1) Chloride Level 99 mmol/L (98-107) Carbon Dioxide Level 30 mmol/L (21-32) Anion Gap 7 (6-14) Blood Urea Nitrogen 38 mg/dL (7-20) Creatinine 1.0 mg/dL (0.6-1.0) Estimated GFR (Cockcroft-Gault) 54.3 Glucose Level 207 mg/dL (70-99) Calcium Level 8.8 mg/dL (8.5-10.1) Physical Exams HEENT: Neck Supple W Full Motion Chest: Symmetric Lungs: Other (fine expiratory wheezing ) Heart: S1S2, irregularly irregular Abdomen: Soft N/T Extremities: No Edema Neurology: alert, oriented, follow commands Assessment Assessment 1. Acute respiratory failure with AE COPD with continued tobaccoism and mild a/c CHF 2. Persistent AFIB; RVR noted overnight. 3. Mild acute on chronic systolic/diastolic heart failure; LVEF 40-45%. 4. CAD s/p PCI/stent; Most recent cath with PCI/MAUDE to the LAD and PTCA to the LCx 4. Severe PAD s/p aortobifemoral bypass with finding of SFA occlusion on the right side without any critical limb ischemia at this time 5. S/p brain tumor removal; 03/15/19 6. Hypertension; controlled 7. Hyperlipidemia 8. Tobaccoism; discussed/encouraged cessation Recommendations: Continue metoprolol; will increase for better rate control as BP allow, unless wheezing exacerbated May need to resume Dig for rate control Xarelto for stroke prophylaxis Consider for outpatient cardioversion Secondary prevention measures. Follow up with Dr. Simons 07/19/18 as previously scheduled. LIZETTE HERANNDEZ APRN Jul 03, 2019 07:51
[2019-07-03] MEDS: ISOSORBIDE MONONITRATE ER 30 MG TAB.ER.24H PO SCH (08:18)
[2019-07-03] MEDS: CETIRIZINE HCL 10 MG TABLET PO SCH (08:19)
[2019-07-03] MEDS: LISINOPRIL 20 MG TABLET PO SCH (08:19)
[2019-07-03] MEDS: methylPREDNISolone SOD SUCC PF 40 MG/ML VIAL. IV SCH ×2 (08:19→20:53)
[2019-07-03] MEDS: levETIRAcetam 500 MG TABLET PO SCH ×2 (08:19→20:53)
[2019-07-03] MEDS: METOPROLOL TART IMMED RELEASE 50 MG TABLET PO SCH ×2 (08:33→20:54)
--- NOTE | 2019-07-03 10:06 | NUR ---
NURSING NOTE PT WAS IN BED THIS AM UPON ASSESSMENT AND MEDICATION ADMINISTRATION. PT IS A&O, CALM AND COMPLIANT WITH ALL CARES THUS FAR. PT TAKES HER MEDS WHOLE. PT SEEN BY CARDIOLOGY THIS AM. METOPROLOL INCREASED TO 75MG TWICE DAILY FROM 50MG FOR HR CONTROL. WHEEZE NOTED ON AUSCULTATION OF LUNGS. PT COMPLAIN OF PAIN 2/10 ON HER RIGHT FOOT, CURRENTLY IS WRAPPED WITH FREDO WRAP. PT FOOT HAS GOOD COLOR, CIRCULATION, AND CAP REFILL, NO SWELLING NOTED IN TOES. DID NOT REMOVE FREDO WRAP AT THIS TIME; CLEAN DRY AND INTACT. PT DOES HAVE A FOLLOW UP WITH DR REED ON JUL 19 AND IS TO KEEP THAT FOLLOW UP APPT. WILL CONTINUE TO MONITOR. MARYLU BURNETTE.
--- NOTE | 2019-07-03 10:13 | NUR ---
IP: Pt is mrsa screen + requiring contact precautions.
[2019-07-03 10:38] VITALS: BP 160/100
[2019-07-03 14:11] VITALS: BP 148/96
[2019-07-03 18:57] VITALS: BP 134/80
[2019-07-03] MEDS: ATORVASTATIN CALCIUM 20 MG TABLET PO SCH (20:53)
[2019-07-03] MEDS: RIVAROXABAN 15 MG TABLET. PO SCH (20:53)
[2019-07-03] MEDS: ZOLPIDEM 5 MG TABLET. PO PRN (20:53)
[2019-07-03] MEDS: MONTELUKAST 10 MG TABLET. PO SCH (20:54)
--- NOTE | 2019-07-03 23:41 | PN ---
DATE: SUBJECTIVE: A 74-year-old female in with multiple medical problems. She seems to be improving and definitely having much better aeration. The patient had a persistent AFib. We brought that down with increasing her metoprolol. Otherwise, her respiratory failure seems to be improving dramatically there. OBJECTIVE: VITAL SIGNS: Blood pressure 168/97, respiratory rate 18, pulse 98-100, temperature afebrile, 1.5 liters per nasal cannula. GENERAL: She does look stronger. LUNGS: Diminished, some rhonchi noted in the upper lobes, but much improved, moving air between those rhonchi. NEUROLOGIC: The patient is alert and oriented x 3. Speech spontaneous, appropriate. Cranial nerves 2-12 good. LABORATORY DATA: From yesterday still show elevated white counts, but her electrolytes, BUN and creatinine were normal and we will continue to monitor her. Cardiology is also involved in the case and will review this with Cardiology as well. IMPRESSION AND PLAN: Atrial fibrillation with rapid ventricular response, acute respiratory failure, acute bronchitis with asthma, chronic kidney disease stage 3, elevated BNP, elevated troponins, probably from acute on top of chronic diastolic congestive heart failure. Continue with diuresis gently and increase blood pressure medications per Cardiology's intuition. CIRO AUSTIN MD DR: CHRISTIAN/kat JOB#: [id number] / [id number]
[2019-07-03 23:43] VITALS: BP 153/93
[2019-07-04] MEDS: IPRATRPIUM/ALBUTEROL 0.5/2.5MG 3 ML NEBU. NEB SCH ×2 (04:49→09:49)
[2019-07-04 05:10] VITALS: BP 166/99
[2019-07-04] MEDS: LEVOTHYROXINE 75 MCG TABLET PO SCH (05:14)
--- NOTE | 2019-07-04 07:28 | PDOC ---
CARDIO Progress Notes Date & Time Date of Service DATE: 07/04/19 TIME: 07:27 Time of Evaluation 07:27 Subjective Notes breathing better. No chest pain, palpitations Vitals Vitals Vital Signs Date Time Temp Pulse Resp B/P (MAP) Pulse Ox O2 Delivery O2 Flow Rate FiO2 07/04/19 05:10 97.9 97 20 166/99 (121) 97 Nasal Cannula 2.0 Weight Weight [ ] Input and Output I.O. Intake and Output 07/04/19 06:59 Intake Total 650 ml Balance 650 ml Intake Oral 650 ml # Voids 5 # Bowel Movements 1 Physical Exams HEENT: Neck Supple W Full Motion Chest: Symmetric Lungs: Other (fine expiratory wheezing ) Heart: S1S2, irregularly irregular (rate 100-120. Tele noted with frequent, intermittent RVR ) Abdomen: Soft N/T Extremities: No Edema Neurology: alert, oriented, follow commands Assessment Assessment . Acute respiratory failure with AE COPD with continued tobaccoism and mild a/c CHF 2. Persistent AFIB; tele with intermittent RVR despite increase metoprolol 3. Mild acute on chronic systolic/diastolic heart failure; LVEF 40-45%. 4. CAD s/p PCI/stent; Most recent cath with PCI/MAUDE to the LAD and PTCA to the LCx 4. Severe PAD s/p aortobifemoral bypass with finding of SFA occlusion on the right side without any critical limb ischemia at this time 5. S/p brain tumor removal; 03/15/19 6. Hypertension; controlled 7. Hyperlipidemia 8. Tobaccoism; discussed/encouraged cessation Recommendations: Continue metoprolol Will add digoxin for rate control Xarelto for stroke prophylaxis Consider for outpatient cardioversion Secondary prevention measures. Follow up with Dr. Simons 07/19/18 as previously scheduled. LIZETTE HERNANDEZ APRN Jul 04, 2019 07:28
[2019-07-04] MEDS: CETIRIZINE HCL 10 MG TABLET PO SCH (08:08)
[2019-07-04] MEDS: ISOSORBIDE MONONITRATE ER 30 MG TAB.ER.24H PO SCH (08:08)
[2019-07-04] MEDS: methylPREDNISolone SOD SUCC PF 40 MG/ML VIAL. IV SCH ×2 (08:08→21:04)
[2019-07-04] MEDS: METOPROLOL TART IMMED RELEASE 50 MG TABLET PO SCH ×2 (08:09→21:05)
[2019-07-04] MEDS: LISINOPRIL 20 MG TABLET PO SCH (08:09)
[2019-07-04] MEDS: levETIRAcetam 500 MG TABLET PO SCH ×2 (08:09→21:05)
[2019-07-04] MEDS: DIGOXIN 125 MCG TABLET PO SCH (08:55)
[2019-07-04 09:20] LABS: BASO % 0 % (0-3); EOS % 0 % (0-3); HEMATOCRIT 35.3 % (36.0-47.0); HEMOGLOBIN 11.4 g/dL (12.0-15.5); LYMPH # 0.9 x10^3/uL (1.0-4.8); LYMPH % 5 % (24-48); MEAN CORPUSCULAR HEMOGLOBIN 27 pg (25-35); MEAN CORPUSCULAR HGB CONC 32 g/dL (31-37); MEAN CORPUSCULAR VOLUME 85 fL (79-100); MONO # 0.7 x10^3/uL (0.0-1.1); MONO % 4 % (0-9); NEUT # 14.5 x10^3uL (1.8-7.7); NEUT % 90 % (31-73); PLATELET COUNT 317 x10^3/uL (140-400); RED BLOOD COUNT 4.14 x10^6/uL (3.50-5.40); RED CELL DISTRIBUTION WIDTH 16.7 % (11.5-14.5)
[2019-07-04 09:25] LABS: CALCIUM 8.9 mg/dL (8.5-10.1); CREATININE 1.1 mg/dL (0.6-1.0); GFR 48.7; POTASSIUM 4.9 mmol/L (3.5-5.1)
--- NOTE | 2019-07-04 09:30 | NUR ---
NURSING NOTE PT HAS BEEN IN AFIB, FOLLOWED BY CARDIOLOGY, PT HAD RUN OF SVT THIS AM HR 180-190. THIS NURSE FOUND PT SLEEPING, ASSESSED PT AND UPON AUSCULTATION PT WAS BACK TO RATE OF 94 AND ASYMPTOMATIC. PT GIVEN ORDERED DIGOXIN BY [facility] THIS AM. DR AUSTIN HERE, ORDER OBTAINED FOR LABS, STAT EKG, AND CHANGE TO ICU STATUS FOR MONITORING. NURSING HEATER FURNACE NOTIFIED OF NEED OF ICU BED. RESPIRATORY PAGED, EKG OBTAINED. WAITING FOR OPEN BED IN ICU. PT IS CURRENTLY STABLE, HR 93. PT RESTING COMFORTABLY IN BED. WILL CONTINUE TO MONITOR. MARYLU BURNETTE.
[2019-07-04 09:31] LABS: MAGNESIUM 2.3 mg/dL (1.8-2.4)
[2019-07-04 10:40] LABS: % BANDS 2 % (0-9); % LYMPHS 2 % (24-48); % MONOS 3 % (0-10); % SEGS 93 % (35-66)
[2019-07-04 10:48] LABS: PLT ESTIMATE ADEQUATE (ADEQUATE)
[2019-07-04 10:55] LABS: ACANTHOCYTES PRESENT
[2019-07-04 10:56] LABS: POLYCHROMASIA PRESENT
[2019-07-04 11:56] VITALS: BP 154/95
--- NOTE | 2019-07-04 12:03 | PN ---
DATE: SUBJECTIVE: The patient is a 74-year-old female doing fairly well. The patient has been having problems. She went into SVT this morning with rate up to about 150 and she also has mild CHF. She does have persistent atrial fibrillation with RVR, chronic diastolic and systolic dysfunction with an LVEF of 40-45%. The patient otherwise presently resting fairly comfortably, gave her a dose of digoxin. OBJECTIVE: VITAL SIGNS: Blood pressure still 166/99, respiratory rate 20, pulse approximately 100-150 laterally lately. She is afebrile. GENERAL: The patient is alert and oriented. Denies any chest pain. LUNGS: Diminished throughout, poor movement of air, but basically clear and improved. CARDIOVASCULAR: Presently just irregularly irregular rhythm. ABDOMEN: Soft, nontender, no rebounding, no guarding. Positive bowel sounds. EXTREMITIES: No clubbing, cyanosis. Trace edema noted. The patient will be moved to the ICU for closer monitoring because of her arrhythmias. EKG, chest x-ray pending, labs are pending to make sure that she has not had any change in her electrolytes or her other problems there. Atrial fibrillation with rapid ventricular response, acute respiratory failure, acute bronchitis with asthma, chronic kidney disease stage 3, severe peripheral arterial disease, aortobifemoral bypass with finding of SFA occlusion on the right side without any critical limb ischemia at this time. She has had a brain tumor removed 03/15/2019, essential hypertension, hyperlipidemia, tobaccoism. Encouraged her and offered her multiple things to control her desire to smoke. Cardiology is also seeing her. She is ambulatory at times. CIRO AUSTIN MD DR: CHRISTIAN/kat JOB#: [id number] / [id number]
--- NOTE | 2019-07-04 12:21 | NUR ---
NURSING NOTE REPORT CALLED TO ICU NURSE JILL. VASILE RN.
[2019-07-04 15:00] VITALS: BP 164/94
[2019-07-04] MEDS ORDERED: DIGOXIN IV 500 MCG/2 ML AMPUL. IV ONE (18:15)
[2019-07-04 19:12] VITALS: BP 175/94
[2019-07-04] MEDS: MONTELUKAST 10 MG TABLET. PO SCH (21:04)
[2019-07-04] MEDS: RIVAROXABAN 15 MG TABLET. PO SCH (21:05)
[2019-07-04] MEDS: ATORVASTATIN CALCIUM 20 MG TABLET PO SCH (21:06)
[2019-07-04] MEDS: ZOLPIDEM 5 MG TABLET. PO PRN (21:10)
[2019-07-04 23:38] VITALS: BP 169/91
[2019-07-05] MEDS: IPRATRPIUM/ALBUTEROL 0.5/2.5MG 3 ML NEBU. NEB SCH ×4 (05:26→20:52)
[2019-07-05] MEDS: LEVOTHYROXINE 75 MCG TABLET PO SCH (05:34)
[2019-07-05 05:46] VITALS: BP 171/99
[2019-07-05] MEDS: LISINOPRIL 20 MG TABLET PO SCH (09:50)
[2019-07-05] MEDS: ISOSORBIDE MONONITRATE ER 30 MG TAB.ER.24H PO SCH (09:51)
[2019-07-05] MEDS: CETIRIZINE HCL 10 MG TABLET PO SCH (09:51)
[2019-07-05] MEDS: levETIRAcetam 500 MG TABLET PO SCH ×2 (09:51→20:32)
[2019-07-05] MEDS: DIGOXIN 125 MCG TABLET PO SCH (09:51)
[2019-07-05] MEDS: methylPREDNISolone SOD SUCC PF 40 MG/ML VIAL. IV SCH ×2 (09:52→20:32)
[2019-07-05] MEDS: METOPROLOL TART IMMED RELEASE 50 MG TABLET PO SCH ×2 (09:52→20:34)
[2019-07-05] MEDS ORDERED: ERYTHROMYCIN BASE 250 MG TABLET PO SCH (10:00)
[2019-07-05 11:00] VITALS: BP 155/110
--- NOTE | 2019-07-05 11:23 | PN ---
DATE: 07/05/2019 SUBJECTIVE: This is a 74-year-old female with acute exacerbation of COPD, acute respiratory failure. The patient also had some atrial fibrillation with RVR. Dr. Dean has seen the patient and made timely suggestions on that and that seems to be under better control. The patient is still having some difficulty in breathing with coarse breath sounds throughout her right lung. The CVR exam otherwise stable in that regard. OBJECTIVE: VITAL SIGNS: The patient's blood pressure 170/99, respiratory rate 21, pulse 80, afebrile. GENERAL: The patient is alert and oriented. LUNGS: As noted decreased in one side with marked rhonchi noted. CARDIOVASCULAR: Irregularly irregular rhythm. ABDOMEN: Soft, nontender. EXTREMITIES: No clubbing, cyanosis, nor edema. IMPRESSION: Acute exacerbation of chronic obstructive pulmonary disease with infiltrative process or infection of unknown etiology, acute on top of chronic congestive heart failure. PLAN: We will continue to monitor the patient and make further evaluation on her, adjust her medications, get her blood pressure down, essential hypertension as well and make further assessment as indicated. Also, acute on top of chronic congestive heart failure, hyperkalemia. CIRO AUSTIN MD DR: CHRISTIAN/kat JOB#: [id number] / [id number]
[2019-07-05] MEDS: DOXYCYCLINE HYCLATE 100 MG TABLET PO SCH ×2 (12:30→20:33)
[2019-07-05 15:00] VITALS: BP 153/91
[2019-07-05 19:00] VITALS: BP 144/69
[2019-07-05 20:00] VITALS: BP 141/96
[2019-07-05] MEDS: MONTELUKAST 10 MG TABLET. PO SCH (20:33)
[2019-07-05] MEDS: RIVAROXABAN 15 MG TABLET. PO SCH (20:33)
[2019-07-05] MEDS: ATORVASTATIN CALCIUM 20 MG TABLET PO SCH (20:33)
[2019-07-05] MEDS: ZOLPIDEM 5 MG TABLET. PO PRN (20:34)
[2019-07-05 21:01] VITALS: BP 160/85
[2019-07-06] MEDS: IPRATRPIUM/ALBUTEROL 0.5/2.5MG 3 ML NEBU. NEB SCH (04:55)
[2019-07-06 05:06] VITALS: BP 137/92
[2019-07-06 05:13] VITALS: BP 157/99
[2019-07-06] MEDS: LEVOTHYROXINE 75 MCG TABLET PO SCH (05:23)
--- NOTE | 2019-07-06 05:25 | NUR ---
Pt slept for most of night, got up to BS to void twice with assistance. Pt maintained good O2 sat on room air and did NOT require oxygen during night. BP continues to be elevated but HR improved, still in Afib.
[2019-07-06] MEDS ORDERED: DOXY100T PO (07:53)
[2019-07-06] MEDS ORDERED: DIGO125T17 PO (07:53)
[2019-07-06] MEDS ORDERED: BUPR150T15 PO (07:53)
--- NOTE | 2019-07-06 08:16 | DISCH ---
HOME HEALTH DISCHARGE/MEDS DISCHARGE INFORMATION: Discharge Date: Jul 06, 2019 Final Diagnosis: Problems Medical Problems: (1) COPD exacerbation Status: Acute (2) Elevated troponin I level Status: Acute Condition on Discharge: Stable CODE STATUS: Code Status: Full HOME HEALTH: Face to Face: I certify this patient is under my care and that I, or a nurse practitioner or physician's membership assistant working with me, had a face to face encounter that meets the physician face to face encounter requirements with this patient on [Date]. Medical Condition(s): COPD Retirement For: Assess Cardiopulm Status, Assess & Educate Safety, Assess/Skilled Observatio, Medication Management Physical Therapy For: Evalulation/Treatment Occupational Therapy For: Evaluation/Treatment Homebound Status Met By: Fatigue w/ amb. POST DISCHARGE ORDERS: Activity Instructions for Disc: Activity as tolerated DIET AFTER DISCHARGE: Cardiac CHECKS AFTER DISCHARGE: Checks after discharge: Check blood press - daily, Weigh Yourself Daily CERTIFICATION STATEMENT: Certification Statement: Based on the above finding, I certify that this patient is confined to the home and needs intermittent senior care care, physical therapy and/or speech therapy, or continues to need occupational therapy.~ This patient is under my care, and I have initiated the establishment of the plan of care.~ This patient will be followed by myself or a community physician who will periodically review the plan of care. DISCHARGE MEDICATIONS: Home Meds Active Scripts Prednisone (PREDNISONE) 1 Mg Tablet, 5 MG PO DAILY PRN for INFLAMMATION, #120 TAB 3 Refills Take 40mg for 3 days and decrease by 5mg every 4th day until down to 5mg daily. Stay on 5mg daily. Prov:CIRO AUSTIN MD 07/06/19 Bupropion Hcl (WELLBUTRIN XL) 150 Mg Tab.er.24h, 1 TAB PO DAILYWBKFT for smoking cessation for 30 Days, #30 TAB 2 Refills Prov:CIRO AUSTIN MD 07/06/19 Digoxin (DIGOX) 125 Mcg Tablet, 125 MCG PO DAILY for a fib for 30 Days, #30 TAB 4 Refills Prov:CIRO AUSTIN MD 07/06/19 Doxycycline Hyclate (DOXYCYCLINE HYCLATE) 100 Mg Tablet, 100 MG PO BID for bronchitis for 7 Days, #14 TAB 1 Refill Prov:CIRO AUSTIN MD 07/06/19 Oxycodone Hcl/Acetaminophen (PERCOCET 5-325 MG TABLET ) 1 Each Tablet, 1 TAB PO PRN Q6HRS PRN for PAIN, #20 TAB Prov:YAYO VICENTE DO 04/10/19 Isosorbide Mononitrate (ISOSORBIDE MONONITRATE ER) 30 Mg Tab.er.24h, 30 MG PO DAILY for 30 Days, #30 TAB.SR 2 Refills Prov:CIRO AUSTIN MD 12/23/17 Reported Medications Metoprolol Tartrate (METOPROLOL TARTRATE) 50 Mg Tablet, 1 TAB PO BID for high blood pressure, #60 TAB 5 Refills 07/01/19 Levetiracetam (KEPPRA) 500 Mg Tablet, 1 TAB PO BID for seizure disorder for 30 Days, #60 TAB 0 Refills 07/01/19 Albuterol Sulfate (VENTOLIN HFA INHALER) 18 Gm Hfa.aer.ad, 1 PUFF IH PRN Q4HRS PRN for FOR ASTHMA, INHALER 0 Refills 06/29/19 Carvedilol (CARVEDILOL) 25 Mg Tablet, 3.125 MG PO BIDWMEALS for CARDIAC, TAB 06/25/19 Rivaroxaban (XARELTO) 15 Mg Tablet, 15 MG PO HS for ., TAB 06/25/19 Zolpidem Tartrate (AMBIEN) 10 Mg Tablet, 10 MG PO PRN QHS PRN for INSOMNIA, TAB 0 Refills 06/25/19 Docusate Sodium (COLACE) 100 Mg Capsule, 1 CAP PO BID PRN for CONSTIPATION for 30 Days LAST DOSE GIVEN: DATE: TODAY TIME: AM NEXT DOSE DUE: DATE: TODAY TIME: PM 05/08/19 Levothyroxine Sodium (LEVOTHYROXINE SODIUM) 75 Mcg Tablet, 1 TAB PO DAILY for unknown LAST DOSE GIVEN: DATE: TODAY TIME: AM NEXT DOSE DUE: DATE: TOMORROW TIME: AM 12/05/18 Atorvastatin Calcium (LIPITOR) 80 Mg Tablet, 1 TAB PO DAILY for unknown LAST DOSE GIVEN: DATE: LAST NIGHT TIME: BEDTIME NEXT DOSE DUE: DATE: TODAY TIME: BEDTIME 12/05/18 Lisinopril (LISINOPRIL) 20 Mg Tablet, 20 MG PO DAILY for HIGH BLOOD PRESSURE LAST DOSE GIVEN: DATE: TODAY TIME: AM NEXT DOSE DUE: DATE: TOMORROW TIME: AM 05/07/15 Fexofenadine Hcl (JAIMIE ALLERGY) 180 Mg Tablet, 180 MG PO DAILY for SEASONAL ALLERGIES LAST DOSE GIVEN: DATE: TODAY TIME: AM NEXT DOSE DUE: DATE: TOMORROW TIME: AM 08/20/14 Discontinued Reported Medications Albuterol Sulfate (PROAIR HFA INHALER) 8.5 Gm Hfa.aer.ad, 1 PUFF INH PRN Q6HRS PRN for SHORTNESS OF BREATH NOT GIVEN IN THE HOSPITAL NEXT DOSE DUE: DATE: RESTART TODAY TIME: IF AND WHEN NEEDED 12/21/17 CIRO AUSTIN MD Jul 06, 2019 08:16
[2019-07-06] MEDS ORDERED: PRED1TAB PO (08:30)
--- NOTE | 2019-07-06 08:34 | PDOC ---
CARDIO Progress Notes Date & Time Date of Service DATE: 07/06/19 TIME: 08:31 Time of Evaluation 08:31 Subjective Notes Feeling much better. Wanting to go home Vitals Vitals Vital Signs Date Time Temp Pulse Resp B/P (MAP) Pulse Ox O2 Delivery O2 Flow Rate FiO2 07/06/19 07:44 Room Air 07/06/19 05:13 87 14 157/99 (118) 93 07/06/19 05:06 07/05/19 15:00 1.0 Weight Weight [ ] Input and Output I.O. Intake and Output 07/06/19 07:00 Intake Total 150 ml Balance 150 ml Intake Oral 150 ml # Voids 4 Laboratory Labs Laboratory Tests Test 07/04/19 09:06 White Blood Count 16.0 x10^3/uL (4.0-11.0) Red Blood Count 4.14 x10^6/uL (3.50-5.40) Hemoglobin 11.4 g/dL (12.0-15.5) Hematocrit 35.3 % (36.0-47.0) Mean Corpuscular Volume 85 fL (79-100) Mean Corpuscular Hemoglobin 27 pg (25-35) Mean Corpuscular Hemoglobin Concent 32 g/dL (31-37) Red Cell Distribution Width 16.7 % (11.5-14.5) Platelet Count 317 x10^3/uL (140-400) Neutrophils (%) (Auto) 90 % (31-73) Lymphocytes (%) (Auto) 5 % (24-48) Monocytes (%) (Auto) 4 % (0-9) Eosinophils (%) (Auto) 0 % (0-3) Basophils (%) (Auto) 0 % (0-3) Neutrophils # (Auto) 14.5 x10^3uL (1.8-7.7) Lymphocytes # (Auto) 0.9 x10^3/uL (1.0-4.8) Monocytes # (Auto) 0.7 x10^3/uL (0.0-1.1) Eosinophils # (Auto) 0.0 x10^3/uL (0.0-0.7) Basophils # (Auto) 0.0 x10^3/uL (0.0-0.2) Segmented Neutrophils % 93 % (35-66) Band Neutrophils % 2 % (0-9) Lymphocytes % 2 % (24-48) Monocytes % 3 % (0-10) Platelet Estimate Adequate (ADEQUATE) Polychromasia Present Basophilic Stippling Present Target Cells Tear Drop Cells Acanthocytes Present Sodium Level 137 mmol/L (136-145) Potassium Level 4.9 mmol/L (3.5-5.1) Chloride Level 101 mmol/L (98-107) Carbon Dioxide Level 31 mmol/L (21-32) Anion Gap 5 (6-14) Blood Urea Nitrogen 39 mg/dL (7-20) Creatinine 1.1 mg/dL (0.6-1.0) Estimated GFR (Cockcroft-Gault) 48.7 Glucose Level 170 mg/dL (70-99) Calcium Level 8.9 mg/dL (8.5-10.1) Magnesium Level 2.3 mg/dL (1.8-2.4) Creatine Kinase 62 U/L (26-192) Troponin I Quantitative 0.040 ng/mL (0-0.055) Physical Exams HEENT: Neck Supple W Full Motion Chest: Symmetric Lungs: Other (diminished ) Heart: S1S2, irregularly irregular (AFIB rate 85) Abdomen: Soft N/T Extremities: No Edema Neurology: alert, oriented, follow commands Assessment Assessment 1. Acute respiratory failure with AE COPD with continued tobaccoism and mild a/c CHF 2. Persistent AFIB; SR with overall rate control 3. Mild acute on chronic systolic/diastolic heart failure; LVEF 40-45%. 4. CAD s/p PCI/stent; Most recent cath with PCI/MAUDE to the LAD and PTCA to the LCx 4. Severe PAD s/p aortobifemoral bypass with finding of SFA occlusion on the right side without any critical limb ischemia at this time 5. S/p brain tumor removal; 03/15/19 6. Hypertension; controlled 7. Hyperlipidemia 8. Tobaccoism; discussed/encouraged cessation Recommendations: Continue metoprolol and digoxin for rate control Xarelto for stroke prophylaxis Consider for outpatient cardioversion Secondary prevention measures. Follow up with Dr. Simons 07/19/18 as previously scheduled. LIZETTE HERNANDEZ APRN Jul 06, 2019 08:34
[2019-07-06] MEDS: CETIRIZINE HCL 10 MG TABLET PO SCH (08:56)
[2019-07-06] MEDS: ISOSORBIDE MONONITRATE ER 30 MG TAB.ER.24H PO SCH (08:56)
[2019-07-06] MEDS: levETIRAcetam 500 MG TABLET PO SCH (08:58)
[2019-07-06] MEDS: METOPROLOL TART IMMED RELEASE 50 MG TABLET PO SCH (08:58)
[2019-07-06] MEDS: DIGOXIN 125 MCG TABLET PO SCH (08:58)
[2019-07-06] MEDS: DOXYCYCLINE HYCLATE 100 MG TABLET PO SCH (08:58)
[2019-07-06 08:59] VITALS: BP 157/99
[2019-07-06] MEDS: methylPREDNISolone SOD SUCC PF 40 MG/ML VIAL. IV SCH (08:59)
[2019-07-06] MEDS: LISINOPRIL 20 MG TABLET PO SCH (08:59)
--- NOTE | 2019-07-06 10:13 | NUR ---
NURSING NOTE DISCHARGE PT DISCHARGED HOME WITH HOME HEALTH VIA WHEELCHAIR ACCOMPANIED BY DAUGHTER AT 1010. PT SENT WITH NEW MEDICATIONS. PREDNISONE TAPER PER [facility] AT 40MG DAILY, DECREASE BY 5 MG EVERY 4TH DAY, DOXYCYCLINE 100MG PO BID X7 DAYS, DIGOXIN 125MCG DAILY, WELLBUTRIN 150MG DAILY FOR SMOKING CESSATION , METOPROLOL 75MG BID. SCRIPTS CALLED INTO [facility]. PT GOING HOME WITH [facility]. PT GIVEN WRITTEN AND VERBAL DISCHARGE INSTRUCTIONS. PT GIVEN EDUCATION ABOUT NEW MEDICATIONS AND SMOKING CESSATION. NO COMPLICATIONS. MARYLU BURNETTE.
[2019-07-06] MEDS ORDERED: LACTOBACILLUS RHAMNOSUS GG 1 CAPSULE. PO SCH (21:00)
--- NOTE | 2019-07-12 12:43 | DS ---
DATE OF DISCHARGE: 07/06/2019 HOSPITAL COURSE: A 74-year-old female came in, was recently down in [place], increased shortness of breath, came into the hospital. She was in atrial fibrillation with rapid ventricular response. The patient was brought under control with her ventricular rate. Cardiology was consulted to her with increase of her medications. A combination of digoxin and metoprolol was used. The patient made good progress during the rest of her hospitalization with the combination of those medications to control her atrial fibrillation with RVR. The patient's blood pressure also was brought under control. It was as high as in the 180s and then by time of discharge, it went down to 157/99, pulse of 87, respiratory rate of 14. The patient's chest x-ray did not show anything acute. The patient, as noted, was seen by Cardiology. Her EKG showed atrial fibrillation with LVH. The patient made good progress overall and she was discharged home for further evaluation and treatment as an outpatient with her paratransit driver and the like. IMPRESSION: Acute respiratory failure with acute exacerbation of COPD. Unfortunately, continues tobaccoism, try to convince her to stop smoking, smoking cessation medication and information given, mild acute on top of chronic congestive heart failure, chronic atrial fibrillation with intermittent RVR, mild acute on chronic systolic and diastolic heart failure, ejection fraction of 40%, coronary artery disease, severe peripheral arterial disease with aortofemoral bypass with finding of SFA occlusion of the right side without any critical limb ischemia. She has had a brain tumor removed in 03/2019, benign hypertension, controlled, hyperlipidemia, tobaccoism as indicated, anemia of chronic disease, chronic kidney disease stage 3, hyperkalemia, hyponatremia, elevated troponins, and elevated BNP. PLAN: The patient will be discharged on a heart healthy diet, decreased activity, try to encourage her to stop smoking, and make further evaluation on her as an outpatient. CIRO AUSTIN MD DR: CHRISTIAN/kat JOB#: [id number] / [id number]
== END 2019-07-06 10:10 | disposition home health service (06) | DRG 291 ==
LOC: ER 20:57 → 1 SOUTH 22:53 → ICU 07-04 12:21
PROVIDERS: ADMIT Family Medicine; ATTEND Family Medicine
PROC: 5A09357 Assistance with Respiratory Ventilation, Less than 24 Consecutive Hours, Continuous Positive Airway Pressure (ICD-10-PCS; principal; 2019-06-30)
PROC: 5A09357 Assistance with Respiratory Ventilation, Less than 24 Consecutive Hours, Continuous Positive Airway Pressure (ICD-10-PCS; 2019-07-01)
DX: I13.0 Hypertensive heart and chronic kidney disease with heart failure and stage 1 through stage 4 chronic kidney disease, or unspecified chronic kidney disease (principal); J96.00 Acute respiratory failure, unspecified whether with hypoxia or hypercapnia; I50.43 Acute on chronic combined systolic (congestive) and diastolic (congestive) heart failure; I47.1 Supraventricular tachycardia; I48.19 Other persistent atrial fibrillation; J44.1 Chronic obstructive pulmonary disease with (acute) exacerbation; E03.9 Hypothyroidism, unspecified; E78.00 Pure hypercholesterolemia, unspecified; E78.5 Hyperlipidemia, unspecified; F17.210 Nicotine dependence, cigarettes, uncomplicated; I25.10 Atherosclerotic heart disease of native coronary artery without angina pectoris; I25.2 Old myocardial infarction; Z82.49 Family history of ischemic heart disease and other diseases of the circulatory system; Z86.14 Personal history of Methicillin resistant Staphylococcus aureus infection; Z86.011 Personal history of benign neoplasm of the brain; Z90.710 Acquired absence of both cervix and uterus; Z95.5 Presence of coronary angioplasty implant and graft; F41.9 Anxiety disorder, unspecified; M19.90 Unspecified osteoarthritis, unspecified site; Z88.2 Allergy status to sulfonamides; Z88.8 Allergy status to other drugs, medicaments and biological substances; N18.3 Chronic kidney disease, stage 3 (moderate)
CPT/HCPCS: 36415; 36600; 71045; 80048; 80053; 81001; 82550; 82803; 83605; 83735; 83880; 84145; 84484; 85007; 85025; 85379; 87641; 87804; 93005; 94640; 94644; 94660; 94760; 96374; 96375; J1160; J1940; J2920; J2930; J7620; 99291-25

== ENCOUNTER → 2019-08-15 | Outpatient (CLI) | payer MEDICARE, OTHER ==
[~2019-08-15] MED LIST changes: +BUPR150T15 PO; +DIGO125T17 PO; +LEVE500T56 PO; +METO50TA6 PO; +PRED1TAB PO; +REGADENOSON 0.4 MG/5 ML DISP.SYRIN. IV ONE
--- NOTE | 2019-08-16 13:21 | RAD ---
MR#: [id number] Date of Study: 08/15/2019 Ordering Physician: DIANA SIMONS Referring Physician: SIERRA ROTHMAN Tech: RT Sia (R) (N) APPROVED REPORT Test Type: Pharmacological Stress Nurse/Tech: Lillie Farrell Test Indications: CAD Cardiac History: See Electronic Medical Record Resting Heart Rate: 71 bpm Resting Blood Pressure: 119/66mmHg Pharm. Details Pharmacologic stress testing was performed using 0.4mg per 5ml of regadenoson given intravenously ove r 7-10 seconds. Stress Symptoms A Fib /no acute changes during stress POST EXERCISE Reason for Termination: Reached target heart rate Max HR: 99 bpm Max Blood Pressure: 127/53mmHg Blood Pressure response to exercise: Normal blood pressure response during stress. Heart Rate response to exercise: normal Chest Pain: No. Arrhythmia: No. ST Change: No. INTERPRETATION Stress EKG Conclusion: Baseline EKG showed atrial fibrillation with inferolateral ST depressions and T-wave inversions. Nondiagnostic changes at peak stress. No other arrhythmias. Imaging Protocol IMAGE PROTOCOL: Rest Tc-99m/stress Tc-99m 1 day Rest: Stress: Viability: Radiopharm.Tc99m [id number] Sestamibi [id number] 33mCi Duration 15min. 15min. Img Date 08/15/2019 08/15/2019 Inj-Img [id number]. 60min. Rest Admin Site:IV - Left AntecubitalAdministrator: RT Sia (R)(N) Stress Admin Site: IV - Left AntecubitalAdministrator: RT Sia (R)(N) STRESS DATA End Diast. Vol.59.0mlAv. Heart Rate71.0bpm End Syst. Vol.23.0mlCO Index BSA2.5L/min Myocardial Mass98.0gEject. Sotnosmq60.0% Stress Rates Pk. Fill Rate2.59EDV/secLVtime Pk. Fill 143.47msec Pk. Empty Rate2.90ESV/secLVtime Pk. Qduxe048.34msec 07/07 Pk. Fill1.58EDV/sec Stress Scores Regional WT1.00Summed WT12.00 Regional WM1.00Summed WM18.00 LV Perfusion Scintigraphic images showed small to moderate fixed defect involving the base to mid inferior wall co nsistent with previous myocardial infarction without any reversibility. Also seen was small fixed def ect involving the anteroseptal wall consistent with previous myocardial infarction without any revers ibility. Wall Motion Basal inferior wall hypokinesis with ejection fraction calculated at 61%. LV Perf. Quant 17 Seg. SSS9.00 17 Seg. SRS9.00 17 Seg. SDS4.00 Stress Defect Extent (% LAD)5.60Rest Defect Extent (% LAD)26.90Rev. Defect Extent (% LAD)0.00 Stress Defect Extent (% LCX) 11.30Rest Defect Extent (% LCX)0.00Rev. Defect Extent (% LCX)8.80 Stress Defect Extent (% RCA)25.60Rest Defect Extent (% RCA)12.20Rev. Defect Extent (% RCA)4.40 Stress Defect Extent (% RADHA)14.30Rest Defect Extent (% RADHA)16.50Rev. Defect Extent (% RADHA)4.10 Conclusion 1. Regadenoson cardioisotope stress test showed wzfke-eu-yasgczul infarct involving the base to mid i nferior wall without any ischemia. Also seen was small infarct involving the anteroseptal wall withou t any ischemia. 2. Basal inferior wall hypokinesis with ejection fraction calculated at 61%. 3. Low to intermediate risk for cardiac events. Signed by : Diana Simons, Electronically Approved : 08/15/2019 13:20:59
== END | disposition home or self-care (01) ==
LOC: NM 09:03
PROVIDERS: ATTEND Internal Medicine Cardiovascular Disease
DX: I21.19 ST elevation (STEMI) myocardial infarction involving other coronary artery of inferior wall (principal); I48.91 Unspecified atrial fibrillation; I25.10 Atherosclerotic heart disease of native coronary artery without angina pectoris; I25.2 Old myocardial infarction; I10 Essential (primary) hypertension; F17.200 Nicotine dependence, unspecified, uncomplicated; Z79.01 Long term (current) use of anticoagulants
CPT/HCPCS: 78452; 93017; A9500; J2785